=== PATIENT | female | born 1965 | race Caucasian/White ===

== ENCOUNTER → 2016-12-06 | Outpatient (CLI) | payer BC ==
[~2016-12-06] MED LIST: DAPA10TA PO; DOXY100C2 PO; DULO30CA48 PO; EMPA10TA PO; ERGO500028 PO; FLUC150T PO; FLUC150T2 PO; FOLI0.4T2 PO; GBPN100C PO; HYDR-2890 PO; INSU100I10 SQ; LEVE1U SQ; MELO-195 PO; MTF500T PO; NITR100C10 PO; OXYC20TA63 PO; PREG150C PO; TRAM50TA2 PO; VITA150T PO
--- OUTSIDE RECORDS SUMMARY | 2016-12-06 14:06 | XMS REPORT | Continuity of Care Document ---
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 If you do not see the information that you expected, contact Release of Information in the Health Information Management department at [phone] for further assistance in locating additional records.[facility] Active Allergies and Adverse Reactions Allergen Noted Date Severity Reactions Comments Sulfa (Sulfonamide 09/09/2016 Medium HIVES Antibiotics) Current Medications Prescription Sig. Disp. Refills Start End Date Status Date pregabalin (LYRICA) 75 mg Take 75 mg by mouth twice Active capsule daily. MELOXICAM PO Take by mouth. Active duloxetine DR (CYMBALTA) Take 30 mg by mouth Active 30 mg capsule daily. HYDROcodone/acetaminophen Take 1 Tab by mouth every Active (+) (NORCO) 10/325 mg 6 hours as needed for tablet Pain potassium Active ERGOCALCIFEROL (VITAMIN Take by mouth. Active D2) (VITAMIN D PO) MECOBALAMIN/L-MEFOLATE/B6 Take by mouth. Active PHOS (METANX PO) Active Problems Problem Noted Date Multiple thyroid nodules 09/09/2016 Most Recent Encounters Date Type Specialty Providers Description 09/09/2016 Office Visit Otolaryngology Taye Figueroa MD Multiple thyroid nodules (Primary Dx) Social History Tobacco Use Types Packs/Day Years Used Date Never Smoker Smokeless Tobacco: Never Used Alcohol Use Drinks/Week oz/Week Comments Yes 1 Cans of 0.6 beer Last Filed Vital Signs Vital Sign Reading Time Taken Blood Pressure 148/93 09/09/2016 11:15 AM CDT Pulse 101 09/09/2016 11:15 AM CDT Temperature - - Respiratory Rate - - Height 1.753 m (5' 9") 09/09/2016 11:15 AM CDT Weight 92.625 kg (204 lb 3.2 oz) 09/09/2016 11:15 AM CDT Body Mass Index 30.14 09/09/2016 11:15 AM CDT Oxygen Saturation - - Plan of Care Date Type Specialty Providers Description 01/10/2017 Appointment Radiology Taye Figueroa MD [address] [facility] [address] [place] [address] [phone] (Fax) 03/10/2017 Appointment Otolaryngology Taye Figueroa MD [address] [facility] [address] [place] [address] [phone] (Fax) Health Maintenance Due Date Last Done Comments Physical (Comprehensive) 1973 Exam Pertussis Vaccine 1977 Tetanus Vaccine 1983 Cervical Cancer Screening 1987 Breast Cancer Screening 2006 Influenza Vaccine 07/22/2016 Colorectal Cancer 2016 Screening Results from Last 3 Months Not on file
--- NOTE | 2016-12-06 14:54 | Diagnostic Imaging Report ---
INDICATION: Pelvic pain, fibroids noted on recent MRI. COMPARISON: No previous ultrasound. DISCUSSION: Transabdominal and transvaginal sonographic evaluation of the pelvis was performed. The uterus is normal in echotexture and size measuring 8.4 x 6.2 x 4.7 cm. Normal endometrial thickness measuring 0.4 cm. Solid shadowing foci within the uterus are most consistent with uterine fibroids. The largest measures 1.7 cm on the right. The second largest on the left measures 1.3 cm. There is likely an additional subcentimeter fibroid also present. Neither ovary was visualized. No abnormal adnexal mass or fluid. IMPRESSION: 1. Fibroid uterus. 2. Nonvisualization of the ovaries. Dictated by: Dictated on workstation # [id number]
== END ==
LOC: RAD 14:03
PROVIDERS: ATTEND Nurse Practitioner Family
DX: R10.2 Pelvic and perineal pain (principal)
CPT/HCPCS: 76830; 76856

== ENCOUNTER 2017-01-09 12:29 | Emergency (ER) | payer BC, OTHER ==
[~2017-01-09] VITALS: Ht 172.7 cm; Wt 77.1 kg
[~2017-01-09 12:29] MED LIST changes: -FLUC150T2 PO
--- OUTSIDE RECORDS SUMMARY | 2017-01-09 12:34 | XMS REPORT | Continuity of Care Document ---
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 If you do not see the information that you expected, contact Release of Information in the Health Information Management department at [phone] for further assistance in locating additional records.[facility] Active Allergies and Adverse Reactions [...] Problem Noted Date Multiple thyroid nodules 09/09/2016 Social History Tobacco Use Types Packs/Day Years [...] 01/10/2017 Appointment Radiology Taye Figueroa MD [address] [facility] [address] [place] [address] [phone] (Fax) 03/10/2017 Appointment Otolaryngology Taye Figueroa MD [address] [facility] [address] [place] [address] [phone] (Fax) Health Maintenance Due Date Last Done Comments Physical (Comprehensive) 1973 Exam Pertussis Vaccine 1977 Tetanus Vaccine 1983 Cervical Cancer Screening 1987 Breast Cancer Screening 2006 Influenza Vaccine 07/22/2016 Colorectal Cancer 2016 Screening Results from Last 3 Months Not on file
--- NOTE | 2017-01-09 13:00 | ED General ---
General Stated Complaint: HIGH BS Source of Information: Patient, Family Exam Limitations: No Limitations History of Present Illness Time Seen by Provider: 12:48 Initial Comments Patient presents the ER with complaint of unable to keep her blood sugars down high at 450. Will she get him was in the 300s. This is been going on since this morning she started feeling some nausea and vomiting after waking up. She did eat breakfast breath and oatmeal. Despite her nausea she has not vomited yet. She has had no other constitutional symptoms to include fever nausea, chills, diarrhea, constipation, rash, malaise, nasal congestion, ear fullness. She does have a history of chronic headaches and fibromyalgia which is at her baseline at this point. She was given butalbital with caffeine from her PCP but is not taking it yet. She states she was in the hospital a year or 2 ago for similar problem where she could not get her blood sugars under control but denies having diabetic ketoacidosis. She denies dysuria or discharge. She is postmenopausal. Allergies and Home Medications Allergies Coded Allergies: Sulfa (Sulfonamide Antibiotics) (Verified Allergy, Mild, 04/14/13) Home Medications Fluconazole 150 Mg Tablet #1 150 MG PO ONCE Prescribed by: RODOLFO TANG on 01/09/17 1406 Folic Acid 0.4 Mg Tablet 0.4 MG PO DAILY (Reported) Hydrocodone Bit/Acetaminophen 1 Each Tablet #30 1 TAB PO HS (Reported) Insulin Determir 1 Unit/0.01 Ml Soln 30Days 24 UNIT SQ HS Prescribed by: JANE DWYER on 06/01/15 1125 Meloxicam 15 Mg Tablet #30 15 MG PO DAILY (Reported) Metformin Hcl 500 Mg Tablet 500 MG PO BID WITH MEALS (Reported) Metformin Hcl 500 Mg Tab 30Days 500 MG PO DAILY@ Prescribed by: JANE DWYER on 06/01/15 1125 Nitrofurantoin Monohyd/M-Cryst 100 Mg Capsule #14 1 CAP PO BID (Reported) Oxycodone Hcl 20 Mg Tab.sr.12h #60 20 MG PO DAILY PRN PRN PAIN (Reported) Pregabalin 150 Mg Capsule 150 MG PO BID (Reported) Tramadol Hcl 50 Mg Tablet 50 MG PO DAILY PRN PRN PAIN (Reported) Vitamin B Complex & Vit C No.4 150 Mg Tablet 150 MG PO DAILY (Reported) Constitutional: No chills, No diaphoresis, No dizziness, No fever EENTM: see HPINo blurred vision, No double vision, No ear discharge, No ear pain, No hearing loss, No mouth pain, No nose congestion Respiratory: No cough, No dyspnea on exertion, No phlegm, No short of breath, No wheezing Cardiovascular: No chest pain, No edema, No syncope Gastrointestinal: No abdominal pain, No constipation, diarrhea (occasional, last loose stool was 2 days ago) nauseaNo vomiting Genitourinary: No discharge, No dysuria, No frequency Musculoskeletal: see HPI (fibromyalgia general body aches and headache) Skin: No pruritus, No rash Psychiatric/Neurological: Denies Anxiety, Denies Depressed, Headache Past Ybiseku-Stglav-Vecldx Hx Patient Social History Alcohol Use: Denies Use Recreational Drug Use: No Recent Foreign Travel: No Contact w/Someone Who Travel: No Seasonal Allergies Seasonal Allergies: No Surgeries HX Surgeries: Yes Surgeries: Section, Gallbladder Respiratory Hx Respiratory Disorders: No Cardiovascular Hx Cardiac Disorders: No Neurological Hx Neurological Disorders: Yes Neurological Disorders: Headaches /Migraines Reproductive System Hx Reproductive Disorders: No Sexually Transmitted Disease: No HIV/AIDS: No 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 Physical Exam Vital Signs Vital Sign - Last 12Hours 01/09/17 12:50 Temp 98.4 Pulse 96 Resp 16 B/P 148/114 Pulse Ox 98 O2 Delivery Room Air Capillary Refill : General Appearance: WD/WN Mild Distress (complaint of headache with photophobia) Eyes: Bilateral Eye EOMI, Bilateral Eye Normal Inspection, Bilateral Eye PERRL HEENT: PERRL/EOMI TMs Normal Normal ENT Inspection Pharynx Normal Neck: Full Range of Motion Normal Inspection Non Tender Supple Respiratory: Chest Non Tender Lungs Clear Normal Breath Sounds Cardiovascular: Regular Rate, Rhythm No Edema Normal Peripheral Pulses Gastrointestinal: Normal Bowel Sounds No Organomegaly Non Tender Soft Back: Normal Inspection No Vertebral Tenderness CVA Tenderness (L) CVA Tenderness (R) Extremity: Normal Capillary Refill Normal Inspection No Calf Tenderness No Pedal Edema Neurologic/Psychiatric: Alert Oriented x3 No Motor/Sensory Deficits Normal Mood/Affect Skin: Normal Color Warm/Dry Progress/Results/Core Measures Results/Orders Lab Results Laboratory Tests Test 01/09/17 12:55 01/09/17 12:57 01/09/17 13:16 01/09/17 14:06 Range/Units Glucometer 306 H 255 H 70-110 MG/DL Alanine Aminotransferase (ALT/SGPT) 29 0-55 U/L Albumin 3.7 3.2-4.5 G/DL Alkaline Phosphatase 130 40-136 U/L Amylase Level 18 L 25-125 U/L Anion Gap 9 5-14 MMOL/L Aspartate Amino Transf (AST/SGOT) 20 5-34 U/L BUN/Creatinine Ratio 8 Basophils # (Auto) 0.1 0.0-0.1 10^3/uL Basophils (%) (Auto) 1 0-10 % Blood Urea Nitrogen 6 L 7-18 MG/DL Calcium Level 9.3 8.5-10.1 MG/DL Carbon Dioxide Level 30 21-32 MMOL/L Chloride Level 99 98-107 MMOL/L Creatinine 0.72 0.60-1.30 MG/DL Eosinophils # (Auto) 0.1 0.0-0.3 10^3/uL Eosinophils (%) (Auto) 1 0-10 % Estimat Glomerular Filtration Rate > 60 Glucose Level 315 H 70-105 MG/DL Hematocrit 38 35-52 % Hemoglobin 13.8 11.5-16.0 G/DL Lymphocytes # (Auto) 2.2 1.0-4.0 X 10^3 Lymphocytes (%) (Auto) 25 12-44 % Magnesium Level 2.0 1.8-2.4 MG/DL Mean Corpuscular Hemoglobin 30 25-34 PG Mean Corpuscular Hemoglobin Concent 36 32-36 G/DL Mean Corpuscular Volume 84 80-99 FL Mean Platelet Volume 9.5 7.4-10.4 FL Monocytes # (Auto) 0.6 0.0-1.0 X 10^3 Monocytes (%) (Auto) 7 0-12 % Neutrophils # (Auto) 5.8 1.8-7.8 X 10^3 Neutrophils (%) (Auto) 67 42-75 % Platelet Count 332 130-400 10^3/uL Potassium Level 3.6 3.6-5.0 MMOL/L Red Blood Count 4.58 4.35-5.85 10^6/uL Red Cell Distribution Width 13.5 10.0-14.5 % Sodium Level 138 135-145 MMOL/L Thyroid Stimulating Hormone (TSH) 0.98 0.35-4.94 UIU/ML Total Bilirubin 0.9 0.1-1.0 MG/DL Total Protein 6.7 6.4-8.2 G/DL White Blood Count 8.7 4.3-11.0 10^3/uL Urine Bacteria FEW H /HPF Urine Bilirubin NEGATIVE NEGATIVE Urine Casts NONE /LPF Urine Clarity CLEAR Urine Color YELLOW Urine Crystals NONE /LPF Urine Culture Indicated NO Urine Glucose (UA) 4+ H NEGATIVE Urine Ketones NEGATIVE NEGATIVE Urine Leukocyte Esterase 1+ H NEGATIVE Urine Mucus NEGATIVE /LPF Urine Nitrite NEGATIVE NEGATIVE Urine Protein 1+ H NEGATIVE Urine RBC NONE /HPF Urine RBC (Auto) NEGATIVE NEGATIVE Urine Specific [place] 1.020 1.016-1.022 Urine Squamous Epithelial Cells 25-50 H /HPF Urine Urobilinogen NORMAL NORMAL MG/DL Urine WBC NONE /HPF Urine Yeast FEW H /HPF Urine pH 6.5 5-9 My Orders Orders-RODOLFO TANG Amylase (01/09/17 13:00) Cbc With Automated Diff (01/09/17 13:00) Comprehensive Metabolic Panel (01/09/17 13:00) Magnesium (01/09/17 13:00) Thyroid Stimulating Hormone (01/09/17 13:00) Ua Culture If Indicated (01/09/17 13:00) Accucheck Stat ONCE (01/09/17 13:08) Saline Lock/Iv-Start (01/09/17 13:08) Insulin (Regular) Human (Humulin R (Per (01/09/17 13:30) Insulin (Regular) Human (Humulin R (Per (01/09/17 13:30) Ondansetron Injection (Zofran Injectio (01/09/17 13:30) Lactated Ringers (Lr 1000 Ml Iv Solution (01/09/17 14:01) Promethazine Tablet (Phenergan Tablet) (01/09/17 14:15) Accucheck Stat ONCE (01/09/17 14:14) Medications Given in ED Current Medications Medications Dose Ordered Sig/Cher Route Start Time Stop Time Status Last Admin Dose Admin Insulin Human Regular 7 unit ONCE ONCE IV 01/09/17 13:30 01/09/17 13:31 DC 01/09/17 13:33 7 UNIT Lactated Ringer's 1,000 ml @ 0 mls/hr Q0M ONCE IV 01/09/17 14:01 01/09/17 14:03 DC 01/09/17 14:18 0 MLS/HR Ondansetron HCl 4 mg 4 mg ONCE ONCE IVP 01/09/17 13:30 01/09/17 13:31 DC 01/09/17 13:33 4 MG Promethazine HCl 25 mg ONCE ONCE PO 01/09/17 14:15 01/09/17 14:16 DC 01/09/17 14:18 25 MG Vital Signs/I&O Vital Sign - Last 12Hours 01/09/17 12:50 Temp 98.4 Pulse 96 Resp 16 B/P 148/114 Pulse Ox 98 O2 Delivery Room Air Progress Note : Time: 13:13 Progress Note Review the urine and basic set of blood. There is no focal signs of infection to drive her blood glucose is high. 306 in the ED on admission. Patient is not necessarily fastidious about taking her insulin and does not take any extra insulin when her sugars are high. She is on a long-acting 30 units daily at bedtime. She's not in DKA we'll give her a liter fluids and give her instructions on how to use her insulin. 0.1 units per kilogram one time dose regular insulin. 7 units. Departure Impression Impression: Primary Impression: Diabetes mellitus Qualified Code: E11.8 - Type 2 diabetes mellitus with unspecified complications Additional Impressions: Hyperglycemia Yeast cells and fungal elements present on diagnostic testing Disposition: 01 HOME, SELF-CARE Condition: Improved Departure-Patient Inst. Decision time for Depature: 14:40 Referrals: ROBERT BELLE DNP (PCP) Primary Care Physician Patient Instructions: Diabetes Type 2 (DC) Add. Discharge Instructions: You have diabetes type 2 which will require more insulin. You should take 40 units of Levemir tonight when you get home and eat a sensible carbohydrate controlled diet. Keep your follow-up appointment in the morning with your primary care physician. Drink plenty of fluids. If your symptoms return, worsen or new symptoms appear you should return to the clinic or ER as appropriate. If your headache returns it is appropriate to Use the medicine prescribed by your primary care physician as needed. Your urinalysis incidentally showed some yeast which may represent a yeast infection so I have given you a prescription for a single dose of fluconazole. Pick this up from your pharmacy and take it when you get home with some food. Scripts Fluconazole 150 Mg [id number] Mg PO ONCE #1 TAB Ref 0 Prov:RODOLFO TANG 01/09/17 RODOLFO TANG Jan 09, 2017 13:00
[2017-01-09 13:11] LABS: BASOPHILS # (AUTO) 0.1 10^3/uL (0.0-0.1); BASOPHILS % (AUTO) 1 % (0-10); EOSINOPHILS # (AUTO) 0.1 10^3/uL (0.0-0.3); EOSINOPHILS % (AUTO) 1 % (0-10); LYMPHOCYTES # (AUTO) 2.2 X 10^3 (1.0-4.0); LYMPHOCYTES % (AUTO) 25 % (12-44); MEAN CORPUSCULAR HEMOGLOBIN 30 PG (25-34); MEAN CORPUSCULAR HGB CONC 36 G/DL (32-36); MEAN CORPUSCULAR VOLUME 84 FL (80-99); MEAN PLATELET VOLUME 9.5 FL (7.4-10.4); MONOCYTES # (AUTO) 0.6 X 10^3 (0.0-1.0); MONOCYTES % (AUTO) 7 % (0-12); NEUTROPHILS # (AUTO) 5.8 X 10^3 (1.8-7.8); NEUTROPHILS % (AUTO) 67 % (42-75); PLATELET COUNT 332 10^3/uL (130-400); RED BLOOD COUNT 4.58 10^6/uL (4.35-5.85); RED CELL DISTRIBUTION WIDTH 13.5 % (10.0-14.5); WHITE BLOOD COUNT 8.7 10^3/uL (4.3-11.0)
[2017-01-09 13:23] LABS: ALANINE AMINOTRANSFERASE 29 U/L (0-55); ALBUMIN 3.7 G/DL (3.2-4.5); AMYLASE 18 U/L (25-125); ANION GAP 9 MMOL/L (5-14); ASPARTATE AMINO TRANSFERASE 20 U/L (5-34); BILIRUBIN,TOTAL 0.9 MG/DL (0.1-1.0); BLOOD UREA NITROGEN 6 MG/DL (7-18); BUN/CREATININE RATIO 8; CALCIUM 9.3 MG/DL (8.5-10.1); CARBON DIOXIDE 30 MMOL/L (21-32); CHLORIDE 99 MMOL/L (98-107); CREATININE SERUM 0.72 MG/DL (0.60-1.30); GFR ESTIMATED > 60; GLUCOSE 315 MG/DL (70-105); POTASSIUM 3.6 MMOL/L (3.6-5.0); SODIUM 138 MMOL/L (135-145); TOTAL PROTEIN 6.7 G/DL (6.4-8.2)
[2017-01-09 13:27] LABS: BILIRUBIN,URINE NEGATIVE (NEGATIVE); KETONES,URINE NEGATIVE (NEGATIVE); LEUKOCYTE ESTERASE ,URINE 1+ (NEGATIVE); NITRITE,URINE NEGATIVE (NEGATIVE); PH,URINE 6.5 (5-9); PROTEIN,URINE 1+ (NEGATIVE); UROBILINOGEN,URINE NORMAL (NORMAL)
[2017-01-09] MEDS ORDERED: ONDANSETRON 4 MG/2 ML (SDV) Z0FRAN IVP ONE (13:30)
[2017-01-09] MEDS ORDERED: inSUlin (REGULAR) HUMAN 1 UNIT/0.01 ML (CHARGE PER UNIT) IV ONE (13:30)
[2017-01-09] MEDS ORDERED: inSUlin (REGULAR) HUMAN 1 UNIT/0.01 ML (CHARGE PER UNIT) SC ONE (13:30)
[2017-01-09 13:42] LABS: SQUAMOUS EPITHELIAL CELL,UR 25-50 /HPF; YEAST,URINE FEW /HPF
[2017-01-09 13:43] LABS: THYROID STIMULATING HORMONE 0.98 UIU/ML (0.35-4.94)
[2017-01-09] MEDS ORDERED: LACTATED RINGERS 1,000 ML IV ONE (14:01)
[2017-01-09] MEDS ORDERED: FLUC150T2 PO (14:06)
[2017-01-09] MEDS ORDERED: PROMETHAZINE 25 MG (PHENERGAN) TAB PO ONE (14:15)
[2017-01-09 15:09] VITALS: BP 156/89
== END 2017-01-09 15:10 | disposition home or self-care (01) ==
LOC: EDUNIT# 12:29 → ER 12:31
DX: E11.65 Type 2 diabetes mellitus with hyperglycemia (principal); M79.7 Fibromyalgia; Z79.84 Long term (current) use of oral hypoglycemic drugs; Z79.4 Long term (current) use of insulin
CPT/HCPCS: 36415; 80053; 81000; 82150; 82962; 83735; 84443; 85025; 96361; 96374; 96375

== ENCOUNTER → 2017-07-26 | Outpatient (CLI) | payer BC, OTHER ==
[~2017-07-26] MED LIST changes: +FLUC150T2 PO
--- NOTE | 2017-07-26 12:17 | Diagnostic Imaging Report ---
PROCEDURE: US left lower extremity venous. TECHNIQUE: Multiple real-time grayscale images were obtained over the left lower extremity in various projections. Additional duplex Doppler and color Doppler images were also obtained. INDICATION: Left leg pain with redness and swelling FINDINGS: The left common femoral femoral and popliteal veins demonstrate normal response to compression, augmentation and Valsalva. There is a heterogeneous area adjacent to the red area on the lateral thigh. This may reflect cellulitis although there is no drainable fluid collection to suggest abscess. This measures approximately 4 x 3 x 2.6 cm. There are no other discrete fluid collections or masses. IMPRESSION: No evidence of deep venous thrombosis in the left lower extremity. Heterogeneous area along the lateral aspect of thigh, suspect for focal cellulitis without evidence of abscess. Dictated by: Dictated on workstation # [id number]
== END ==
LOC: RAD 11:39
DX: M79.652 Pain in left thigh (principal); R22.42 Localized swelling, mass and lump, left lower limb

== ENCOUNTER → 2017-08-22 | Outpatient (CLI) | payer BC ==
--- NOTE | 2017-08-22 17:50 | Diagnostic Imaging Report ---
INDICATION: Followup lump medial thigh. COMPARISON: 07/26/2017. FINDINGS: As seen on the prior ultrasound, there is an ill-defined heterogeneous lesion in the medial distal left thigh without discrete drainable fluid collection. The overall size of this lesion today measures about 2.5 cm x 2 cm x 3.6 cm, previously measuring 2.9 cm x 2.6 cm x 4 cm. It appears slightly smaller today. Again this is nonspecific but may be related to an underlying cellulitis. IMPRESSION: Ill-defined heterogeneous lesion in the medial left thigh persists but is smaller in size and conspicuity when compared to the prior study. Again, there is no drainable fluid collection and this may be secondary to cellulitis. Dictated by: Dictated on workstation # [id number]
== END ==
LOC: RAD 16:57
PROVIDERS: ATTEND Surgery
DX: L98.9 Disorder of the skin and subcutaneous tissue, unspecified (principal)
CPT/HCPCS: 76881

== ENCOUNTER → 2017-11-20 | Outpatient (CLI) | payer BC ==
[2017-11-20 10:10] LABS: BASOPHILS # (AUTO) 0.1 10^3/uL (0.0-0.1); BASOPHILS % (AUTO) 1 % (0-10); EOSINOPHILS # (AUTO) 0.1 10^3/uL (0.0-0.3); EOSINOPHILS % (AUTO) 2 % (0-10); HEMATOCRIT 44 % (35-52); HEMOGLOBIN 15.3 G/DL (11.5-16.0); LYMPHOCYTES # (AUTO) 2.3 X 10^3 (1.0-4.0); LYMPHOCYTES % (AUTO) 32 % (12-44); MEAN CORPUSCULAR HEMOGLOBIN 29 PG (25-34); MEAN CORPUSCULAR HGB CONC 35 G/DL (32-36); MEAN CORPUSCULAR VOLUME 83 FL (80-99); MEAN PLATELET VOLUME 9.7 FL (7.4-10.4); MONOCYTES # (AUTO) 0.5 X 10^3 (0.0-1.0); MONOCYTES % (AUTO) 7 % (0-12); NEUTROPHILS # (AUTO) 4.1 X 10^3 (1.8-7.8); NEUTROPHILS % (AUTO) 58 % (42-75); PLATELET COUNT 306 10^3/uL (130-400); RED BLOOD COUNT 5.33 10^6/uL (4.35-5.85); RED CELL DISTRIBUTION WIDTH 12.9 % (10.0-14.5)
[2017-11-20 10:30] LABS: ALANINE AMINOTRANSFERASE 28 U/L (0-55); ALKALINE PHOSPHATASE 182 U/L (40-136); BILIRUBIN,TOTAL 1.3 MG/DL (0.1-1.0); BUN/CREATININE RATIO 8; CALCIUM 9.5 MG/DL (8.5-10.1); CARBON DIOXIDE 29 MMOL/L (21-32); CHLORIDE 100 MMOL/L (98-107); CHOLESTEROL 207 MG/DL (< 200); CREATININE SERUM 0.71 MG/DL (0.60-1.30); GFR ESTIMATED > 60; GLUCOSE 144 MG/DL (70-105); HDL CHOLESTEROL 57 MG/DL (40-60); MAGNESIUM 1.8 MG/DL (1.8-2.4); POTASSIUM 3.6 MMOL/L (3.6-5.0); SODIUM 139 MMOL/L (135-145); TOTAL PROTEIN 8.4 GM/DL (6.4-8.2); TRIGLYCERIDES 113 MG/DL (<150); VLDL CHOLESTEROL 23 MG/DL (5-40)
== END ==
LOC: LAB 09:49
PROVIDERS: ATTEND Internal Medicine
DX: E11.9 Type 2 diabetes mellitus without complications (principal); E78.5 Hyperlipidemia, unspecified
CPT/HCPCS: 36415; 80053; 80061; 82306; 82308; 82728; 83036; 83735; 84443; 85025; 86038; 86141

== ENCOUNTER → 2018-03-10 | Outpatient (CLI) | payer BC ==
[2018-03-10 13:08] LABS: BASOPHILS # (AUTO) 0.1 10^3/uL (0.0-0.1); BASOPHILS % (AUTO) 1 % (0-10); EOSINOPHILS # (AUTO) 0.2 10^3/uL (0.0-0.3); EOSINOPHILS % (AUTO) 2 % (0-10); HEMATOCRIT 39 % (35-52); HEMOGLOBIN 13.7 G/DL (11.5-16.0); LYMPHOCYTES # (AUTO) 3.1 X 10^3 (1.0-4.0); LYMPHOCYTES % (AUTO) 31 % (12-44); MEAN CORPUSCULAR HEMOGLOBIN 29 PG (25-34); MEAN CORPUSCULAR HGB CONC 35 G/DL (32-36); MEAN CORPUSCULAR VOLUME 82 FL (80-99); MEAN PLATELET VOLUME 9.3 FL (7.4-10.4); MONOCYTES # (AUTO) 0.8 X 10^3 (0.0-1.0); MONOCYTES % (AUTO) 8 % (0-12); NEUTROPHILS # (AUTO) 6.1 X 10^3 (1.8-7.8); NEUTROPHILS % (AUTO) 60 % (42-75); PLATELET COUNT 313 10^3/uL (130-400); RED BLOOD COUNT 4.73 10^6/uL (4.35-5.85); RED CELL DISTRIBUTION WIDTH 13.1 % (10.0-14.5); WHITE BLOOD COUNT 10.1 10^3/uL (4.3-11.0)
--- NOTE | 2018-03-10 13:10 | Diagnostic Imaging Report ---
INDICATION: Foot ulcer plantar aspect of the right foot at the level of the base of the second toe. TIME OF EXAMINATION: 01:08 p.m. FINDINGS: A BB marker is placed at the area of ulcer. Three views of the right foot were obtained. No definite soft tissue gas is identified. No bony destructive changes are seen to suggest acute osteomyelitis. No fractures are identified. The right foot is generally demineralized. IMPRESSION: Demineralization. No soft tissue gas or bony destructive changes are seen to suggest acute osteomyelitis. Dictated by: Dictated on workstation # [id number]
[2018-03-10 13:22] LABS: ALANINE AMINOTRANSFERASE 25 U/L (0-55); ALBUMIN 3.7 GM/DL (3.2-4.5); ALKALINE PHOSPHATASE 162 U/L (40-136); BILIRUBIN,TOTAL 0.9 MG/DL (0.1-1.0); BUN/CREATININE RATIO 15; CALCIUM 8.9 MG/DL (8.5-10.1); CARBON DIOXIDE 29 MMOL/L (21-32); CHLORIDE 101 MMOL/L (98-107); CREATININE SERUM 0.68 MG/DL (0.60-1.30); GFR ESTIMATED > 60; GLUCOSE 180 MG/DL (70-105); POTASSIUM 3.5 MMOL/L (3.6-5.0); SODIUM 137 MMOL/L (135-145); TOTAL PROTEIN 7.2 GM/DL (6.4-8.2)
== END ==
LOC: RAD 12:24
PROVIDERS: ATTEND Surgery
DX: M81.0 Age-related osteoporosis without current pathological fracture (principal); E11.621 Type 2 diabetes mellitus with foot ulcer; E11.42 Type 2 diabetes mellitus with diabetic polyneuropathy; L97.512 Non-pressure chronic ulcer of other part of right foot with fat layer exposed; M79.7 Fibromyalgia
CPT/HCPCS: 36415; 73630; 80053; 83036; 85025

== ENCOUNTER → 2018-03-20 | Outpatient (CLI) | payer BC | LOC: WOUNDCARE 08:12 | PROVIDERS: ATTEND Nurse Practitioner | DX: E11.621 Type 2 diabetes mellitus with foot ulcer (principal); L97.512 Non-pressure chronic ulcer of other part of right foot with fat layer exposed; E11.42 Type 2 diabetes mellitus with diabetic polyneuropathy; M79.7 Fibromyalgia | CPT/HCPCS: 11042 ==

== ENCOUNTER → 2018-03-27 | Outpatient (CLI) | payer BC | LOC: WOUNDCARE 08:30 | PROVIDERS: ATTEND Surgery | DX: E11.621 Type 2 diabetes mellitus with foot ulcer (principal); L97.512 Non-pressure chronic ulcer of other part of right foot with fat layer exposed; E11.42 Type 2 diabetes mellitus with diabetic polyneuropathy; M79.7 Fibromyalgia | CPT/HCPCS: 11042 ==

== ENCOUNTER → 2018-03-29 | Outpatient (CLI) | payer BC | LOC: WOUNDCARE 08:15 | PROVIDERS: ATTEND Surgery | DX: E11.621 Type 2 diabetes mellitus with foot ulcer (principal); L97.512 Non-pressure chronic ulcer of other part of right foot with fat layer exposed; E11.42 Type 2 diabetes mellitus with diabetic polyneuropathy; M79.7 Fibromyalgia | CPT/HCPCS: 29445 ==

== ENCOUNTER → 2018-04-05 | Outpatient (CLI) | payer BC | LOC: WOUNDCARE 08:19 | PROVIDERS: ATTEND Surgery | DX: E11.621 Type 2 diabetes mellitus with foot ulcer (principal); L97.512 Non-pressure chronic ulcer of other part of right foot with fat layer exposed; E11.42 Type 2 diabetes mellitus with diabetic polyneuropathy; M79.7 Fibromyalgia | CPT/HCPCS: 11042 ==

== ENCOUNTER → 2018-04-12 | Outpatient (CLI) | payer BC | LOC: WOUNDCARE 08:10 | PROVIDERS: ATTEND Surgery | DX: E11.621 Type 2 diabetes mellitus with foot ulcer (principal); E11.42 Type 2 diabetes mellitus with diabetic polyneuropathy; L97.512 Non-pressure chronic ulcer of other part of right foot with fat layer exposed; M79.7 Fibromyalgia | CPT/HCPCS: 11042 ==

== ENCOUNTER → 2018-04-19 | Outpatient (CLI) | payer BC | LOC: WOUNDCARE 09:48 | PROVIDERS: ATTEND Surgery | DX: E11.621 Type 2 diabetes mellitus with foot ulcer (principal); L97.512 Non-pressure chronic ulcer of other part of right foot with fat layer exposed; E11.42 Type 2 diabetes mellitus with diabetic polyneuropathy; M79.7 Fibromyalgia | CPT/HCPCS: 11042 ==

== ENCOUNTER → 2018-04-26 | Outpatient (CLI) | payer BC | LOC: WOUNDCARE 08:29 | PROVIDERS: ATTEND Surgery | DX: E11.621 Type 2 diabetes mellitus with foot ulcer (principal); E11.42 Type 2 diabetes mellitus with diabetic polyneuropathy; L97.512 Non-pressure chronic ulcer of other part of right foot with fat layer exposed; M79.7 Fibromyalgia | CPT/HCPCS: 11042 ==

== ENCOUNTER → 2018-05-03 | Outpatient (CLI) | payer BC | LOC: WOUNDCARE 08:12 | PROVIDERS: ATTEND Surgery | DX: E11.621 Type 2 diabetes mellitus with foot ulcer (principal); E11.42 Type 2 diabetes mellitus with diabetic polyneuropathy; L97.512 Non-pressure chronic ulcer of other part of right foot with fat layer exposed; M79.7 Fibromyalgia | CPT/HCPCS: 29445 ==

== ENCOUNTER → 2018-05-10 | Outpatient (CLI) | payer BC ==
[~2018-05-10] MED LIST changes: +LIDOCAINE PF 2% 5 ML (XYLOCAINE) VIAL ONE
== END ==
LOC: WOUNDCARE 08:09
PROVIDERS: ATTEND Surgery
DX: E11.621 Type 2 diabetes mellitus with foot ulcer (principal); L97.512 Non-pressure chronic ulcer of other part of right foot with fat layer exposed
CPT/HCPCS: 99212

== ENCOUNTER → 2018-05-22 | Outpatient (CLI) | payer BC ==
[~2018-05-22] MED LIST changes: -LIDOCAINE PF 2% 5 ML (XYLOCAINE) VIAL ONE
--- NOTE | 2018-05-22 16:08 | Diagnostic Imaging Report ---
INDICATION: Pain and swelling. COMPARISON: None. FINDINGS: Three views of the right ankle are obtained. There is moderate soft tissue swelling. No acute fracture, malalignment or osseous destructive process is seen. Joint spaces preserved. IMPRESSION: Soft tissue swelling without evidence of an acute osseous abnormality. Dictated by: Dictated on workstation # [id number]
[2018-05-22 16:16] LABS: MEAN PLATELET VOLUME 9.6 FL (7.4-10.4); RED BLOOD COUNT 4.42 10^6/uL (4.35-5.85); RED CELL DISTRIBUTION WIDTH 13.1 % (10.0-14.5); WHITE BLOOD COUNT 7.7 10^3/uL (4.3-11.0)
[2018-05-22 17:28] LABS: URIC ACID 5.2 MG/DL (2.6-7.2)
== END ==
LOC: RAD 15:37
PROVIDERS: ATTEND Internal Medicine
DX: M25.571 Pain in right ankle and joints of right foot (principal); M25.471 Effusion, right ankle
CPT/HCPCS: 36415; 73610; 84550; 85027; 85379; 86141

== ENCOUNTER → 2018-05-25 | Outpatient (CLI) | payer BC ==
--- NOTE | 2018-05-25 09:09 | Diagnostic Imaging Report ---
PROCEDURE: MRI right joint lower extremity without contrast. TECHNIQUE: Multiplanar, multisequence non contrast-enhanced MRI of the right lower extremity was accomplished. INDICATION: The patient was in a cast for six weeks for pressure ulcer treatment. Patient now complains of ankle pain and swelling. FINDINGS: There is robust marrow edema involving the calcaneus. Curvilinear low signal intensity line is vertically oriented along the posterior aspect of the calcaneus consistent with a fracture line. No other fractures of the calcaneus are seen. There is some mild edema of the navicular but no fracture is identified. The talus is unremarkable. The marrow signal intensity of the distal tibia and fibula appears normal. Cuboid and cuneiforms are unremarkable. There is some edema in the subcutaneous tissues about the right ankle. Talar dome is smooth. No osteochondral abnormality is identified. The Achilles tendon is intact and demonstrates normal signal intensity and morphology. The peroneus brevis and longus tendons appear to be intact. The posterior tibialis, flexor digitorum and flexor hallucis longus tendons appear to be intact. The anterior and posterior syndesmotic and talofibular ligaments appear to be intact. The superficial and deep bundles of the deltoid ligament are intact. IMPRESSION: Findings consistent with probable stress fracture of the posterior calcaneus with robust marrow edema present. There is some edema in the subcutaneous tissues about the right ankle. No definite ligamentous or tendinous abnormality is identified. Dictated by: Dictated on workstation # [id number]
== END ==
LOC: RAD 07:50
PROVIDERS: ATTEND Nurse Practitioner Family
DX: M25.571 Pain in right ankle and joints of right foot (principal); M25.471 Effusion, right ankle
CPT/HCPCS: 73721

== ENCOUNTER → 2018-07-06 | Outpatient (CLI) | payer BC ==
[2018-07-06 09:51] LABS: HEMOGLOBIN 13.2 G/DL (11.5-16.0); MEAN PLATELET VOLUME 9.2 FL (7.4-10.4); RED BLOOD COUNT 4.54 10^6/uL (4.35-5.85); RED CELL DISTRIBUTION WIDTH 12.9 % (10.0-14.5); WHITE BLOOD COUNT 7.2 10^3/uL (4.3-11.0)
[2018-07-06 10:09] LABS: ALANINE AMINOTRANSFERASE 16 U/L (0-55); ALBUMIN 3.5 GM/DL (3.2-4.5); ALKALINE PHOSPHATASE 154 U/L (40-136); BILIRUBIN,TOTAL 0.7 MG/DL (0.1-1.0); BUN/CREATININE RATIO 9; CALCIUM 8.8 MG/DL (8.5-10.1); CARBON DIOXIDE 30 MMOL/L (21-32); CHLORIDE 103 MMOL/L (98-107); CREATININE SERUM 0.67 MG/DL (0.60-1.30); GFR ESTIMATED > 60; GLUCOSE 140 MG/DL (70-105); POTASSIUM 3.9 MMOL/L (3.6-5.0); SODIUM 140 MMOL/L (135-145); TOTAL PROTEIN 6.9 GM/DL (6.4-8.2)
--- NOTE | 2018-07-06 11:55 | Diagnostic Imaging Report ---
Indication: Osteoporosis. No prior studies are available for comparison. Bone mineral analysis of the lumbar spine and both hips was performed. Bone mineral density lumbar spine L2-L4 is 1.007 with T score -1.6. Bone mineral density left femoral neck is 0.715 with T score -2.3. Bone mineral density right femoral neck is 0.715 with T score -2.3. Impression: Findings consistent with osteopenia of the lumbar spine and bilateral femoral necks. Dictated by: Dictated on workstation # [id number]
== END ==
LOC: RAD 09:31
PROVIDERS: ATTEND Physician Assistant
DX: M81.0 Age-related osteoporosis without current pathological fracture (principal); M85.89 Other specified disorders of bone density and structure, multiple sites; E55.9 Vitamin D deficiency, unspecified; R53.83 Other fatigue
CPT/HCPCS: 36415; 77080; 80053; 82306; 83970; 84443; 85027

== ENCOUNTER → 2018-08-25 | Outpatient (CLI) | payer BC, OTHER ==
[~2018-08-25] MED LIST changes: +CATHETER FLUSH 10 ML SYR IV PRN; +IOHEXOL 350 MG/ML 100 ML (OMNIPAQUE 350) VIAL IV ONE; +NS 250 ML (IVPB) BAG IV ONE; +RECEIVED CONTRAST (Hold Metformin) IV SCH
[2018-08-25 15:13] LABS: BUN/CREATININE RATIO 7; CREATININE SERUM 0.83 MG/DL (0.60-1.30); GFR ESTIMATED > 60
--- NOTE | 2018-08-25 15:54 | Diagnostic Imaging Report ---
PROCEDURE: CT neck soft tissue with contrast. TECHNIQUE: Multiple contiguous axial images were obtained through the neck after the administration of contrast. INDICATION: Neck mass. COMPARISON: Correlation is made with prior CT neck from 01/23/2013. FINDINGS: The visualized intracranial structures are unremarkable. The posterior nasopharynx and oropharynx are unremarkable. Parapharyngeal fat planes are preserved. The larynx is unremarkable. No discrete thyroid mass is seen apart from a tiny low density in the left lobe. The submandibular and parotid glands appear to be symmetric bilaterally. Several prominent lymph nodes are identified in the jugulodigastric region on the left. Largest node measures 1.4 x 1.1 cm. Small submandibular nodes are also seen bilaterally. No posterior cervical lymphadenopathy is seen. IMPRESSION: Essentially unremarkable CT of the soft tissues of the neck with contrast. No discrete neck mass is identified. Dictated by: Dictated on workstation # [id number]
== END ==
LOC: RAD 14:36
PROVIDERS: ATTEND Nurse Practitioner Family
DX: E21.3 Hyperparathyroidism, unspecified (principal)
CPT/HCPCS: 36415; 70491; 82565; 84520

== ENCOUNTER 2018-09-11 08:06 | Outpatient (RCR) | payer BC, OTHER | END 2018-12-10 | disposition home or self-care (01) | LOC: LAB 08:06 | PROVIDERS: ATTEND Surgery | DX: E04.2 Nontoxic multinodular goiter (principal); Z80.8 Family history of malignant neoplasm of other organs or systems | CPT/HCPCS: 36415; 82308 ==

== ENCOUNTER → 2018-09-11 | Outpatient (CLI) | payer BC, OTHER ==
[~2018-09-11] MED LIST changes: -CATHETER FLUSH 10 ML SYR IV PRN; -IOHEXOL 350 MG/ML 100 ML (OMNIPAQUE 350) VIAL IV ONE; -NS 250 ML (IVPB) BAG IV ONE; -RECEIVED CONTRAST (Hold Metformin) IV SCH
--- NOTE | 2018-09-11 08:48 | Diagnostic Imaging Report ---
PROCEDURE: US Thyroid. TECHNIQUE: Multiple real-time grayscale images were obtained of the thyroid in various projections. INDICATION: Thyroid nodules. Comparison is made with prior exam from 06/16/2016. FINDINGS: Right lobe of the thyroid measures 5.1 x 2.0 x 2.1 cm and the left lobe measures 4.3 x 1.2 x 1.4 cm. Right lobe demonstrates fairly homogeneous echotexture. No nodule in the right lobe is identified on today's study. Isthmus is 5 mm in thickness. Left lobe does contain 2 subcentimeter nodules in the upper pole, each approximately 6-7 mm in size. These are similar to prior exam. No dominant thyroid mass is detected. IMPRESSION: Stable subcentimeter left lobe thyroid nodules when compared with examination from 06/16/2016. Dictated by: Dictated on workstation # [id number]
== END ==
LOC: RAD 08:03
PROVIDERS: ATTEND Surgery
DX: E04.2 Nontoxic multinodular goiter (principal)
CPT/HCPCS: 76536

== ENCOUNTER → 2018-10-18 | Outpatient (CLI) | payer BC | LOC: WOUNDCARE 08:48 | PROVIDERS: ATTEND Orthopaedic Surgery Hand Surgery | DX: E11.621 Type 2 diabetes mellitus with foot ulcer (principal); L97.512 Non-pressure chronic ulcer of other part of right foot with fat layer exposed; L84 Corns and callosities; I87.2 Venous insufficiency (chronic) (peripheral) | CPT/HCPCS: 11042; 87070; 87077; 87205 ==

== ENCOUNTER → 2018-10-18 | Outpatient (CLI) | payer BC ==
--- NOTE | 2018-10-18 17:33 | Diagnostic Imaging Report ---
EXAMINATION: Right foot, three views. INDICATION: Chronic soft tissue ulcer involving the heel. Evaluate for osteomyelitis. COMPARISON: Right foot radiograph performed on 03/10/2018. FINDINGS: There is generalized osteopenia of the visualized bones. No fracture or acute osseous abnormality. No osseous erosion. Bony alignment is maintained. No significant arthritic change. There is mild soft tissue prominence of the heel soft tissues. No evidence of subcutaneous gas or radiopaque foreign body. IMPRESSION: No acute fracture or dislocation. No osseous erosion or evidence of osteomyelitis. Dictated by: Dictated on workstation # [id number]
== END ==
LOC: RAD 10:39
PROVIDERS: ATTEND Anesthesiology
DX: E11.621 Type 2 diabetes mellitus with foot ulcer (principal); L97.512 Non-pressure chronic ulcer of other part of right foot with fat layer exposed; L84 Corns and callosities; I87.2 Venous insufficiency (chronic) (peripheral)
CPT/HCPCS: 73630

== ENCOUNTER → 2018-10-25 | Outpatient (CLI) | payer BC | LOC: WOUNDCARE 08:54 | PROVIDERS: ATTEND Orthopaedic Surgery Hand Surgery | DX: L97.512 Non-pressure chronic ulcer of other part of right foot with fat layer exposed (principal); L84 Corns and callosities; E11.621 Type 2 diabetes mellitus with foot ulcer; I87.2 Venous insufficiency (chronic) (peripheral) | CPT/HCPCS: 11042 ==

== ENCOUNTER → 2018-11-01 | Outpatient (CLI) | payer BC | LOC: WOUNDCARE 08:52 | PROVIDERS: ATTEND Orthopaedic Surgery Hand Surgery | DX: E11.621 Type 2 diabetes mellitus with foot ulcer (principal); L97.512 Non-pressure chronic ulcer of other part of right foot with fat layer exposed; L84 Corns and callosities; I87.2 Venous insufficiency (chronic) (peripheral) | CPT/HCPCS: 11042 ==

== ENCOUNTER → 2018-11-08 | Outpatient (CLI) | payer BC | LOC: WOUNDCARE 08:48 | PROVIDERS: ATTEND Orthopaedic Surgery Hand Surgery | DX: E11.621 Type 2 diabetes mellitus with foot ulcer (principal); L97.512 Non-pressure chronic ulcer of other part of right foot with fat layer exposed; I87.2 Venous insufficiency (chronic) (peripheral); L84 Corns and callosities | CPT/HCPCS: 11042 ==

== ENCOUNTER → 2018-11-22 | Outpatient (CLI) | payer BC | LOC: WOUNDCARE 08:25 | PROVIDERS: ATTEND Surgery | DX: E11.621 Type 2 diabetes mellitus with foot ulcer (principal); L97.512 Non-pressure chronic ulcer of other part of right foot with fat layer exposed; I87.2 Venous insufficiency (chronic) (peripheral); M20.41 Other hammer toe(s) (acquired), right foot | CPT/HCPCS: 11042; 87070; 87075; 87077; 87205 ==

== ENCOUNTER → 2018-11-29 | Outpatient (CLI) | payer BC | LOC: WOUNDCARE 08:11 | PROVIDERS: ATTEND Surgery | DX: E11.621 Type 2 diabetes mellitus with foot ulcer (principal); L97.512 Non-pressure chronic ulcer of other part of right foot with fat layer exposed; I87.2 Venous insufficiency (chronic) (peripheral); M20.41 Other hammer toe(s) (acquired), right foot | CPT/HCPCS: 11042 ==

== ENCOUNTER → 2018-12-06 | Outpatient (CLI) | payer BC | LOC: WOUNDCARE 08:34 | PROVIDERS: ATTEND Surgery | DX: E11.621 Type 2 diabetes mellitus with foot ulcer (principal); L97.512 Non-pressure chronic ulcer of other part of right foot with fat layer exposed; I87.2 Venous insufficiency (chronic) (peripheral); M20.41 Other hammer toe(s) (acquired), right foot | CPT/HCPCS: 11042 ==

== ENCOUNTER → 2018-12-08 | Outpatient (CLI) | payer BC | LOC: LAB 08:27 | PROVIDERS: ATTEND Surgery | DX: E11.621 Type 2 diabetes mellitus with foot ulcer (principal); I87.2 Venous insufficiency (chronic) (peripheral); M20.41 Other hammer toe(s) (acquired), right foot; L97.512 Non-pressure chronic ulcer of other part of right foot with fat layer exposed | CPT/HCPCS: 36415; 83036 ==

== ENCOUNTER → 2018-12-08 | Outpatient (CLI) | payer BC | LOC: WOUNDCARE 08:41 | PROVIDERS: ATTEND Surgery | DX: E11.621 Type 2 diabetes mellitus with foot ulcer (principal); I87.2 Venous insufficiency (chronic) (peripheral); M20.41 Other hammer toe(s) (acquired), right foot; L97.512 Non-pressure chronic ulcer of other part of right foot with fat layer exposed | CPT/HCPCS: 29445 ==

== ENCOUNTER → 2018-12-13 | Outpatient (CLI) | payer BC | LOC: WOUNDCARE 08:19 | PROVIDERS: ATTEND Surgery | DX: E11.621 Type 2 diabetes mellitus with foot ulcer (principal); L97.512 Non-pressure chronic ulcer of other part of right foot with fat layer exposed; I87.2 Venous insufficiency (chronic) (peripheral); M20.41 Other hammer toe(s) (acquired), right foot | CPT/HCPCS: 11042; 87070; 87075; 87077; 87205 ==

== ENCOUNTER → 2018-12-20 | Outpatient (CLI) | payer BC | LOC: WOUNDCARE 08:12 | PROVIDERS: ATTEND Surgery | DX: E11.621 Type 2 diabetes mellitus with foot ulcer (principal); L97.512 Non-pressure chronic ulcer of other part of right foot with fat layer exposed; M20.41 Other hammer toe(s) (acquired), right foot | CPT/HCPCS: 11042 ==

== ENCOUNTER → 2018-12-27 | Outpatient (CLI) | payer BC | LOC: WOUNDCARE 08:18 | PROVIDERS: ATTEND Surgery | DX: E11.621 Type 2 diabetes mellitus with foot ulcer (principal); L97.512 Non-pressure chronic ulcer of other part of right foot with fat layer exposed; M20.41 Other hammer toe(s) (acquired), right foot | CPT/HCPCS: 11042 ==

== ENCOUNTER → 2019-01-03 | Outpatient (CLI) | payer BC | LOC: WOUNDCARE 08:18 | PROVIDERS: ATTEND Surgery | DX: E11.621 Type 2 diabetes mellitus with foot ulcer (principal); L97.512 Non-pressure chronic ulcer of other part of right foot with fat layer exposed; M20.41 Other hammer toe(s) (acquired), right foot | CPT/HCPCS: 11042 ==

== ENCOUNTER → 2019-01-10 | Outpatient (CLI) | payer BC | LOC: WOUNDCARE 08:15 | PROVIDERS: ATTEND Surgery | DX: E11.621 Type 2 diabetes mellitus with foot ulcer (principal); L97.512 Non-pressure chronic ulcer of other part of right foot with fat layer exposed; M20.41 Other hammer toe(s) (acquired), right foot | CPT/HCPCS: 29445 ==

== ENCOUNTER → 2019-01-17 | Outpatient (CLI) | payer BC | LOC: WOUNDCARE 08:17 | PROVIDERS: ATTEND Surgery | DX: E11.621 Type 2 diabetes mellitus with foot ulcer (principal); L97.512 Non-pressure chronic ulcer of other part of right foot with fat layer exposed; M20.41 Other hammer toe(s) (acquired), right foot | CPT/HCPCS: 99212 ==

== ENCOUNTER → 2019-07-10 | Outpatient (CLI) | payer BC ==
[~2019-07-10] MED LIST changes: -DULO30CA48 PO; +DULO30CA49 PO
--- NOTE | 2019-07-10 16:26 | Diagnostic Imaging Report ---
PROCEDURE: MRI left upper extremity without contrast. TECHNIQUE: Multiplanar, multisequence non contrast-enhanced MRI of the left upper extremity was accomplished. INDICATION: Left shoulder pain. COMPARISON: No prior studies are available for comparison. FINDINGS: The biceps tendon is in a normal location within the bicipital groove. The subscapularis tendon of the rotator cuff appears intact. The supraspinatus and infraspinatus tendons of the rotator cuff are intact. No tear or retraction is seen. Minimal intermediate signal within the supraspinatus tendon is noted consistent with tendinosis. No fluid is identified within the subacromial-subdeltoid bursa. There are hypertrophic degenerative changes of the acromioclavicular joint with spurring along the inferior surface. The labrum is difficult to evaluate without intra-articular contrast. IMPRESSION: Findings suggestive of mild rotator cuff tendinosis and AC joint arthropathy. No rotator cuff tear or retraction is identified. Dictated by: Dictated on workstation # [id number]
== END ==
LOC: RAD 15:16
PROVIDERS: ATTEND Nurse Practitioner Family
DX: M12.812 Other specific arthropathies, not elsewhere classified, left shoulder (principal)
CPT/HCPCS: 73221

== ENCOUNTER → 2019-09-03 | Outpatient (CLI) | payer BC ==
[2019-09-03 14:04] LABS: BASOPHILS # (AUTO) 0.1 10^3/uL (0.0-0.1); BASOPHILS % (AUTO) 1 % (0-10); EOSINOPHILS # (AUTO) 0.1 10^3/uL (0.0-0.3); EOSINOPHILS % (AUTO) 1 % (0-10); HEMATOCRIT 42 % (35-52); HEMOGLOBIN 14.2 G/DL (11.5-16.0); LYMPHOCYTES # (AUTO) 2.9 X 10^3 (1.0-4.0); LYMPHOCYTES % (AUTO) 29 % (12-44); MEAN CORPUSCULAR HEMOGLOBIN 29 PG (25-34); MEAN CORPUSCULAR HGB CONC 34 G/DL (32-36); MEAN CORPUSCULAR VOLUME 85 FL (80-99); MEAN PLATELET VOLUME 9.7 FL (7.4-10.4); MONOCYTES # (AUTO) 0.7 X 10^3 (0.0-1.0); MONOCYTES % (AUTO) 7 % (0-12); NEUTROPHILS # (AUTO) 6.4 X 10^3 (1.8-7.8); NEUTROPHILS % (AUTO) 63 % (42-75); PLATELET COUNT 323 10^3/uL (130-400); RED CELL DISTRIBUTION WIDTH 13.1 % (10.0-14.5); WHITE BLOOD COUNT 10.1 10^3/uL (4.3-11.0)
[2019-09-03 14:16] LABS: BILIRUBIN,URINE NEGATIVE (NEGATIVE); CLARITY,URINE CLEAR; COLOR,URINE YELLOW; GLUCOSE, URINE (UA) NEGATIVE (NEGATIVE); KETONES,URINE NEGATIVE (NEGATIVE); LEUKOCYTE ESTERASE ,URINE NEGATIVE (NEGATIVE); NITRITE,URINE NEGATIVE (NEGATIVE); PH,URINE 6 (5-9); PROTEIN,URINE 1+ (NEGATIVE); UROBILINOGEN,URINE NORMAL (NORMAL)
[2019-09-03 14:35] LABS: BACTERIA,URINE MODERATE /HPF; WBC,URINE 0-2 /HPF
[2019-09-03 14:37] LABS: ALANINE AMINOTRANSFERASE 28 U/L (0-55); ALBUMIN 3.6 GM/DL (3.2-4.5); ALKALINE PHOSPHATASE 173 U/L (40-136); BUN/CREATININE RATIO 12; CALCIUM 9.1 MG/DL (8.5-10.1); CARBON DIOXIDE 27 MMOL/L (21-32); CHLORIDE 101 MMOL/L (98-107); CHOLESTEROL 156 MG/DL (< 200); CREATININE SERUM 0.84 MG/DL (0.60-1.30); ERYTHROCYTE SEDIMENTATION RATE 42 MM/HR (0-30); GFR ESTIMATED > 60; GLUCOSE 248 MG/DL (70-105); HDL CHOLESTEROL 56 MG/DL (40-60); MAGNESIUM 1.8 MG/DL (1.6-2.4); POTASSIUM 4.1 MMOL/L (3.6-5.0); SODIUM 136 MMOL/L (135-145); TOTAL PROTEIN 7.8 GM/DL (6.4-8.2); TRIGLYCERIDES 72 MG/DL (<150); URIC ACID 5.2 MG/DL (2.6-7.2); VLDL CHOLESTEROL 14 MG/DL (5-40)
[2019-09-03 14:59] LABS: FREE T4 (FREE THYROXINE) 0.98 NG/DL (0.70-1.48)
== END ==
LOC: LAB 13:39
PROVIDERS: ATTEND Internal Medicine
DX: E55.9 Vitamin D deficiency, unspecified (principal); E53.9 Vitamin B deficiency, unspecified; E61.2 Magnesium deficiency
CPT/HCPCS: 36415; 80053; 80061; 81000; 82043; 82306; 82308; 82607; 83036; 83735; 84439; 84443; 84550; 85025; 85652; 86141

== ENCOUNTER → 2019-12-11 | Outpatient (CLI) | payer BC ==
[2019-12-11 07:47] LABS: BASOPHILS % (AUTO) 0 % (0-10); EOSINOPHILS # (AUTO) 0.2 10^3/uL (0.0-0.3); EOSINOPHILS % (AUTO) 2 % (0-10); HEMATOCRIT 39 % (35-52); HEMOGLOBIN 12.9 G/DL (11.5-16.0); LYMPHOCYTES # (AUTO) 3.5 X 10^3 (1.0-4.0); LYMPHOCYTES % (AUTO) 34 % (12-44); MEAN CORPUSCULAR HEMOGLOBIN 29 PG (25-34); MEAN CORPUSCULAR HGB CONC 33 G/DL (32-36); MEAN CORPUSCULAR VOLUME 86 FL (80-99); MONOCYTES # (AUTO) 0.7 X 10^3 (0.0-1.0); MONOCYTES % (AUTO) 7 % (0-12); NEUTROPHILS % (AUTO) 57 % (42-75); PLATELET COUNT 319 10^3/uL (130-400); RED CELL DISTRIBUTION WIDTH 13.3 % (10.0-14.5); WHITE BLOOD COUNT 10.5 10^3/uL (4.3-11.0)
[2019-12-11 08:13] LABS: ALANINE AMINOTRANSFERASE 14 U/L (0-55); ALBUMIN 3.4 GM/DL (3.2-4.5); ALKALINE PHOSPHATASE 159 U/L (40-136); BILIRUBIN,TOTAL 0.8 MG/DL (0.1-1.0); BUN/CREATININE RATIO 11; CALCIUM 8.9 MG/DL (8.5-10.1); CARBON DIOXIDE 27 MMOL/L (21-32); CHLORIDE 101 MMOL/L (98-107); CHOLESTEROL 169 MG/DL (< 200); CREATININE SERUM 0.81 MG/DL (0.60-1.30); GFR ESTIMATED > 60; GLUCOSE 194 MG/DL (70-105); HDL CHOLESTEROL 49 MG/DL (40-60); POTASSIUM 3.8 MMOL/L (3.6-5.0); SODIUM 137 MMOL/L (135-145); TOTAL PROTEIN 7.2 GM/DL (6.4-8.2); TRIGLYCERIDES 94 MG/DL (<150); VLDL CHOLESTEROL 19 MG/DL (5-40)
== END ==
LOC: LAB 07:28
PROVIDERS: ATTEND Nurse Practitioner Family
DX: E11.65 Type 2 diabetes mellitus with hyperglycemia (principal); E11.621 Type 2 diabetes mellitus with foot ulcer; M79.7 Fibromyalgia; L97.509 Non-pressure chronic ulcer of other part of unspecified foot with unspecified severity
CPT/HCPCS: 36415; 80053; 80061; 82043; 82607; 83036; 84681; 85025

== ENCOUNTER 2020-03-14 10:09 | Inpatient (IN) | payer BC ==
[2020-03-14] VITALS (11 sets, daily range): BP systolic 99–146; BP diastolic 63–106
[~2020-03-14] VITALS: Ht 172.7 cm; Wt 77.1 kg
[2020-03-14 10:36] LABS: BASOPHILS # (AUTO) 0.1 10^3/uL (0.0-0.1); BASOPHILS % (AUTO) 0 % (0-10); EOSINOPHILS # (AUTO) 0.2 10^3/uL (0.0-0.3); EOSINOPHILS % (AUTO) 1 % (0-10); HEMATOCRIT 36 % (35-52); HEMOGLOBIN 12.3 G/DL (11.5-16.0); LYMPHOCYTES # (AUTO) 2.1 X 10^3 (1.0-4.0); LYMPHOCYTES % (AUTO) 11 % (12-44); MEAN CORPUSCULAR HEMOGLOBIN 27 PG (25-34); MEAN CORPUSCULAR HGB CONC 34 G/DL (32-36); MEAN CORPUSCULAR VOLUME 80 FL (80-99); MEAN PLATELET VOLUME 9.5 FL (7.4-10.4); MONOCYTES # (AUTO) 1.6 X 10^3 (0.0-1.0); MONOCYTES % (AUTO) 8 % (0-12); NEUTROPHILS # (AUTO) 15.8 X 10^3 (1.8-7.8); NEUTROPHILS % (AUTO) 80 % (42-75); PLATELET COUNT 404 10^3/uL (130-400); RED CELL DISTRIBUTION WIDTH 13.4 % (10.0-14.5); WHITE BLOOD COUNT 19.8 10^3/uL (4.3-11.0)
[2020-03-14] MEDS ORDERED: PIPERACILLIN SODIUM/TAZOBACTAM 4.5 GM in NS (IVPB) 100 ML IV ONE (10:45)
[2020-03-14] MEDS ORDERED: VANCOMYCIN INJECTION 1,000 MG in NS (IVPB) 250 ML IV SCH (10:45)
--- NOTE | 2020-03-14 10:48 | ED Lower Extremity ---
General Chief Complaint: Lower Extremity Stated Complaint: FOOT ULCER;FEVER Nursing Triage Note: ARRIVED VIA WC TO ROOM 07. WAS SEEN BY THE DR LIN AND DEEMED SEPTIC WITH A DIDABETIC ULCER FOOT AND HIGH BLOOD SUGAR. PT STATES SHE FEELS SOA ET PULSE OX 100%. Nursing Sepsis Screen: No Definite Risk Source: patient History of Present Illness Date Seen by Provider: Mar 14, 2020 Time Seen by Provider: 10:11 Initial Comments PT ARRIVES VIA POV FROM HOME PT HAS CHRONIC DIABETIC FOOT ULCER TO RIGHT FOOT--HAS BEEN THERE FOR A FEW YEARS STATES "IT HEALS UP AND THEN IT COMES BACK" --HAS BEEN TO WOUND CARE, AND PODIATRISTS FOR THIS PROBLEM STATES IT "GOT BAD AGAIN 3 WEEKS AGO" STATES SHE ALSO HAS A NEW AREA BELOW IT, THAT HAS COME UP STATES SHE CALLED DR. TERRY, TENNIS DIRECTOR AND HE CALLED IN RX FOR KEFLEX --DID NOT SEE HER IN OFFICE HIS OFFICE IS CLOSED DUE TO COVID-19 PANDEMIC. TOOK IT FROM 02/21-03/03/20 --NO IMPROVEMENT CALLED DR. ALEJANDRE'S OFFICE AT [address], AND HAS AN APPOINTMENT ON Tuesday03/17/20 WENT TO [facility] LAST NIGHT FOR THIS PROBLEM--HAD LAB AND XRAYS DONE, AND GOT A SHOT OF ROCEPHIN, AND RX FOR AN ANTIBIOTIC WAS CALLED IN, BUT PT DID NOT PICK IT UP PT HAD TEMP OF 100.9 THERE LAST NIGHT--PT HAS BEEN UNAWARE THAT SHE HAD FEVER. WBC WAS 17,000, BLOOD GLUCOSE 462, PULSE 115 GOT XRAY REPORT BACK THIS AM, WHICH WAS READ OSTEOMYELITIS--CALLED DR. CABALLERO, WHO ADVISED PT TO GO TO ER FOR EVALUATION, PRIOR TO ADMIT. DR. CABALLERO CALLED AND DISCUSSED CASE PRIOR TO PT'S ARRIVAL. PT HAS NOT CHECKED HER BLOOD SUGAR TODAY--ACCUCHECK 505 ON ARRIVAL HERE PT STATES SHE HAS HAD REDNESS AND PAIN UP TO HER LOWER LEG STATES SHE HAS FELT SHORT OF BREATH SINCE YESTERDAY NO COUGH NO CHEST PAIN NO NAUSEA/VOMITING/DIARRHEA/ABDOMINAL PAIN NO KNOWN SICK CONTACTS OR EXPOSURE TO COVID-19. HAS NOT ATTEMPTED TO CONTACT HER PCP ABOUT THIS PROBLEM PCP: DR. BELLE Allergies and Home Medications Allergies Coded Allergies: Sulfa (Sulfonamide Antibiotics) (Verified Allergy, Mild, Hives, 03/14/20) Home Medications Cholecalciferol (Vitamin D3) 1,250 Mcg Capsule, 1,250 MCG PO TUESDAY, (Reported) Duloxetine HCl 60 Mg Capsule.dr, 60 MG PO DAILY, (Reported) Fluconazole 150 Mg Tablet, 150 MG PO TUESDAY, (Reported) Furosemide 20 Mg Tablet, 20 MG PO DAILY PRN for FLUID RETENTION, (Reported) Gabapentin 100 Mg Capsule, 300 MG PO TID PRN for PAIN-BREAKTHROUGH, (Reported) CAN TAKE 3 (100MG) CAPS UP TO THREE TIMES A DAY Hydrocodone/Acetaminophen 1 Each Tablet, 1 TAB PO Q6H PRN for PAIN-MODERATE (5- 7), (Reported) Hyoscyamine Sulfate 0.125 Mg Tab.rapdis, 0.125 MG PO Q4H PRN for CRAMPS, (Reported) Insulin Aspart 300 Units/3 Ml Solution, UNITS SC TIDPC, (Reported) USES PER SLIDING SCALE Insulin Degludec 100 Unit/1 Ml Insuln.pen, 30 UNITS SC HS, (Reported) Lisdexamfetamine Dimesylate 30 Mg Capsule, 30 MG PO DAILY, (Reported) Melatonin 5 Mg Tablet, 5 MG PO HS PRN for SLEEP, (Reported) Multivitamin 1 Each Tablet, 1 EACH PO DAILY, (Reported) Oxycodone HCl 20 Mg Tab.er.12h, 20 MG PO Q12H PRN for PAIN-SEVERE (8-10), (Reported) Patient Home Medication List Home Medication List Reviewed: Yes Review of Systems Constitutional: see HPI, fever EENTM: no symptoms reported Respiratory: see HPI; No cough; short of breath; No wheezing Cardiovascular: no symptoms reported; No chest pain, No palpitations, No syncope Gastrointestinal: no symptoms reported Genitourinary: no symptoms reported Musculoskeletal: see HPI Skin: see HPI Psychiatric/Neurological: Pre-Existing Deficit (PERIPHERAL NEUROPATHY) Past Sttflwg-Pqeldy-Brztvr Hx Past Med/Social Hx: Reviewed and Corrections made Patient Social History Alcohol Use: Denies Use Recreational Drug Use: No Smoking Status: Never a Smoker Recent Foreign Travel: No Contact w/Someone Who Travel: No Recent Infectious Disease Expo: No Immunizations Up To Date Date of Pneumonia Vaccine: Jun 12, 2015 Seasonal Allergies Seasonal Allergies: No Past Medical History Surgeries: Yes (DEBRIDEMENTS OF FOOT ULCER; COLONOSCOPY) Section, Gallbladder Respiratory: No Cardiac: No Neurological: Yes (FIBROMYALGIA) Headaches /Migraines, Neuropathy Reproductive Disorders: No 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 Physical Exam Vital Signs Vital Signs - First Documented 03/14/20 10:10 Temp 36.5 Pulse 101 Resp 16 B/P (MAP) 128/80 (96) Pulse Ox 93 O2 Delivery Room Air Capillary Refill : Less Than 3 Seconds Height, Weight, BMI Height: 5'8.00" Weight: 170lbs. oz. 77.011551sz; 35.00 BMI Method:Stated General Appearance: WD/WN, obese, other (MILDLY DYSPNEIC) HEENT: PERRL/EOMI Neck: normal inspection Cardiovascular: tachycardia Respiratory: normal breath sounds, no accessory muscle use, other (MILDLY DYSPNEIC) Gastrointestinal: normal bowel sounds, non tender, soft Back: no CVA tenderness Feet: right foot other (RIGHT FOOT WITH DRESSING SATURATED WITH BLOOD AND PURULENT MATERIAL. LARGE ULCER TO MID BALL OF FOOT, WITH PACKING IN PLACE, HAS LARGE BULGING ABSCESS TO ARCH OF FOOT. ENTIRE LOWER LEG WITH 1+ SWELLING AND ERYTHEMA. 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 II-XII nml as tested, alert, normal mood/affect, oriented x 3 Skin: normal color, warm/dry, other ( ABOVE) Progress/Results/Core Measures Results/Orders Lab Results Laboratory Tests Test 03/14/20 10:26 03/14/20 10:36 03/14/20 10:45 03/14/20 11:00 Range/Units White Blood Count 19.8 H 4.3-11.0 10^3/uL Red Blood Count 4.50 4.35-5.85 10^6/uL Hemoglobin 12.3 11.5-16.0 G/DL Hematocrit 36 35-52 % Mean Corpuscular Volume 80 80-99 FL Mean Corpuscular Hemoglobin 27 25-34 PG Mean Corpuscular Hemoglobin Concent 34 32-36 G/DL Red Cell Distribution Width 13.4 10.0-14.5 % Platelet Count 404 H 130-400 10^3/uL Mean Platelet Volume 9.5 7.4-10.4 FL Neutrophils (%) (Auto) 80 H 42-75 % Lymphocytes (%) (Auto) 11 L 12-44 % Monocytes (%) (Auto) 8 0-12 % Eosinophils (%) (Auto) 1 0-10 % Basophils (%) (Auto) 0 0-10 % Neutrophils # (Auto) 15.8 H 1.8-7.8 X 10^3 Lymphocytes # (Auto) 2.1 1.0-4.0 X 10^3 Monocytes # (Auto) 1.6 H 0.0-1.0 X 10^3 Eosinophils # (Auto) 0.2 0.0-0.3 10^3/uL Basophils # (Auto) 0.1 0.0-0.1 10^3/uL Neutrophils % (Manual) 77 % Lymphocytes % (Manual) 11 % Monocytes % (Manual) 4 % Eosinophils % (Manual) 2 % Basophils % (Manual) 0 % Band Neutrophils 6 % Blood Morphology Comment NORMAL Erythrocyte Sedimentation Rate 83 H 0-30 MM/HR Sodium Level 128 L 135-145 MMOL/L Potassium Level 2.9 L 3.6-5.0 MMOL/L Chloride Level 90 L 98-107 MMOL/L Carbon Dioxide Level 22 21-32 MMOL/L Anion Gap 16 H 5-14 MMOL/L Blood Urea Nitrogen 8 7-18 MG/DL Creatinine 1.38 H 0.60-1.30 MG/DL Estimat Glomerular Filtration Rate 40 BUN/Creatinine Ratio 6 Glucose Level 500 *H 70-105 MG/DL Glucometer 505 *H 70-110 MG/DL Calcium Level 8.9 8.5-10.1 MG/DL Corrected Calcium 9.6 8.5-10.1 MG/DL Magnesium Level 1.8 1.6-2.4 MG/DL Total Bilirubin 0.9 0.1-1.0 MG/DL Aspartate Amino Transf (AST/SGOT) 22 5-34 U/L Alanine Aminotransferase (ALT/SGPT) 17 0-55 U/L Alkaline Phosphatase 167 H 40-136 U/L Total Creatine Kinase 35 29-168 U/L Creatine Kinase MB 1.0 <6.6 NG/ML Myoglobin 121.6 H 10.0-92.0 NG/ML Troponin I < 0.028 <0.028 NG/ML C-Reactive Protein High Sensitivity 18.19 H 0.00-0.50 MG/DL B-Type Natriuretic Peptide 35.3 <100.0 PG/ML Total Protein 8.1 6.4-8.2 GM/DL Albumin 3.1 L 3.2-4.5 GM/DL Lipase < 4 L 8-78 U/L Procalcitonin 0.21 H <0.10 NG/ML TSH [place] Testing 0.57 0.35-4.94 UIU/ML Beta-Hydroxybutyrate (Chem panel) 0.08 0.00-0.27 MMOL/L Prothrombin Time 14.4 12.2-14.7 SEC INR Comment 1.1 0.8-1.4 Activated Partial Thromboplast Time 31 24-35 SEC Lactic Acid Level 3.03 *H 0.50-2.00 MMOL/L Blood Gas Puncture Site RT RAD Blood Gas Patient Temperature 36.5 Arterial Blood pH 7.52 H 7.37-7.43 Arterial Blood Partial Pressure CO2 35 35-45 MMHG Arterial Blood Partial Pressure O2 95 H 79-93 MMHG Arterial Blood HCO3 29 H 23-27 MMOL/L Arterial Blood Total CO2 30.1 21.0-31.0 MMOL/L Arterial Blood Oxygen Saturation 99 94-100 % Arterial Blood Base Excess 5.7 H -2.5-2.5 MMOL/L Manuel Test YES-POS Blood Gas Ventilator Setting NO Blood Gas Inspired Oxygen ROOM AIR Micro Results Microbiology 03/14/20 Blood Culture - Preliminary, Resulted No growth 03/14/20 Blood Culture - Preliminary, Resulted No growth My Orders Orders - MAI HOLBROOK DO Accucheck Stat ONCE (03/14/20 10:11) Ed Iv/Invasive Line Start (03/14/20 10:11) Monitor-Rhythm Ecg Trace Only (03/14/20 10:11) Chest 1 View, Ap/Pa Only (03/14/20 10:11) Arterial Blood Gas (03/14/20 10:11) BNP (03/14/20 10:11) Cbc With Automated Diff (03/14/20 10:11) Comprehensive Metabolic Panel (03/14/20 10:11) Creatine Kinase (03/14/20 10:11) Creatine Kinase Mb (03/14/20 10:11) Hs C Reactive Protein (03/14/20 10:11) Erythrocyte Sedimentation Rate (03/14/20 10:11) Lactic Acid Analyzer (03/14/20 10:11) Lipase (03/14/20 10:11) Magnesium (03/14/20 10:11) Procalcitonin (Pct) (03/14/20 10:11) Protime With Inr (03/14/20 10:11) Partial Thromboplastin Time (03/14/20 10:11) Thyroid Analyzer (03/14/20 10:11) Ua Culture If Indicated (03/14/20 10:11) Blood Culture (03/14/20 10:11) Wound Culture (03/14/20 10:11) Myoglobin Serum (03/14/20 10:11) Troponin I (03/14/20 10:11) Urine Culture (03/14/20 10:11) Ed Iv/Invasive Line Start (03/14/20 10:11) Ed Iv/Invasive Line Start (03/14/20 10:11) Ekg Tracing (03/14/20 10:11) Vital Signs Adult Sepsis Patie Q15M (03/14/20 10:11) O2 (03/14/20 10:11) Remove Rings In Anticipation O (03/14/20 10:11) Piperacillin Sodium/Tazobactam (Zosyn Vi (03/14/20 10:45) Vancomycin Injection (Vancomycin Injecti (03/14/20 10:45) Manual Differential (03/14/20 10:26) Ed Iv/Invasive Line Start (03/14/20 10:56) Ns Iv 1000 Ml (Sodium Chloride 0.9%) (03/14/20 10:56) Insulin (Regular) Human (Humulin R (Per (03/14/20 11:00) Ns W/Kcl 20 Meq/L (Ns Iv W/Kcl 20 Meq/L) (03/14/20 11:15) Vital Signs/I&O 03/14/20 10:10 Temp 36.5 Pulse 101 Resp 16 B/P (MAP) 128/80 (96) Pulse Ox 93 O2 Delivery Room Air Blood Pressure Mean: 96 FSBG Bedside Testing Finger Stick Blood Glucose: 505 Blood Glucose Action Taken: NOTIFIED Diagnostic Imaging Comments CXR--NO ACUTE PROCESS, PER RADIOLOGIST REPORT AT 1114 Reviewed: Reviewed by Me Departure Communication (Admissions) DISCUSSED WITH DR. CABALLERO, SHORTLY AFTER PT'S ARRIVAL. WILL CONTACT HER WHEN TEST RESULTS ARE BACK AND WILL PLAN ON ADMITTING TO ICU WITH INSULIN DRIP 1114--RN CONTACTING DR. CABALLERO, WITH TEST RESULTS. 1133--SPOKE WITH DR. CABALLERO, SHE ACCEPTS PT FOR ADMIT., SHE WILL WRITE ADMIT ORDERS Impression Primary Impression: CHRONIC RIGHT FOOT ULCER WITH CELLULITIS AND OSTEOMYELITIS Additional Impressions: Sepsis Hyponatremia Hypokalemia Diabetes mellitus, insulin dependent (IDDM), uncontrolled Disposition: ADMITTED INPATIENT Condition: Stable Admissions Decision to Admit Reason: Admit from ER (General) Decision to Admit/Date: Mar 14, 2020 Time/Decision to Admit Time: 11:35 Departure-Patient Inst. Referrals: MAXIMILIAN BELLE DO (PCP/Family) Primary Care Physician MAI HOLBROOK DO Mar 14, 2020 10:48
[2020-03-14 10:52] LABS: ALBUMIN 3.1 GM/DL (3.2-4.5); CHLORIDE 90 MMOL/L (98-107); POTASSIUM 2.9 MMOL/L (3.6-5.0); SODIUM 128 MMOL/L (135-145)
--- NOTE | 2020-03-14 10:52 | Diagnostic Imaging Report ---
Indication: Fever, diabetic Portable chest 10:47 AM Heart size and pulmonary vascularity are normal. Lungs are clear. There are no effusions or pneumothoraces. IMPRESSION: Negative chest Dictated by: Dictated on workstation # [id number]
[2020-03-14 10:54] LABS: CALCIUM 8.9 MG/DL (8.5-10.1)
[2020-03-14 10:55] LABS: BAND NEUTROPHILS 6 %; BASOPHILS % (MANUAL) 0 %; EOSINOPHILS % (MANUAL) 2 %; LYMPHOCYTES % (MANUAL) 11 %; MONOCYTES % (MANUAL) 4 %; NEUTROPHILS % (MANUAL) 77 %; RBC MORPH NORMAL; TOTAL PROTEIN 8.1 GM/DL (6.4-8.2)
[2020-03-14 10:56] LABS: CARBON DIOXIDE 22 MMOL/L (21-32); GLUCOSE 500 MG/DL (70-105)
[2020-03-14] MEDS ORDERED: NS IV 1000 ML 1,000 ML IV SCH ×2 (10:56→12:08)
[2020-03-14 10:57] LABS: BILIRUBIN,TOTAL 0.9 MG/DL (0.1-1.0)
[2020-03-14 10:58] LABS: ALKALINE PHOSPHATASE 167 U/L (40-136)
[2020-03-14 10:59] LABS: CREATININE SERUM 1.38 MG/DL (0.60-1.30); GFR ESTIMATED 40
[2020-03-14 11:00] LABS: BUN/CREATININE RATIO 6
[2020-03-14] MEDS ORDERED: inSUlin (REGULAR) HUMAN 1 UNIT/0.01 ML (CHARGE PER UNIT) IV ONE (11:00)
[2020-03-14 11:01] LABS: ALANINE AMINOTRANSFERASE 17 U/L (0-55); MAGNESIUM 1.8 MG/DL (1.6-2.4)
[2020-03-14 11:02] LABS: CREATINE KINASE 35 U/L (29-168); LIPASE < 4 U/L (8-78)
[2020-03-14 11:05] LABS: INR 1.1 (0.8-1.4); PROTHROMBIN TIME PATIENT 14.4 SEC (12.2-14.7)
[2020-03-14 11:13] LABS: ABG BASE EXCESS 5.7 MMOL/L (-2.5-2.5); ABG OXYGEN SATURATION 99 % (94-100); ABG PCO2 35 MMHG (35-45); ABG PH 7.52 (7.37-7.43); ABG PO2 95 MMHG (79-93); ABG TCO2 30.1 MMOL/L (21.0-31.0)
[2020-03-14 11:16] LABS: ALLENS TEST YES-POS; INSPIRED O2 ROOM AIR; PATIENT TEMP 36.5; VENTILATOR NO
[2020-03-14 11:17] LABS: ERYTHROCYTE SEDIMENTATION RATE 83 MM/HR (0-30)
[2020-03-14 11:22] LABS: TSH (THYROID ANALYZER) 0.57 UIU/ML (0.35-4.94)
[2020-03-14] MEDS: NS W/KCL 20 MEQ/L 1,000 ML IV SCH ×2 (12:11→21:09)
[2020-03-14] MEDS ORDERED: POTASSIUM CL 10MEQ/50ML IVPB 50 ML IV SCH (12:15)
[2020-03-14] MEDS ORDERED: VANCOMYCIN INJECTION 0.1 MG in NS (IVPB) 250 ML IV SCH (12:15)
[2020-03-14] MEDS ORDERED: D5 1/2 NS 1000 ML IV SOLUTION 1,000 ML IV SCH (12:15)
--- NOTE | 2020-03-14 12:27 | History & Physical-Hospitalist ---
History of Present Illness HPI/Chief Complaint Pt is a 54yoCF with a PMH of IDDMII, fibromylagia, chronic foot wounds presented to the ER due to fever and oozing foot wound. She was seen in an urgent care last night and was febrile, tachycardiac, and had a leukocytosis. She was given Rocephin last night and sent Doxycycline but was not able to get it from the pharmacy before they closed. This morning her X-ray from the urgent care was read as osteomyelitis and she was sent to the ER for evaluation. She reports she has had chronic foot ulcers for [address] Malloy, Dr Roth, and [facility] for this in the past. She was scheduled to see Dr Tineo on 03/17. She has a chronic ulcer on the planter aspect of her foot that is regularly packed but states that it as tracked and spread to the bottom of her foot with a large area of swelling and redness. She reports severe pain that started two days ago as well as shortness of breath. Her blood sugars have been high. Normally they run around 180 and her A1c is 8 but she has been in the 400s yesterday and today. 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 Patients Allergies have been reviewed. Allergies Allergies Coded Allergies Sulfa (Sulfonamide Antibiotics) (Verified Allergy, Mild, Hives, 03/14/20) Past Pxuprcg-Velkod-Luukkv Hx Past Med/Social Hx: Reviewed Nursing Past Med/Soc Hx, Reviewed and Corrections made Patient Social History Alcohol Use: Denies Use Recreational Drug Use: No Smoking Status: Never a Smoker Recent Foreign Travel: No Contact w/other who traveled: No Recent Infectious Disease Expo: No Immunizations Up To Date Date of Pneumonia Vaccine: Jun 12, 2015 Seasonal Allergies Seasonal Allergies: No Past Medical History Surgeries: Breast (reduction), Section, Gallbladder Neurological: Headaches /Migraines, Neuropathy Reproductive: No Sexually Transmitted Disease: No HIV/AIDS: No Menopausal Gastrointestinal: Diverticulosis, Chronic Diarrhea Musculoskeletal: Fibromyalgia, Fractures Endocrine: Diabetes, Insulin dep History of Blood Disorders: No Family History Reviewed Nursing Family Hx Patient reports no known family medical history. Review of Systems Constitutional: No chills; fever, malaise EENTM: no symptoms reported Respiratory: No cough; dyspnea on exertion, short of breath Cardiovascular: No chest pain, No palpitations Gastrointestinal: No abdominal pain, No nausea, No vomiting Genitourinary: No decreased output, No dysuria Musculoskeletal: no symptoms reported Skin: see HPI Physical Exam Physical Exam Vital Signs Vital Signs - First Documented 03/14/20 10:10 Temp 36.5 Pulse 101 Resp 16 B/P (MAP) 128/80 (96) Pulse Ox 93 O2 Delivery Room Air Capillary Refill : Less Than 3 Seconds Height, Weight, BMI Height: 5'8.00" Weight: 170lbs. oz. 77.889750sc; 35.00 BMI Method:Stated General Appearance: No Apparent Distress, WD/WN HEENT: Moist Mucous Membranes; No Scleral Icterus (L), No Scleral Icterus (R) Neck: Normal Inspection, Supple; No Thyromegaly Respiratory: Lungs Clear, No Accessory Muscle Use, No Respiratory Distress Cardiovascular: No Murmur, Normal Peripheral Pulses, Tachycardia Gastrointestinal: Normal Bowel Sounds, Non Tender, Soft Extremity: Pedal Edema, Other (right pedal edema, open ulcer at the base of the 3rd metatarsal with gauze covering and track to the arch of the foot with fluctuant area, erythema and warmth noted) Neurologic/Psychiatric: Alert, Oriented x3 Results Results/Procedures Labs Laboratory Tests 03/14/20 10:26 03/14/20 12:45 03/14/20 20:27 03/15/20 03:20 03/15/20 12:19 Patient resulted labs reviewed. Assessment/Plan Admission Diagnosis Sepsis DKA Admission Status: Inpatient Order (span 2 midnights) Reason for Inpatient Admission: insulin gtt, osteomyelitis, needs IV abx and possible amputation Assessment and Plan Severe Sepsis Diabetic Foot Wound leukocytosis and tachycardia, febrile yesterday at urgent care Lactic 3.03, trend Continue Vanc and Zosyn Cultures pending I discussed with Dr Preston who will see in consultation MRI ordered ?DKA Hypokalemia pseudohyponatremia Insulin gtt Last A1c 9.1 in November, will recheck Monitor electrolytes and replace per protocols Continue IVF resuscitation TRUNG Baseline Creatine 0.8 in Gloria 1.38 today Continue IVF Fibromyalgia Continue home meds Diagnosis/Problems Diagnosis/Problems (1) Fibromyalgia (2) Diabetic foot ulcer (3) Sepsis Status: Acute (4) DKA (diabetic ketoacidoses) Status: Acute (5) Diabetes mellitus, insulin dependent (IDDM), uncontrolled Status: Acute (6) Chronic pain Status: Acute BERT SEGUNDO MD Mar 14, 2020 12:27
[2020-03-14] MEDS ORDERED: VANCOMYCIN INJECTION 2,000 MG in NS IV 500 ML 500 ML IV ONE (12:45)
--- NOTE | 2020-03-14 12:45 | NUR ---
RENATA DAVILA admitted to room CU7-1, with an admitting diagnosis of DKA, SEPSIS, on 03/14/20 from ER via WC, accompanied by STAFF.RENATA DAVILA Christian introduced to surroundings, call light, bed controls, phone, TV, temperature control, lights, meal times, smoking policy, visitor policy, side rail policy, bathrooms and showers. Patient Rights given to patient in the handbook. RENATA DAVILA verbalizes understanding that [facility] is not responsible for the loss or damage to any personal effects or valuables that are kept in the patients posession during their hospitalization. The following Patient Care Plans were discussed with the PT: Discharge Planning, PAIN,INFECTION, and KNOWLEDGE DEFICIT DM. RENATA DAVILA Christian verbalizes understanding of Interdisciplinary Patient Education. Patient and family were informed about the Rapid Response Team and its purpose.
--- NOTE | 2020-03-14 12:53 | NUR ---
fsbs quickly dropped from 500s in er to 100's upon admit. d50 taken w/ pt to mri in event of hypoglycemia.
[2020-03-14] MEDS ORDERED: DEXTROSE 50% 50 ML (IMS) SYR ONE (12:56)
[2020-03-14 13:09] LABS: CALCIUM 8.7 MG/DL (8.5-10.1)
[2020-03-14 13:13] LABS: CREATININE SERUM 1.11 MG/DL (0.60-1.30); POTASSIUM 2.3 MMOL/L (3.6-5.0)
--- NOTE | 2020-03-14 13:15 | NUR ---
pt off floor w/ this rn to mri.
--- NOTE | 2020-03-14 13:58 | NUR ---
back to floor from mri.
--- NOTE | 2020-03-14 14:00 | NUR ---
dr otoole here to see pt.
--- NOTE | 2020-03-14 14:14 | Diagnostic Imaging Report ---
PROCEDURE: MRI right lower extremity without contrast. TECHNIQUE: Multiplanar, multisequence non contrast-enhanced MRI of the right lower extremity was accomplished. INDICATION: Right foot ulcer in the region of the 3rd toe. Patient is somewhat compromised due to patient motion. There is low signal intensity on T1-weighted sequences in the region of the distal 3rd metatarsal as well as the proximal phalanx of the 3rd toe. These areas demonstrate increased signal on inversion recovery sequences. There is significant surrounding soft tissue swelling and soft tissue edema. The abnormal extraosseous soft tissue is noted both along the dorsum and plantar aspect of the distal 3rd metatarsal and proximal phalanx 3rd toe. No well-formed fluid collection is seen to suggest abscess formation. Remaining metatarsals and phalanges are unremarkable. IMPRESSION: Abnormal marrow signal intensity and apparent osseous destructive changes involving the distal 3rd metatarsal as well as the proximal phalanx of the 3rd toe. There is also significant surrounding soft tissue edema and thickening. Features are concerning for an infectious/inflammatory process such as osteomyelitis. No superficial or deep soft tissue fluid collection or abscess is identified. Dictated by: Dictated on workstation # [id number]
--- NOTE | 2020-03-14 14:19 | Podiatry Progress Note ---
Standard Progress Note Progress Notes/Assess & Plan Date Seen by a Provider: Mar 14, 2020 Time Seen by a Provider: 14:16 Progress/Assessment & Plan Consult dictated. Will likely go to surgery tomorrow morning. NPO after midnight. Awaiting results of MRI. Xrays ordered for bilateral foot. Final Diagnosis Osteomyelitis right foot, Deep Abscess, Diabetic Neuropathy, BELKIS DUMONT DPTati Mar 14, 2020 14:19
[2020-03-14] MEDS: 1/2 NS IV SOLUTION 1,000 ML IV SCH ×3 (14:21→19:26)
[2020-03-14] MEDS: inSUlin REGULAR TPN/DRIP ONLY 250 UNITS in NORMAL SALINE 250 ML IV SCH (14:21)
--- NOTE | 2020-03-14 14:22 | NUR ---
prior to starting insulin gtt/ivf pts fsbs 105. dr teresa informed. new orders received to dc inulin gtt, give 40meq potassium iv, recheck bmp after potassium infused, ada diet, and npo after midnight.
--- NOTE | 2020-03-14 14:25 | NUR ---
VANCOMYCIN TROUGH DUE 03/16 @ 99, IF TROUGH >20, HOLD DOSE AND CONTACT PHARMACY FOR ADJUSTMENT. Addendum: 03/14/20 at 1436 by JOSLYN LUNDBERG [facility] TO DOSE VANCOMYCIN; RECEIVED 2G LOADING DOSE STARTED 03/14 @ ~1400 PATIENT WAS BEING MOVED FROM ED TO ICU, MAINTENANCE DOSE 15MG/KG X 102KG ~ 1500MG Q12H (SCr 1.11, CrCl 57.8), CHOSE MORE AGGRESSIVE Q12H DOSING FREQUENCY SINCE ICU PATIENT, WILL CLOSELY MONITOR RENAL FUNCTION OVER WEEKEND AND ADJUST IF NECESSARY. VANCOMYCIN TROUGH DUE 03/16 @ 99, IF TROUGH >20, HOLD DOSE AND NOTIFY PHARMACY FOR ADJUSTMENTS.
[2020-03-14] MEDS: POTASSIUM CL 10MEQ/50ML IVPB 50 ML IV SCH ×10 (14:28→23:53)
[2020-03-14] MEDS ORDERED: INSU100I14 SC (14:45)
[2020-03-14] MEDS ORDERED: INSU100I32 SC (14:45)
[2020-03-14] MEDS ORDERED: DULO60CA59 PO (14:45)
[2020-03-14] MEDS ORDERED: HYDR-3820 PO (14:45)
[2020-03-14] MEDS ORDERED: FURO20TA4 PO (14:45)
[2020-03-14] MEDS ORDERED: OXYC20TA54 PO (14:45)
[2020-03-14] MEDS ORDERED: GABA-486 PO (14:45)
[2020-03-14] MEDS ORDERED: CHOL50005 PO (14:45)
[2020-03-14] MEDS ORDERED: FLUC150T2 PO (14:45)
[2020-03-14] MEDS ORDERED: LISD30CA3 PO (14:45)
[2020-03-14] MEDS ORDERED: HYOS-6 PO (14:45)
[2020-03-14] MEDS ORDERED: MELA5TAB14 PO (14:52)
[2020-03-14] MEDS ORDERED: MULT-1136 PO (14:52)
--- NOTE | 2020-03-14 14:53 | NUR ---
SPOKE WITH THE PT AND WENT THRU THE EXT MED HISTORY TO COMPLETE THE MED REC THE PT HAS A MED LIST WRITTEN ON A STICKY NOTE-HOWEVER THIS ONLY HAD A FEW OF HER MEDICATIONS ON IT, WE WENT OVER THE EXT MED HISTORY AND SHE WAS ABLE TO TELL ME HOW/WHEN SHE TAKES EACH MEDICATION. GABAPENTIN 100MG- THE PATIENT CAN TAKE BETWEEN 1 TO 3 CAPS UP TO TID PT IS NO LONGER TAKING METFORMIN OTC MEDS: HENRY BRANCH
--- NOTE | 2020-03-14 15:14 | CONSULTATION REPORT ---
DATE OF SERVICE: 03/14/2020 REASON FOR CONSULTATION: Osteomyelitis, right foot. HISTORY OF PRESENT ILLNESS: This 54-year-old was admitted through the ER secondary to the chronic ulceration of the right foot. She has had an ulceration off and on for the last two years. She was seen by wound care and treated with a total contact cast, which would heal the wound and she went on to a calcaneal fracture. Apparently was seen by ortho then the ulcer came back and this has been revolving problem for her. She has had several rounds of antibiotics. She reports she has had a blister on the left foot as well recently, but it is only "a small one." She reports high blood sugars. PAST MEDICAL HISTORY: Insulin-dependent diabetes, fibromyalgia, calcaneal fracture on the right, diverticulosis, chronic diarrhea, headache, migraines, neuropathy. PAST SURGICAL HISTORY: Include a breast reduction, section and gallbladder surgery. ALLERGIES: She is allergic to SULFA. SOCIAL HISTORY: The patient denies alcohol or illicit drug use. Never smoker. PHYSICAL EXAMINATION: LOWER EXTREMITY: The patient has palpable pedal pulses bilaterally. Cap refill time is less than 3 seconds to the hallux bilaterally. NEUROLOGIC: The patient has diminished light touch sensation to the plantar aspect of the foot bilaterally. DERMATOLOGIC: The patient has a full thickness wound down to deep tissue, plantar aspect of the right third metatarsal head area that measures approximately 2 x 1.5 cm. There is a fluctuance into the mid arch proximal to the original ulceration that measures another 2.5 cm in diameter. When palpated some purulence extrudes from the original third metatarsal area ulceration. The patient also has a full thickness wound that is approximately 4 mm in depth to the plantar aspect of the left first metatarsal head area. ASSESSMENT: 1. Osteomyelitis, right foot. 2. Diabetic neuropathy. 3. Full-thickness ulceration bilaterally. Of course, cellulitis of the right foot with deep abscess. PLAN: Various treatment options were discussed with the patient today. We are awaiting the results of the recently performed MRI of the right lower extremity. Ordered an x-ray of bilateral lower extremities for future reference as well as evaluation of the left first metatarsal head. She is to be stabilized medically before surgical intervention can be performed. She will need incision and drainage procedure in the relatively near future. Anticipate performing an incision and drainage in the morning. In the meantime, she is to be nonweightbearing bilaterally. Continue with IV antibiotics. Job ID: [id number] DocumentID: [id number] Dictated Date: 03/14/2020 14:25:16 Diagnostic Imaging Manager Date: 03/14/2020 15:13:31 Dictated By: BELKIS DUMONT DPM
--- NOTE | 2020-03-14 15:35 | Diagnostic Imaging Report ---
INDICATION: Chronic ulceration of bilateral feet. TIME OF EXAM: 3:07 p.m. FINDINGS: Right foot demonstrates lucency and cortical erosive changes of the distal 3rd metatarsal with some associated periosteal reaction. There also appears to be some erosive changes involving the proximal aspect of the proximal phalanx 3rd toe. These finding are suspicious for osteomyelitis. There is some gas along the plantar soft tissues on the lateral view at the level of the midshaft metatarsals. Left foot demonstrates the metatarsals and phalanges to be intact. No definite bony destructive change is seen. No soft tissue gas is identified apart from probable small ulcer along the plantar aspect at the level of the distal metatarsals. There appears to be some chronic changes of the distal 1st metatarsal on the left. No fracture is seen. IMPRESSION: Chronic bony changes of left 1st metatarsal with probable small plantar ulcer. There is also destructive changes of the distal 3rd metatarsal and proximal phalanx 3rd toe suggestive of acute osteomyelitis. Dictated by: Dictated on workstation # [id number]
[2020-03-14 16:19] LABS: BILIRUBIN,URINE NEGATIVE (NEGATIVE); CLARITY,URINE SL CLOUDY; COLOR,URINE YELLOW; GLUCOSE, URINE (UA) 3+ (NEGATIVE); KETONES,URINE NEGATIVE (NEGATIVE); LEUKOCYTE ESTERASE ,URINE NEGATIVE (NEGATIVE); NITRITE,URINE NEGATIVE (NEGATIVE); PH,URINE 6.5 (5-9); PROTEIN,URINE TRACE (NEGATIVE)
[2020-03-14] MEDS ORDERED: CHOLECALCIFEROL 1250 MCG PO SCH (16:30)
[2020-03-14] MEDS ORDERED: MELATONIN 10 MG TABLET PO PRN (16:30)
[2020-03-14] MEDS ORDERED: NON-FORMULARY MEDICATION 1 EA EA (Hyoscyamine Sulfate 0.125 MG) PO PRN (16:30)
[2020-03-14] MEDS ORDERED: HYOSCYAMINE 0.125 MG (LEVSIN) TAB PO PRN (16:30)
[2020-03-14] MEDS ORDERED: NON-FORMULARY MEDICATION 1 EA EA (Melatonin 5 MG) PO PRN (16:30)
[2020-03-14] MEDS ORDERED: ONDANSETRON 4 MG/2 ML (SDV) Z0FRAN IVP PRN (16:45)
[2020-03-14] MEDS: LOPERAMIDE 2 MG (IMODIUM) TABLET PO PRN (16:55)
[2020-03-14] MEDS: SILVER SULFADIAZINE 50 GM CREAM TOP SCH (16:58)
[2020-03-14] MEDS: DAKIN'S FULL STRENGTH (0.5%) 480 ML BTL TOP SCH (16:58)
[2020-03-14 16:59] LABS: AMORPHOUS SEDIMENT,UR FEW AMOR URATES /LPF; BACTERIA,URINE MODERATE /HPF
[2020-03-14] MEDS: PIPERACILLIN/TAZOBACTAM (BULK) 4.5 GM in NS (IVPB) 100 ML IV SCH (17:30)
--- NOTE | 2020-03-14 17:33 | NUR ---
dressing to bilat feet applied per dr orders.
[2020-03-14] MEDS: inSUlin ASPART (NovoLOG) 1 UNIT/0.01 ML (CHARGE PER UNIT) SC SCH (20:03)
[2020-03-14 20:43] LABS: POTASSIUM 2.6 MMOL/L (3.6-5.0)
[2020-03-14 20:44] LABS: CALCIUM 7.7 MG/DL (8.5-10.1)
[2020-03-14 20:49] LABS: CREATININE SERUM 1.24 MG/DL (0.60-1.30)
[2020-03-14] MEDS ORDERED: INSULIN DEGLUDEC 30 UNIT SC SCH (21:00)
[2020-03-14] MEDS: HYDROcodone/APAP 10 MG/325 MG (LORTAB) TAB PO PRN (22:38)
[2020-03-15] VITALS (17 sets, daily range): BP systolic 92–149; BP diastolic 54–83
[2020-03-15] MEDS: 1/2 NS IV SOLUTION 1,000 ML IV SCH ×4 (00:32→12:11)
[2020-03-15] MEDS: POTASSIUM CL 10MEQ/50ML IVPB 50 ML IV SCH ×7 (00:51→09:22)
[2020-03-15] MEDS: PIPERACILLIN/TAZOBACTAM (BULK) 4.5 GM in NS (IVPB) 100 ML IV SCH ×3 (01:07→18:33)
[2020-03-15] MEDS: VANCOMYCIN 1500 MG/NS 500 ML IVPB IV SCH ×4 (01:07→15:02)
[2020-03-15 03:40] LABS: BASOPHILS # (AUTO) 0.1 10^3/uL (0.0-0.1); BASOPHILS % (AUTO) 0 % (0-10); EOSINOPHILS # (AUTO) 0.4 10^3/uL (0.0-0.3); EOSINOPHILS % (AUTO) 3 % (0-10); HEMATOCRIT 31 % (35-52); HEMOGLOBIN 10.3 G/DL (11.5-16.0); LYMPHOCYTES # (AUTO) 2.8 X 10^3 (1.0-4.0); LYMPHOCYTES % (AUTO) 20 % (12-44); MEAN CORPUSCULAR HEMOGLOBIN 27 PG (25-34); MEAN CORPUSCULAR HGB CONC 33 G/DL (32-36); MEAN CORPUSCULAR VOLUME 82 FL (80-99); MEAN PLATELET VOLUME 9.2 FL (7.4-10.4); MONOCYTES # (AUTO) 1.3 X 10^3 (0.0-1.0); MONOCYTES % (AUTO) 9 % (0-12); NEUTROPHILS # (AUTO) 9.6 X 10^3 (1.8-7.8); NEUTROPHILS % (AUTO) 68 % (42-75); PLATELET COUNT 353 10^3/uL (130-400); RED CELL DISTRIBUTION WIDTH 13.2 % (10.0-14.5); WHITE BLOOD COUNT 14.1 10^3/uL (4.3-11.0)
[2020-03-15 04:02] LABS: ALBUMIN 2.5 GM/DL (3.2-4.5); POTASSIUM 2.8 MMOL/L (3.6-5.0)
[2020-03-15 04:03] LABS: CALCIUM 7.8 MG/DL (8.5-10.1)
[2020-03-15 04:05] LABS: TOTAL PROTEIN 6.3 GM/DL (6.4-8.2)
[2020-03-15 04:06] LABS: BILIRUBIN,TOTAL 0.6 MG/DL (0.1-1.0)
[2020-03-15 04:08] LABS: CREATININE SERUM 1.19 MG/DL (0.60-1.30); PHOSPHORUS 2.5 MG/DL (2.3-4.7)
[2020-03-15 04:11] LABS: MAGNESIUM 1.9 MG/DL (1.6-2.4)
[2020-03-15] MEDS: KCL 20 MEQ TAB (K-DUR) PO SCH (04:25)
[2020-03-15] MEDS: MAGNESIUM 1 GM/100 ML IVPB 100 ML IV SCH (04:25)
[2020-03-15] MEDS: inSUlin ASPART (NovoLOG) 1 UNIT/0.01 ML (CHARGE PER UNIT) SC SCH ×4 (05:15→20:51)
[2020-03-15] MEDS: NS W/KCL 20 MEQ/L 1,000 ML IV SCH (06:27)
[2020-03-15] MEDS ORDERED: LIDOCAINE 1% INJ 20 ML 20 ML VIAL ONE (08:15)
[2020-03-15] MEDS ORDERED: BUPIVACAINE 0.5% 30 ML (SENSORCAINE) VIAL ONE (08:15)
[2020-03-15] MEDS ORDERED: NON-FORMULARY MEDICATION 1 EA EA (Duloxetine HCl 60 MG) PO SCH (09:00)
[2020-03-15] MEDS: inSUlin REGULAR TPN/DRIP ONLY 250 UNITS in NORMAL SALINE 250 ML IV SCH (09:21)
[2020-03-15] MEDS: DULoxetine 30 MG (CYMBALTA) CAP PO SCH (09:22)
[2020-03-15] MEDS ORDERED: fentaNYL INJECTION 100 MCG/2 ML AMP ONE (09:44)
[2020-03-15] MEDS ORDERED: MIDAZOLAM 2 MG/2 ML (VERSED) VIAL ONE (09:44)
[2020-03-15] MEDS ORDERED: PROPOFOL INJECTION 50 ML IV ONE ×2 (09:44→10:15)
--- NOTE | 2020-03-15 10:05 | Progress Note - Hospitalist ---
Subjective HPI/CC On Admission Date Seen by Provider: Mar 15, 2020 Time Seen by Provider: 09:00 Pt is a 54yoCF with a PMH of IDDMII, fibromylagia, chronic foot wounds presented to the ER due to fever and oozing foot wound. She was seen in an urgent care last night and was febrile, tachycardiac, and had a leukocytosis. She was given Rocephin last night and sent Doxycycline but was not able to get it from the pharmacy before they closed. This morning her X-ray from the urgent care was read as osteomyelitis and she was sent to the ER for evaluation. She reports she has had chronic foot ulcers for [address] Malloy, Dr Roth, and [facility] for this in the past. She was scheduled to see Dr Tineo on 03/17. She has a chronic ulcer on the planter aspect of her foot that is regularly packed but states that it as tracked and spread to the bottom of her foot with a large area of swelling and redness. She reports severe pain that started two days ago as well as shortness of breath. Her blood sugars have been high. Normally they run around 180 and her A1c is 8 but she has been in the 400s yesterday and today. Subjective/Events-last exam Pt reports doing well. Plan is to go to the OR today. No concerns or complaints. Focused Exam Lactate Level 03/14/20 10:45: Lactic Acid Level 3.03*H 03/14/20 12:45: Lactic Acid Level 2.13*H 03/14/20 14:45: Lactic Acid Level 0.98 Objective Exam Vital Signs Vital Signs Date Time Temp Pulse Resp B/P (MAP) Pulse Ox O2 Delivery O2 Flow Rate FiO2 03/15/20 09:00 75 19 131/78 (95) 94 Room Air 03/15/20 07:24 36.7 Capillary Refill : Less Than 3 Seconds General Appearance: No Apparent Distress, WD/WN Respiratory: Lungs Clear, No Respiratory Distress Cardiovascular: Regular Rate, Rhythm, No Murmur Extremity: Other (foot dressed in wrapping- I did not undress) Neurologic/Psychiatric: Alert, Oriented x3 Results/Procedures Lab Laboratory Tests 03/14/20 10:26 03/14/20 12:45 03/14/20 20:27 03/15/20 03:20 Patient resulted labs reviewed. Assessment/Plan Assessment and Plan Assess & Plan/Chief Complaint Severe Sepsis- improved Diabetic Foot Wound Continue Vanc and Zosyn Cultures pending MRI reveals osteomyelitis Plan for OR today with Dr Preston Poorly controlled IDDMII Hypokalemia pseudohyponatremia Never actually need insulin gtt Doing well with bolus insulin Last A1c 9.1 in November, recheck pending Monitor electrolytes and replace per protocols TRUNG Baseline Creatine 0.8 in November 21.19 Continue IVF Fibromyalgia Continue home meds Diagnosis/Problems Diagnosis/Problems (1) Fibromyalgia (2) Diabetic foot ulcer (3) Sepsis Status: Acute (4) DKA (diabetic ketoacidoses) Status: Acute (5) Diabetes mellitus, insulin dependent (IDDM), uncontrolled Status: Acute (6) Chronic pain Status: Acute Clinical Quality Measures DVT/VTE Risk/Contraindication: Risk Factor Score Per Nursin RFS Level Per Nursing on Admit: 4+=Very High Contraindications-Pharm: Other *list below* Other: SCD'S ONLY NO MED R/T SURGERY BERT CABALLERO MD Mar 15, 2020 10:05
[2020-03-15] MEDS ORDERED: PHENYLEPHRINE 100 MCG/ML 10 ML (ANESTHESIA) SYR ONE (10:14)
[2020-03-15] MEDS ORDERED: LACTATED RINGERS 1,000 ML IV PRN (10:34)
[2020-03-15] MEDS ORDERED: LACTATED RINGERS 1,000 ML IV SCH (11:01)
--- NOTE | 2020-03-15 11:01 | Progress Note-Post Operative ---
Post-Operative Progess Note Surgeon (s)/Audio Director (s) Surgeon BELKIS DUMONT DPM Audio Director: none Pre-Operative Diagnosis Osteomyelitis right 3rd metatarsal and 3rd toe Post-Operative Diagnosis Same with deep abscess Procedure & Operative Findings Date of Procedure 03/15/20 Procedure Performed/Findings Amputation of the right 3rd metatarsal and 3rd toe. Incision and Drainage of right foot Anesthesia Type MAC Estimated Blood Loss Estimated blood loss (mL): Minimal Specimens/Packing Specimens Removed Right 3rd metatarsal and right 3rd digit Packing: Iodoform, 1" BELKIS DUMONT DPM Mar 15, 2020 11:01
[2020-03-15] MEDS ORDERED: ONDANSETRON 4 MG/2 ML (SDV) Z0FRAN IVP PRN (11:15)
[2020-03-15] MEDS ORDERED: HYDROmorphone 2 MG/ML VIAL (DILAUDID) IV ONE (11:15)
[2020-03-15] MEDS: DAKIN'S FULL STRENGTH (0.5%) 480 ML BTL TOP SCH (12:10)
[2020-03-15] MEDS: SILVER SULFADIAZINE 50 GM CREAM TOP SCH (12:10)
--- NOTE | 2020-03-15 12:15 | Diagnostic Imaging Report ---
Indication: Postop. Findings: 3rd ray resection at the level of the mid metatarsal performed. There is overlying dressing limiting detail. No identifiable opaque foreign body. Impression: Postoperative changes to the 3rd ray with no appreciable pathological retained opaque foreign body but overlying dressing limits detail. Dictated by: Dictated on workstation # [id number]
[2020-03-15 12:51] LABS: CALCIUM 7.9 MG/DL (8.5-10.1); CREATININE SERUM 1.24 MG/DL (0.60-1.30); POTASSIUM 3.5 MMOL/L (3.6-5.0)
--- NOTE | 2020-03-15 14:32 | OPERATIVE REPORT ---
DATE OF SERVICE: 03/15/2020 SURGEON: Marjorie Dumont DPM. PREOPERATIVE DIAGNOSIS: Osteomyelitis, right third metatarsal and third digit with deep abscess. POSTOPERATIVE DIAGNOSIS: Osteomyelitis, right third metatarsal and third digit with deep abscess. PROCEDURE: 1. Amputation of right third metatarsal and right third toe. 2. Incision and drainage, all right foot. WOUND CLASS: Contaminated. ANESTHESIA: Monitored anesthesia care. HEMOSTASIS: Pneumatic ankle tourniquet at 250 mmHg. INDICATIONS: This 54-year-old female presents with a chronic ulceration to the right foot. She was admitted for IV antibiotics and sepsis. A plain x-ray was suspicious of osteomyelitis, which was confirmed with the MRI. We discussed treatment options including long-term antibiotics as well as incision and drainage and amputation. The patient is opting for an amputation of the infected bone as well as an incision and drainage of the abscess to the right foot after risks and complications were discussed at length. No guarantees were extended to the patient and she is willing to proceed. DESCRIPTION OF PROCEDURE: The patient was brought back to the operating table, placed in secure supine position. Appropriate timeout was performed. Pneumatic ankle tourniquet was placed on the right lower extremity over several layers of padding. The right foot was then anesthetized utilizing an ankle block of 1:1 mixture of 1% Xylocaine, 0.5% Marcaine plain. A 21 mL was utilized. Great care was taken not to penetrate any neurovascular vessels with the injection. The right foot was then prepped and draped in normal sterile manner. The right foot was elevated and allowed to exsanguinate after which the tourniquet was inflated to 250 mmHg. Attention was then directed to the dorsal aspect of the right foot where a 4 cm longitudinal linear incision was created along the third metatarsal circumscribing the third toe. The incision was deepened down to bone after which the third metatarsophalangeal joint was disarticulated and the third toe sent for gross and microscopic evaluation. There is significant breakdown of bone to the third metatarsal head as well as the base of the proximal phalanx. The head of the third metatarsal was sent for culture and sensitivity. Utilizing a power sagittal saw, the mid diaphysis cut was performed from dorsal distal to plantar proximal. This bone was found to have good integrity with a cut was performed. Distal third metatarsal was sent for gross and microscopic evaluation along with the digit. Attention was then directed to the plantar aspect of the foot where a boggy skin was identified. The incision was continued from the interdigital space to the plantar aspect of the foot where the chronic ulceration was identified and circumscribed. The incision was carried out more proximally and a deep abscess was identified along the flexor tendons as well as underneath the subcutaneous tissue. Sharp dissection was carried out to remove all this purulent and necrotic tissue. Some electrocautery was also performed. Malodor was improved after the incision and drainage was performed. Irrigation was then performed with 3000 mL of normal saline. Once this was performed, the tourniquet was released and no pulsatile bleeding was identified to the incision and drainage area. The active oozing bleeders were cauterized as encountered. An iodoform packing one inch in width was applied to the wound followed by sterile 4 x 4's, ABD pads as well as a Kerlix and Coban. The patient is instructed to be nonweightbearing on the right lower extremity. She is going to have wound care performed daily and she was referred back to the wound care here at [facility]. Job ID: [id number] DocumentID: [id number] Dictated Date: 03/15/2020 11:17:03 Grab Jack Man Date: 03/15/2020 14:31:44 Dictated By: MARJORIE DUMONT DPM
--- NOTE | 2020-03-15 14:40 | NUR ---
PT TRANSFERRED TO ROOM 403 FROM ICU. SHE WAS ACCOMPANIED BY [employer] [employer]. PT HAD ALL PERSONAL BELONGINGS WITH HER AT THIS TIME. SHE WAS ORIENTED TO ROOM. SHE IS ALERT AND ORIENTED X 4 AT THIS TIME. HER RT FOOT IS ELEVATED ON TOWEL AND THERE IS RED BLOOD ON COBAN WRAP. SHE DENIES PAIN AT THIS TIME.
[2020-03-15] MEDS: HYDROcodone/APAP 10 MG/325 MG (LORTAB) TAB PO PRN (15:05)
[2020-03-15] MEDS: LOPERAMIDE 2 MG (IMODIUM) TABLET PO PRN ×2 (16:00→18:31)
--- NOTE | 2020-03-15 16:26 | Physical Therapy Evaluation ---
PT Evaluation-General Medical Diagnosis Admission Date Mar 14, 2020 at 11:29 Medical Diagnosis: Foot ulcer Onset Date: Mar 14, 2020 Therapy Diagnosis Therapy Diagnosis: decreased mobility Height/Weight Height (Feet): 5 Height (Inches): 8.00 Weight (Pounds): 170 Precautions Precautions/Isolations: Standard Precautions Weight Bear Status Right Lower Extremity: Right Non Weight Bearing Left Lower Extremity: Left Partial Weight Bearing Heel contact for balance and transfers Referral Physician: Dr. Marjorie Preston DPM Reason for Referral: Evaluation/Treatment Medical History Pertinent Medical History: DM Additional Medical History fibromyalgia, chronic foot wound Current History Presented to ER with fever, oozing foot wound; amputation of 3rd metatarsal and toe. Reviewed History: Yes Social History Home: Single Level Current Living Status: Alone (daughter staying with her, parents live down the street) Entry Into Home: Stairs With Railing PT Steps Into Home: 2 Prior Prior Level of Function SCALE: Activities may be completed with or without assistive devices. 5-Pfituafocu-bhilspq completes the activity by him/herself with no assistance from a helper. 5-Set-up or Clean-up Assistance-helper sets up or cleans up; patient completes activity. [place] assists only prior to or following the activity. 4-Supervision or Touching Assistance-helper provides verbal cues and/or touching/steadying and/or contact guard assistance as patient completes act ivity. Assistance may be provided throughout the activity or intermittently. 3-Partial/Moderate Assistance-helper does LESS THAN HALF the effort. [place] lifts, holds or supports trunk or limbs, but provides less than half the effort. 2-Substantial/Maximal Assistance-helper does MORE THAN HALF the effort. [place] lifts or holds trunk or limbs and provides more than half the effort. 3-Xsadxjenm-iyogev does ALL the effort. Patient does none of the effort to complete the activity. Or, the assistance of 2 or more helpers is required for the patient to complete the activity. If activity was not attempted, code reason: 7-Patient Refused. 9-Not Applicable-not attempted and the patient did not perform the activity before the current illness, exacerbation or injury. 10-Not Attempted due to Environmental Limitations-(lack of equipment, weather restraints, etc.). 88-Not Attempted due to Medical Conditions or Safety Concerns. Bed Mobility: 6 Transfers (B,C,W/C): 6 Gait: 6 Stairs: 6 Indoor Mobility (Ambulation): Independent Stairs: Independent Prior Devices Use: None PT Evaluation-Current Subjective Pt. in bed and agrees to therapy, states she needs to use commode. Nurse present to assist. Pt/Family Goals home Objective Patient Orientation: Person, Place, Time, Situation Attachments: IV ROM/Strength ROM Upper Extremities WNL ROM Lower Extremities WNL (B) hips and knees; decreased (B) ankles Strength Upper Extremities WNL Strength Lower Extremities WNL (B) hips and knees; n/a (B) ankles Integumentary/Posture Integumentary bandages (B) foot, ankle with drainage on R bandages, nursing aware and reinforcing bandages Bowel Incontinence: No Bladder Incontinence: No Posture WNL Neuromuscular (Tone, Coordination, Reflexes) unremarkable Sensory Vision: Wears Glasses Hearing: Functional Sensation Right Upper Extremit: Intact Sensation Left Upper Extremity: Intact Sensation Right Lower Extremit: Impaired Sensation Left Lower Extremity: Impaired Transfers Sit to Lying (QC): 6 Lying to Sitting/Side of Bed(Q: 6 Sit to Stand (QC): 4 Chair/Jdg-ln-Hfmqt Xfer(QC): 3 Toilet Transfer (QC): 3 pt. maintains NWB on R foot and verbalizes weight through the heel on the L foot with surgical shoe in place Balance Sitting Static: Good Sitting Dynamic: Good Standing Static: Good Standing Dynamic: Fair Assessment/Needs Pt. is a 54 y.o. female s/p amputation of R 3rd metatarsal and toe and who presents with decreased mobility. Pt. was able to maintain NWB on R during transfers and keeps weight in the L heel during transfers and is able to 'hop' with use of FWW. Pt. would benefit from short-term skilled PT to improve safe mobility for return home. Rehab Potential: Good PT Short Term Goals Short Term Goals Time Frame: Mar 19, 2020 Sit to stand: 5 Chair/dxb-ae-zfmre transfer: 5 Toilet transfer: 5 Walk 10 feet: 5 PT Plan Problem List Problem List: Activity Tolerance, Functional Strength, Safety, Balance, Gait, Transfer, Bed Mobility, ROM Treatment/Plan Treatment Plan: Continue Plan of Care Treatment Plan: Bed Mobility, Education, Functional Activity Jessica, Functional Strength, Gait, Safety, Therapeutic Exercise, Transfers Treatment Duration: Mar 19, 2020 Frequency: 5 times per week Estimated Hrs Per Day: .25 hour per day Patient and/or Family Agrees t: Yes Time/GCodes Time In: 1537 Time Out: 1605 Total Billed Treatment Time: 28 Total Billed Treatment 1, EVH 10', FA 18' NABILA LINDQUIST PT Mar 15, 2020 16:26
[2020-03-15] MEDS: GABAPENTIN 100 MG (NEURONTIN) CAP PO PRN (18:32)
[2020-03-15] MEDS: oxyCODONE ER 20 MG (OxyCONTIN CR) TAB PO PRN (22:22)
[2020-03-16 00:05] VITALS: BP 135/85
[2020-03-16] MEDS ORDERED: TROUGH ORDER-PHARMACY XX NR ×2 (01:00→13:00)
[2020-03-16] MEDS: VANCOMYCIN 1500 MG/NS 500 ML IVPB IV SCH ×2 (02:15)
--- NOTE | 2020-03-16 02:15 | NUR ---
LAB CALLED THIS RN WITH RESULTS OF VANCO TROUGH OF 32.7. NEXT SCHEDULED BAG OF VANC HELD AT 0200 D/T HIGH LEVEL.
[2020-03-16] MEDS: PIPERACILLIN/TAZOBACTAM (BULK) 4.5 GM in NS (IVPB) 100 ML IV SCH ×3 (02:29→17:14)
[2020-03-16 05:00] LABS: BASOPHILS # (AUTO) 0.1 10^3/uL (0.0-0.1); BASOPHILS % (AUTO) 1 % (0-10); EOSINOPHILS # (AUTO) 0.4 10^3/uL (0.0-0.3); EOSINOPHILS % (AUTO) 4 % (0-10); HEMATOCRIT 29 % (35-52); HEMOGLOBIN 9.3 G/DL (11.5-16.0); LYMPHOCYTES # (AUTO) 2.2 X 10^3 (1.0-4.0); LYMPHOCYTES % (AUTO) 21 % (12-44); MEAN CORPUSCULAR HEMOGLOBIN 27 PG (25-34); MEAN CORPUSCULAR HGB CONC 33 G/DL (32-36); MEAN CORPUSCULAR VOLUME 84 FL (80-99); MEAN PLATELET VOLUME 9.6 FL (7.4-10.4); MONOCYTES # (AUTO) 0.9 X 10^3 (0.0-1.0); MONOCYTES % (AUTO) 9 % (0-12); NEUTROPHILS # (AUTO) 7.1 X 10^3 (1.8-7.8); NEUTROPHILS % (AUTO) 67 % (42-75); PLATELET COUNT 367 10^3/uL (130-400); RED CELL DISTRIBUTION WIDTH 13.6 % (10.0-14.5); WHITE BLOOD COUNT 10.7 10^3/uL (4.3-11.0)
[2020-03-16 05:30] LABS: ALBUMIN 2.4 GM/DL (3.2-4.5); BILIRUBIN,TOTAL 0.4 MG/DL (0.1-1.0); CALCIUM 7.8 MG/DL (8.5-10.1); CREATININE SERUM 1.28 MG/DL (0.60-1.30); TOTAL PROTEIN 5.9 GM/DL (6.4-8.2)
[2020-03-16] MEDS: inSUlin ASPART (NovoLOG) 1 UNIT/0.01 ML (CHARGE PER UNIT) SC SCH ×4 (05:35→21:18)
[2020-03-16] MEDS: MAGNESIUM 1 GM/100 ML IVPB 100 ML IV SCH (05:36)
[2020-03-16] MEDS: KCL 20 MEQ TAB (K-DUR) PO SCH ×4 (05:37→10:14)
[2020-03-16] MEDS: POTASSIUM CL 10MEQ/50ML IVPB 50 ML IV SCH (05:37)
[2020-03-16] MEDS ORDERED: KCL 20 MEQ TAB (K-DUR) PO SCH (07:00)
[2020-03-16 07:15] VITALS: BP 136/76
--- NOTE | 2020-03-16 07:36 | NUR ---
PHARMACY CONTACTED BY THIS NURSE PARARESCUE MANAGER RE [place] LEVEL. PHARMACIST IS HOLDING VANC CURRENTLY AND TROUGH IS SCHEDULED AT 1300. DR CABALLERO MADE AWARE WELL BY THIS RN. NO NEW ORDERS.
[2020-03-16] MEDS: DULoxetine 30 MG (CYMBALTA) CAP PO SCH (08:06)
[2020-03-16] MEDS: HYDROcodone/APAP 10 MG/325 MG (LORTAB) TAB PO PRN ×3 (08:11→23:27)
[2020-03-16] MEDS ORDERED: LOPERAMIDE 2 MG (IMODIUM) TABLET PO PRN (10:30)
--- NOTE | 2020-03-16 10:33 | Progress Note - Hospitalist ---
Subjective HPI/CC On Admission Date Seen by Provider: Mar 16, 2020 Time Seen by Provider: 10:28 Pt is a 54yoCF with a PMH of IDDMII, fibromylagia, chronic foot wounds presented to the ER due to fever and oozing foot wound. She was seen in an urgent care last night and was febrile, tachycardiac, and had a leukocytosis. She was given Rocephin last night and sent Doxycycline but was not able to get it from the pharmacy before they closed. This morning her X-ray from the urgent care was read as osteomyelitis and she was sent to the ER for evaluation. She reports she has had chronic foot ulcers for [address] Malloy, Dr Roth, and [facility] for this in the past. She was scheduled to see Dr Tineo on 03/17. She has a chronic ulcer on the planter aspect of her foot that is regularly packed but states that it as tracked and spread to the bottom of her foot with a large area of swelling and redness. She reports severe pain that started two days ago as well as shortness of breath. Her blood sugars have been high. Normally they run around 180 and her A1c is 8 but she has been in the 400s yesterday and today. Subjective/Events-last exam Pt reports doing well. Pain controlled. has diarrhea. This is chronic but worse today. Requesting probiotic. Focused Exam Lactate Level 03/14/20 10:45: Lactic Acid Level 3.03*H 03/14/20 12:45: Lactic Acid Level 2.13*H 03/14/20 14:45: Lactic Acid Level 0.98 Objective Exam Vital Signs Vital Signs Date Time Temp Pulse Resp B/P (MAP) Pulse Ox O2 Delivery O2 Flow Rate FiO2 03/16/20 09:00 Room Air 03/16/20 07:15 36.7 75 18 136/76 (96) 97 03/15/20 11:06 10 Capillary Refill : Less Than 3 SecondsLess Than 3 Seconds General Appearance: No Apparent Distress, WD/WN Respiratory: Lungs Clear, No Accessory Muscle Use, No Respiratory Distress Cardiovascular: Regular Rate, Rhythm, No Murmur Gastrointestinal: Normal Bowel Sounds, Non Tender, Soft Neurologic/Psychiatric: Alert, Oriented x3 Results/Procedures Lab Laboratory Tests 03/15/20 12:19 03/16/20 03:50 Patient resulted labs reviewed. Assessment/Plan Assessment and Plan Assess & Plan/Chief Complaint Severe Sepsis- resolved Diabetic Foot Wound- POD #1 s/p right metatarsal amputation and I&D Continue Vanc and Zosyn Vanc trough elevated so currently on hold Cultures consistent with skin lon, await MRI consistent with osteomyelitis Podiatry consulted, appreciate assistance Add probiotic for diarrhea Poorly controlled IDDMII Hypokalemia pseudohyponatremia Last A1c 9.1 in November, will recheck Monitor electrolytes and replace per protocols Continue current regimen and BS well controlled TRUNG Baseline Creatine 0.8 in November 21.28 today Fibromyalgia Continue home meds Diagnosis/Problems Diagnosis/Problems (1) Fibromyalgia (2) Diabetic foot ulcer Qualifiers: Diabetic foot ulcer location: midfoot Diabetes mellitus type: type 2 Laterality: right Non-pressure ulcer stage: with bone involvement without evidence of necrosis Qualified Codes: E11.621 - Type 2 diabetes mellitus with foot ulcer; L97.416 - Non-pressure chronic ulcer of right heel and midfoot with bone involvement without evidence of necrosis (3) Sepsis Status: Acute Qualifiers: Sepsis type: sepsis due to unspecified organism Sepsis acute organ dysfunction status: with acute organ dysfunction Severe sepsis acute organ dysfunction type: unspecified Severe sepsis shock status: without septic shock Qualified Codes: A41.9 - Sepsis, unspecified organism; R65.20 - Severe sepsis without septic shock (4) DKA (diabetic ketoacidoses) Status: Acute (5) Diabetes mellitus, insulin dependent (IDDM), uncontrolled Status: Acute (6) Chronic pain Status: Acute Clinical Quality Measures DVT/VTE Risk/Contraindication: Risk Factor Score Per Nursin RFS Level Per Nursing on Admit: 4+=Very High Contraindications-Pharm: Other *list below* Other: SCD'S ONLY NO MED R/T SURGERY BERT CABALLERO MD Mar 16, 2020 10:33
[2020-03-16 11:35] LABS: ALBUMIN 2.5 GM/DL (3.2-4.5); BILIRUBIN,TOTAL 0.4 MG/DL (0.1-1.0); CALCIUM 7.8 MG/DL (8.5-10.1); CREATININE SERUM 1.31 MG/DL (0.60-1.30); POTASSIUM 3.6 MMOL/L (3.6-5.0); TOTAL PROTEIN 6.3 GM/DL (6.4-8.2)
--- NOTE | 2020-03-16 11:49 | Anesthesia-General Post-Op ---
MAC Patient Condition Mental Status/LOC: Same as Preop Cardiovascular: Satisfactory Nausea/Vomiting: Absent Respiratory: Satisfactory Pain: Controlled Complications: Absent Post Op Complications Complications None Follow Up Care/Instructions Patient Instructions None needed. Anesthesiology Discharge Order Discharge Order Patient is doing well, no complaints, stable vital signs, no apparent adverse anesthesia problems. No complications reported per nursing. MARIELY NICHOLSON CRNA Mar 16, 2020 11:49
--- NOTE | 2020-03-16 12:00 | NUR ---
DR CABALLERO ORDERED TO INCREASE IMODIUM FROM 2 MG TO 4 MG PRN DIARRHEA. SHE ALSO SAID WE COULD COLLECT STOOL SAMPLE D/T DIARRHEA AND ORANGE/YELLOW TINT TO IT.
[2020-03-16] MEDS: oxyCODONE ER 20 MG (OxyCONTIN CR) TAB PO PRN (12:18)
--- NOTE | 2020-03-16 12:23 | Podiatry Progress Note ---
Standard Progress Note Progress Notes/Assess & Plan Date Seen by a Provider: Mar 16, 2020 Time Seen by a Provider: 12:15 Progress/Assessment & Plan Post-op day #1. Doing well, pain level is 6/10 but controlled with PO meds. She reports no F/C/N/V. Dressing intact right foot. No active bleeding today. Wound to the 3rd ray amputation site is viable, no necrosis, no mal-odor, no proximal streaking. A/P: Osteomyelitis of the right 3rd metatarsal and 3rd toe, Full thickness wound left 1st metatarsal, Neuropathy Sterile wound dressing with Dakin wet-to-dry, right foot. Continue with Dakins dressing daily, right foot. Recommend follow up with Wound Care upon discharge. She will follow up in my office in one week. If she continues to improve with wound care and antibiotics, she is a good candidate for delayed primary closure of right foot. Heel contact only for right foot. Recommend wound care daily for the left foot with splint shoe. Final Diagnosis Osteomyelitis of the right 3rd metatarsal and 3rd toe, Full thickness wound left 1st metatarsal, Neuropathy BELKIS DUMONT DPM Mar 16, 2020 12:23
--- NOTE | 2020-03-16 12:30 | NUR ---
DR DUMONT CAME BY AND CHANGED DRESSING WITH THIS RN'S ASSISTANCE. HIS ORDERS FOR DRESSING CHANGE TO RT FOOT IN INTERVENTIONS. NO NEW ORDERS. DID SAY HE WOULD ROUND TOMORROW AFTER HE IS DONE IN CLINIC.
--- NOTE | 2020-03-16 14:00 | NUR ---
VANCOMYCIN TROUGH CAME BACK AT 24.4. ADRIAN IN PHARM NOTIFIED AND WILL HOLD NEXT DOSE AND TO COLLECT TROUGH IN AM. THIS RN DID ORDER TROUGH FOR AM WHEN SHE GETS HER BMP.
[2020-03-16] MEDS: LACTOBACILLUS ACIDOPHILUS (PROBIOTIC) CAPSULE PO SCH ×2 (14:29→17:14)
[2020-03-16] MEDS: DAKIN'S FULL STRENGTH (0.5%) 480 ML BTL TOP SCH (14:30)
[2020-03-16] MEDS: SILVER SULFADIAZINE 50 GM CREAM TOP SCH (14:31)
--- NOTE | 2020-03-16 14:48 | Physical Therapy Progress Note ---
Therapy Progress Note Pt. in bed and states she has been up and down several times to commode due to diarrhea. Pt. states she is comfortable at present time and pleasantly declines therapy. Nurse in room confirms patient completing transfers correctly and likely not going home for 1-2 days. We will return for treatment 03/17/20. 1432 NABILA LINDQUIST PT Mar 16, 2020 14:48
[2020-03-16 15:25] VITALS: BP 119/73
[2020-03-16] MEDS: GABAPENTIN 100 MG (NEURONTIN) CAP PO PRN (21:17)
[2020-03-17 00:35] VITALS: BP 149/94
[2020-03-17] MEDS: PIPERACILLIN/TAZOBACTAM (BULK) 4.5 GM in NS (IVPB) 100 ML IV SCH ×2 (01:35→10:59)
[2020-03-17] MEDS ORDERED: TROUGH ORDER-PHARMACY XX NR ×2 (05:00)
[2020-03-17 05:42] LABS: BASOPHILS # (AUTO) 0.1 10^3/uL (0.0-0.1); BASOPHILS % (AUTO) 1 % (0-10); EOSINOPHILS # (AUTO) 0.4 10^3/uL (0.0-0.3); EOSINOPHILS % (AUTO) 5 % (0-10); HEMATOCRIT 33 % (35-52); HEMOGLOBIN 10.6 G/DL (11.5-16.0); LYMPHOCYTES # (AUTO) 2.7 X 10^3 (1.0-4.0); LYMPHOCYTES % (AUTO) 33 % (12-44); MEAN CORPUSCULAR HEMOGLOBIN 27 PG (25-34); MEAN CORPUSCULAR HGB CONC 32 G/DL (32-36); MEAN CORPUSCULAR VOLUME 84 FL (80-99); MEAN PLATELET VOLUME 9.1 FL (7.4-10.4); MONOCYTES # (AUTO) 0.8 X 10^3 (0.0-1.0); MONOCYTES % (AUTO) 10 % (0-12); NEUTROPHILS # (AUTO) 4.5 X 10^3 (1.8-7.8); NEUTROPHILS % (AUTO) 53 % (42-75); PLATELET COUNT 418 10^3/uL (130-400); RED CELL DISTRIBUTION WIDTH 13.3 % (10.0-14.5); WHITE BLOOD COUNT 8.4 10^3/uL (4.3-11.0)
[2020-03-17 05:57] LABS: ALBUMIN 2.7 GM/DL (3.2-4.5); POTASSIUM 3.5 MMOL/L (3.6-5.0)
[2020-03-17 05:58] LABS: CALCIUM 8.7 MG/DL (8.5-10.1)
[2020-03-17] MEDS: inSUlin ASPART (NovoLOG) 1 UNIT/0.01 ML (CHARGE PER UNIT) SC SCH ×3 (06:00→16:29)
[2020-03-17 06:01] LABS: BILIRUBIN,TOTAL 0.3 MG/DL (0.1-1.0)
[2020-03-17] MEDS: MAGNESIUM 1 GM/100 ML IVPB 100 ML IV SCH (06:02)
[2020-03-17 06:03] LABS: CREATININE SERUM 1.43 MG/DL (0.60-1.30)
[2020-03-17] MEDS: KCL 20 MEQ TAB (K-DUR) PO SCH (06:03)
[2020-03-17] MEDS: POTASSIUM CL 10MEQ/50ML IVPB 50 ML IV SCH (06:03)
[2020-03-17 06:12] LABS: VANCOMYCIN,TROUGH 15.8 UG/ML (10.0-20.0)
[2020-03-17 07:46] VITALS: BP 152/89
[2020-03-17] MEDS ORDERED: KCL 20 MEQ TAB (K-DUR) PO ONE (08:00)
[2020-03-17] MEDS: DULoxetine 30 MG (CYMBALTA) CAP PO SCH (08:23)
[2020-03-17] MEDS: LACTOBACILLUS ACIDOPHILUS (PROBIOTIC) CAPSULE PO SCH ×2 (08:23→12:11)
[2020-03-17] MEDS ORDERED: VANCOMYCIN 1500 MG/NS 500 ML IVPB IV SCH ×2 (08:30)
--- NOTE | 2020-03-17 09:48 | Physical Therapy Daily Note ---
PT Daily Note-Current Subjective Patient reports, "I just want to go home." Pain Numeric Pain Scale: 0-No Pain Location: No Pain Reported Mental Status Patient Orientation: Normal For Age Attachments: IV Transfers SCALE: Activities may be completed with or without assistive devices. 6-Ldrqlizodw-rjhbwrg completes the activity by him/herself with no assistance from a helper. 5-Set-up or Clean-up Assistance-helper sets up or cleans up; patient completes activity. [place] assists only prior to or following the activity. 4-Supervision or Touching Assistance-helper provides verbal cues and/or touching/steadying and/or contact guard assistance as patient completes activity. Assistance may be provided throughout the activity or intermittently. 3-Partial/Moderate Assistance-helper does LESS THAN HALF the effort. [place] lifts, holds or supports trunk or limbs, but provides less than half the effort. 2-Substantial/Maximal Assistance-helper does MORE THAN HALF the effort. [place] lifts or holds trunk or limbs and provides more than half the effort. 5-Iajcuvazl-rqrflc does ALL the effort. Patient does none of the effort to complete the activity. Or, the assistance of 2 or more helpers is required for the patient to complete the activity. If activity was not attempted, code reason: 7-Patient Refused. 9-Not Applicable-not attempted and the patient did not perform the activity before the current illness, exacerbation or injury. 10-Not Attempted due to Environmental Limitations-(lack of equipment, weather restraints, etc.). 88-Not Attempted due to Medical Conditions or Safety Concerns. Roll Left & Right (QC): 6 Lying to Sitting/Side of Bed(Q: 6 Sit to Stand (QC): 5 Chair/Ljh-ls-Datjx Xfer(QC): 5 unable to maintain NWB right foot with FWW with sit to stand and with transfer to recliner. Weight Bearing Right Lower Extremity: Right Non Weight Bearing Left Lower Extremity: Left Partial Weight Bearing Heel contact for balance and transfers Gait Training Distance: 5' Gait Assistive Device: FWW unable to maintain weight bearing status (surgical shoes in place) Exercises Supine Ex: Ankle pumps, Quad Set, Heel Slides, Straight leg raise Supine Reps: 15 Assessment Patient is up in recliner with needs met. Education with patient on NWB status right foot,however, patient unable to maintain. PT Short Term Goals Short Term Goals Time Frame: Mar 19, 2020 Sit to stand: 5 Chair/soa-ab-dqebn transfer: 5 Toilet transfer: 5 Walk 10 feet: 5 PT Plan Treatment/Plan Treatment Plan: Continue Plan of Care Treatment Plan: Bed Mobility, Education, Functional Activity Jessica, Functional Strength, Gait, Safety, Therapeutic Exercise, Transfers Treatment Duration: Mar 19, 2020 Frequency: 5 times per week Estimated Hrs Per Day: .25 hour per day Patient and/or Family Agrees t: Yes Time/GCodes Time In: 928 Time Out: 940 Total Billed Treatment Time: 12 Total Billed Treatment 1 visit FA 12 min JAMAICA SCHMIDT PT Mar 17, 2020 09:48
[2020-03-17] MEDS: DAKIN'S FULL STRENGTH (0.5%) 480 ML BTL TOP SCH (10:00)
[2020-03-17] MEDS: SILVER SULFADIAZINE 50 GM CREAM TOP SCH (10:00)
--- NOTE | 2020-03-17 13:00 | NUR ---
"RD ASSESSMENT PMHx: DM; fibromyalgia; chronic foot wounds; diverticulosis; chronic diarrhea PT INTERACTION: Pt was awake and pleasant during nutrition assessment. Pt states current appetite is good, and was the same prior to admit. Note avg PO intake 85% x2d, per chart review. Pt states following a regular diet at home and has no issues with chewing/swallowing food. Pt states no recent issues with nausea or vomiting, but has had some issues with diarrhea. Note last BM was 03/16, and not currently on bowel regimen per chart review. Pt states recent 5-10# wt gain, but unsure of timeframe. Note unable to determine recent wt hx, per chart review. Pt states current DM management is pretty good, but unsure of avg blood glucose levels. Note recent HbA1c of 10.1 on 03/14, per chart review. Note presence of wound on right foot, per chart review. ABNORMAL NUTRITION-RELATED LAB VALUES LOW: K 3.5; BUN 6; alb 2.7 HIGH: cr 1.43; AST 43; alkphos 220; HbA1c 10.1 (03/14/20) Est. kcal needs: 0713-8951 kcal | 15-18 kcal/kg Est. Pro needs: 122-143 g Pro | 1.2-1.4 g Pro/kg PES STATEMENT: Inadequate protein intake (NI-5.6.1) related to increased protein needs as evidenced by presence of wound (right foot) INTERVENTION: Continue with current diet order of CHO 60g/m 1snack diet. Add Ensure HP (vary) to meals TID. Provides 160 kcal and 16 g Pro per serving for perceived benefit to wound healing. Offered dietary education on DM and its relationship to wounds, but pt declined at this time. Will attempt to offer again prior to discharge. Will continue to follow and reassess as pt needs, intake, and status change. MONITOR/EVALUATE: PO Intake; Plan of Care; Hydration Status; Weight Status; Lab Values Linda Delacruz, MS, RD, LD"
--- NOTE | 2020-03-17 13:01 | Physician Query Clarification ---
PQ-Further Specificity Admission/Discharge Admission Date: Mar 14, 2020 at 11:29 Discharge Date: The medical record reflects the following clinical scenario: History/Risk Factors: Severe sepsis Diabetes type 2 with osteomyelitis of right 3rd metatarsal head and base of the 3rd proximal phalanx right foot. Clinical Findings: Lower extremity MRI: Abnormal marrow signal intensity and apparent osseous destructive changes involving the distal 3rd metatarsal as well as the proximal phalanx of the 3rd toe. There is also significant surrounding soft tissue edema and thickening. Features are concerning for an infectious/inflammatory process such as osteomyelitis. No superficial or deep soft tissue fluid collection or abscess is identified. 03/14 xray right foot impression: Chronic bony changes of left 1st metatarsal with probable small plantar ulcer. There is also destructive changes of the distal 3rd metatarsal and proximal phalanx 3rd toe suggestive of acute osteomyelitis. Treatment: Amputation of right 3rd metatarsal and 3rd digit with deep abscess. Question: Can you further specify Osteomyelitis per the clinical indicators above? Please document a response in the Progress Notes or Discharge Summary. 1. Acute osteomyelitis of 3rd metatarsal and proximal phalanx 3rd toe right foot. 2. Chronic osteomyelitis of 3rd metatarsal and proximal phalanx 3rd toe right foot. 3. Other, with explanation of the clinical findings. 4. Clinically undetermined, no explanation for the clinical findings. PHYSICIAN RESPONSE Can you specify per above: 1 Please remember a lack of response to the above will prompt a phone page by CDI/Coding staff. In responding to this query, please exercise your independent professional judgment. The purpose of this communication is to more accurately reflect the complexity of your patients condition. The fact that a question is asked does not imply that any particular answer is desired or expected. Thank you for your timely response to this clarification. Requestors name: Leslye Bowers [facility] Phone # ext [phone] or [phone] THIS PHYSICIAN QUERY FORM IS A PERMANENT PART OF THE MEDICAL RECORD LESLYE BOWERS Mar 17, 2020 13:01 BERT CABALLERO MD Mar 19, 2020 22:03
--- NOTE | 2020-03-17 14:04 | Physical Therapy Daily Note ---
PT Daily Note-Current Subjective Patient reports she transferred herself to commode independently. Pain Numeric Pain Scale: 0-No Pain Location: No Pain Reported Mental Status Patient Orientation: Normal For Age Attachments: IV Transfers SCALE: Activities may be completed with or without assistive devices. 1-Yoluuvzhgg-hwuzynp completes the activity by him/herself with no assistance from a helper. 5-Set-up or Clean-up Assistance-helper sets up or cleans up; patient completes activity. [place] assists only prior to or following the activity. 4-Supervision or Touching Assistance-helper provides verbal cues and/or touching/steadying and/or contact guard assistance as patient completes activ ity. Assistance may be provided throughout the activity or intermittently. 3-Partial/Moderate Assistance-helper does LESS THAN HALF the effort. [place] lifts, holds or supports trunk or limbs, but provides less than half the effort. 2-Substantial/Maximal Assistance-helper does MORE THAN HALF the effort. [place] lifts or holds trunk or limbs and provides more than half the effort. 4-Wvbokishw-uxzqwq does ALL the effort. Patient does none of the effort to complete the activity. Or, the assistance of 2 or more helpers is required for the patient to complete the activity. If activity was not attempted, code reason: 7-Patient Refused. 9-Not Applicable-not attempted and the patient did not perform the activity before the current illness, exacerbation or injury. 10-Not Attempted due to Environmental Limitations-(lack of equipment, weather restraints, etc.). 88-Not Attempted due to Medical Conditions or Safety Concerns. Sit to Stand (QC): 5 unable to maintain NWB right foot (surgical shoe in place bilaterally) Weight Bearing Right Lower Extremity: Right Non Weight Bearing Left Lower Extremity: Left Partial Weight Bearing Heel contact for balance and transfers Gait Training Distance: 5' x 2 Gait Assistive Device: FWW Exercises Supine Ex: Ankle pumps, Heel Slides, Straight leg raise Supine Reps: 10 Assessment Patient tolerated treatment and remains up in recliner with bilateral LE elevated. PT educated patient on importance of NWB right foot to allow proper healing. Patient voices understanding. PT Short Term Goals Short Term Goals Time Frame: Mar 19, 2020 Sit to stand: 5 Chair/hmr-ry-uextk transfer: 5 Toilet transfer: 5 Walk 10 feet: 5 PT Plan Treatment/Plan Treatment Plan: Continue Plan of Care Treatment Plan: Bed Mobility, Education, Functional Activity Jessica, Functional Strength, Gait, Safety, Therapeutic Exercise, Transfers Treatment Duration: Mar 19, 2020 Frequency: 5 times per week Estimated Hrs Per Day: .25 hour per day Patient and/or Family Agrees t: Yes Time/GCodes Time In: 1311 Time Out: 1325 Total Billed Treatment Time: 14 Total Billed Treatment 1 visit EX 14 min JAMAICA SCHMIDT PT Mar 17, 2020 14:04
[2020-03-17] MEDS ORDERED: AMOX-358 PO (14:13)
[2020-03-17] MEDS ORDERED: LINE600T12 PO (14:13)
--- NOTE | 2020-03-17 14:35 | Discharge Summary ---
Discharge Summary Reconcile Patient Problems Problems Reviewed?: Yes Instructions for Patient [facility], Assessment/Instructions Take medications as prescribed. Follow up with Dr. Preston. Follow up with your PCP. [facility] will be providing wound care and physical therapy. Physician to follow Patient: Justo Discharge Diet for Home: ADA Diet Hospital Course Date of Admission: Mar 14, 2020 at 11:29 Admission Diagnosis : severe sepsis due to diabetic foot infection Family Physician/Provider: Arturo Kemp DO Date of Discharge: 03/17/20 Discharge Diagnosis: severe sepsis due to osteomyelitis Hospital Course: Risa Cleveland is a 54-year-old female with past medical history of d who presented with severe sepsis due to a diabetic foot infection. Further evaluation revealed underlying osteomyelitis. She was started on IV antibiotics. Dr. Preston was consulted and performed amputation. She was given a course of oral antibiotics to complete as an outpatient. She was set up with [facility] discharge for wound care and physical therapy. She will follow-up with Dr. Preston. She should follow-up with her primary care physician as well. Labs and Pending Lab Test: Laboratory Tests 03/16/20 16:23: Glucometer 194H 03/16/20 17:30: Stool Occult Blood Immunoassay NEGATIVE 03/16/20 20:18: Glucometer 186H 03/17/20 04:50: White Blood Count 8.4, Red Blood Count 3.93L, Hemoglobin 10.6L, Hematocrit 33L, Mean Corpuscular Volume 84, Mean Corpuscular Hemoglobin 27, Mean Corpuscular Hemoglobin Concent 32, Red Cell Distribution Width 13.3, Platelet Count 418H, Mean Platelet Volume 9.1, Neutrophils (%) (Auto) 53, Lymphocytes (%) (Auto) 33, Monocytes (%) (Auto) 10, Eosinophils (%) (Auto) 5, Basophils (%) (Auto) 1, Neutrophils # (Auto) 4.5, Lymphocytes # (Auto) 2.7, Monocytes # (Auto) 0.8, Eosinophils # (Auto) 0.4H, Basophils # (Auto) 0.1, Sodium Level 141, Potassium Level 3.5L, Chloride Level 106, Carbon Dioxide Level 25, Anion Gap 10, Blood Urea Nitrogen 6L, Creatinine 1.43H, Estimat Glomerular Filtration Rate 38, BUN/Creatinine Ratio 4, Glucose Level 80, Calcium Level 8.7, Corrected Calcium 9.7, Total Bilirubin 0.3, Aspartate Amino Transf (AST/SGOT) 45H, Alanine Aminotransferase (ALT/SGPT) 35, Alkaline Phosphatase 220H, Total Protein 7.0, Albumin 2.7L, Vancomycin Level Trough 15.8 03/17/20 11:12: Glucometer 189H Microbiology 03/16/20 C. difficile GDH Antigen & Toxins - Preliminary, Resulted 03/16/20 Stool Culture - Preliminary, Resulted 03/15/20 Gram Stain - Final, Resulted 03/15/20 Anaerobic Culture - Preliminary, Resulted No anaerobes isolated 03/15/20 Surgical Culture - Preliminary, Resulted Mixed Bacterial Shayy 03/14/20 Urine Culture - Final, Complete NO GROWTH 03/14/20 MRSA Screen - Final, Complete MRSA not isolated 03/14/20 Blood Culture - Preliminary, Resulted No growth Home Meds Active Augmentin 875-125 Tablet (Amoxicillin/Potassium Clav) 1 Each Tablet 1 Each PO BID 14 Days Zyvox (Linezolid) 600 Mg Tablet 600 Mg PO BID 14 Days Reported Multivitamin 1 Each Tablet 1 Each PO DAILY Melatonin 5 Mg Tablet 5 Mg PO HS PRN D3-50 (Cholecalciferol (Vitamin D3)) 1,250 Mcg Capsule 1,250 Mcg PO TUESDAY Tresiba Flextouch U-100 (Insulin Degludec) 100 Unit/1 Ml Insuln.pen 30 Units SC HS Novolog Flexpen (Insulin Aspart) 300 Units/3 Ml Solution Units SC TIDPC USES PER SLIDING SCALE Oxycontin (Oxycodone HCl) 20 Mg Tab.er.12h 20 Mg PO Q12H PRN Vyvanse (Lisdexamfetamine Dimesylate) 30 Mg Capsule 30 Mg PO DAILY Hyoscyamine Sulfate 0.125 Mg Tab.rapdis 0.125 Mg PO Q4H PRN Fluconazole 150 Mg Tablet 150 Mg PO TUESDAY Furosemide 20 Mg Tablet 20 Mg PO DAILY PRN Hydrocodone-Acetamin 10-325 mg (Hydrocodone/Acetaminophen) 1 Each Tablet 1 Tab PO Q6H PRN Gabapentin 100 Mg Capsule 300 Mg PO TID PRN CAN TAKE 3 (100MG) CAPS UP TO THREE TIMES A DAY Duloxetine HCl 60 Mg Capsule.dr 60 Mg PO DAILY Patient Allergies: Coded Allergies: Sulfa (Sulfonamide Antibiotics) (Verified Allergy, Mild, Hives, 03/14/20) Height (Feet): 5 Height (Inches): 8.00 Weight (Pounds): 170 Home Health Need/Face to Face Date of Face to Face: Mar 17, 2020 Clinical Findings: Instability, Non or partial weight bearing, Pain with ambulation, Wound infection I have seen Pt yfny-wz-aveb: Yes Discharged To: Home Diagnosis/Conditions: Osteomyelitis Problems/Diagnosis/Condition: (1) Osteomyelitis of foot Patient is Homebound due to: Jac fall risk due to instabilty, Non-weight be aring Homebound Status Due to the above stated illness, injury or surgical procedure (medical condition or diagnosis) and associated clinical findings, the patient is homebound because of his/her inability to leave home except with aid of a supportive device and/or person AND leaving the home requires a considerable and taxing effort or is medically contraindicated. Pt req the following assistanc: Aid of another person, Walker Home Health Nursing Orders Home Health Services Order: Nursing Services, Physical Therapy-Evaluate & Treat, Wound Care-Eval/Treat Home Health Infusion Therapy Line Start Date: Mar 17, 2020 Therapy Orders Therapy Orders: Physical Therapy Therapy Specific Orders: Eval assistive deivces, Gait training, Increase strength/endurance Certify Stmt I certify that this patient is under my care and that I, a nurse practitioner or a physician; a casting assistant working with me, had a face to face encounter that - meets the physician face to face encounter requirements with this patient as dated. Discharge Physical Exam General: Alert, Oriented X3, Cooperative, No Acute Distress HEENT: Atraumatic, PERRLA, EOMI, Mucous Memb Moist/[place] Lungs: Clear to Auscultation, Normal Air Movement Heart: Regular Rate, Normal S1, Normal S2, No Murmurs Abdomen: Normal Bowel Sounds, Soft, No Tenderness Extremities: No Edema, No Tenderness/Swelling, Other (right foot with bandage in place) Skin: No Rashes, No Significant Lesion Neuro: Normal Speech, Normal Tone Psych/Mental Status: Mental Status NL, Mood NL SCOTT COLLINS MD Mar 17, 2020 14:32
--- NOTE | 2020-03-17 15:11 | NUR ---
CM/SS visited the patient for the need of a walker. CM/SS provided the patient with a Patient Preference Form. She chose [facility] to get her front Wheeled Walker. MERCEDEZ/SS contacted Petra from DME and faxed over script, H&P, and face sheet. DANIELLE Walker is setting up home health. No further needs from this SS.
[2020-03-17] MEDS ORDERED: DOXY100C2 PO (15:33)
--- NOTE | 2020-03-17 15:58 | NUR ---
FINALIZED DISCHARGE PLAN: Patient will likely discharge to home this evening with a new need for Home Health Care et Durable Medical Equipment. She has elected [facility] for [facility] et [facility] for her medical equipment needs. [facility]: Referral faxed to [facility] attn Rhona et also spoke with Rhona on the phone about the new referral. She will need nursing for new wound care that she will need teaching for et also has a new need for Physical Therapy to help with transfer training et ambulation with FWW et maintaining her restricted weight bear status to her right foot. DME: Lamberto CONNER already faxed orders for new need of FWW et they are delivering this to her room this evening. No further interventions noted at this time.
[2020-03-17 16:00] VITALS: BP 162/102
--- NOTE | 2020-03-17 17:51 | NUR ---
Picked up the patients walker from the ED it is now in her room at bedside. She has everything set up for dismissal if Dr. Preston discharges her. No further interventions noted.
--- NOTE | 2020-03-17 18:06 | Podiatry Progress Note ---
Standard Progress Note Progress Notes/Assess & Plan Date Seen by a Provider: Mar 17, 2020 Time Seen by a Provider: 18:02 Progress/Assessment & Plan Post-op day #2. Doing well, pain level is improved and controlled with PO medication. She reports no F/C/N/V. Dressing intact right foot. No active bleeding today. Wound to the 3rd ray amputation site is viable, no necrosis, no mal-odor, no proximal streaking. There is improved granular tissue. Dressing intact to the left foot. Full thickness wound of approximately 1cm diameter, fibrotic base, no active exudate, 4 mm in depth. No erythema. A/P: S/P amputation of the right 3rd metatarsal and 3rd toe due to osteomye litis, Full thickness wound left 1st metatarsal, Neuropathy Sterile wound dressing with Dakin wet-to-dry, right foot. Continue with Dakins dressing daily, right foot. Recommend follow up with Wound Care upon discharge or home health wound care daily. She will follow up in my office in one week. If she continues to improve with wound care and antibiotics, she is a good candidate for delayed primary closure of right foot. Heel contact only for right foot. Recommend wound care daily with silvadene cream and gauze dressing, left foot with splint shoe. Final Diagnosis Osteomyelitis right foot BELKIS DUMONT DPM Mar 17, 2020 18:06
[2020-03-18] MEDS ORDERED: VITAMIN D2 1.25 MG (50,000 UNITS) CAP PO SCH (09:00)
--- NOTE | 2020-03-18 12:10 | Physician Query Clarification ---
PQ-Debridement Admission/Discharge Admission Date: Mar 14, 2020 at 11:29 Discharge Date: Mar 17, 2020 at 19:15 PHYSICIAN RESPONSE Operative report/procedure note reflects the following description: Incision and drainage all right foot. Report states sharp dissection to remove all this purulent and necrotic tissue QUESTION: Please clarify the depth of the debridement. Please clarify if the debridement was excisional or non-excisional. Please document a response in the Progress Notes or Discharge Summary. 1. Level: Down to BONE Skin Subcutaneous tissue Fascia Muscle Bone 2. Type of debridement: EXCISIONAL - there was an amputation of bone Excisional Non-excisional 3. Other, with explanation of the clinical findings 4. Clinically unable to determine Please remember a lack of response to the above will prompt a phone page by CDI/Coding staff. In responding to this query, please exercise your independent professional judgment. The purpose of this communication is to more accurately reflect the complexity of your patients condition. The fact that a question is asked does not imply that any particular answer is desired or expected. Thank you for your timely response to this clarification. Requestors name: Funmilayo THIS PHYSICIAN QUERY FORM IS A PERMANENT PART OF THE MEDICAL RECORD FUNMILAYO SPANGLER Mar 18, 2020 12:10 BELKIS DUMONT DPM Mar 18, 2020 12:34
--- NOTE | 2020-03-18 12:47 | Physician Query Clarification ---
PQ-Further Specificity Admission/Discharge Admission Date: Mar 14, 2020 at 11:29 Discharge Date: Mar 17, 2020 at 19:15 The medical record reflects the following clinical scenario: History/Risk Factors: osteomyelitis rt foot Clinical Findings: abscess rt foot Treatment: incision and drainage rt foot Question: Can you further specify the deepest level of the I&D per the clinical indicators above? It was down to deep fascia, muscle and bone. I open up the foot from top to bottom and removed the infected bone in between. Please document a response in the Progress Notes or Discharge Summary. 1. flexor tendons 2. subcutaneous tissue 3. Other, with explanation of the clinical findings. 4. Clinically undetermined, no explanation for the clinical findings. PHYSICIAN RESPONSE Can you specify per above: 1 Please remember a lack of response to the above will prompt a phone page by CDI/Coding staff. In responding to this query, please exercise your independent professional judgment. The purpose of this communication is to more accurately reflect the complexity of your patients condition. The fact that a question is asked does not imply that any particular answer is desired or expected. Thank you for your timely response to this clarification. Requestors name: Funmilayo THIS PHYSICIAN QUERY FORM IS A PERMANENT PART OF THE MEDICAL RECORD FUNMILAYO SPANGLER Mar 18, 2020 12:47 BELKIS DUMONT DPM Mar 19, 2020 08:59
== END 2020-03-17 19:15 | disposition home health service (06) | DRG 853 ==
LOC: EDUNIT# 10:09 → ER 10:11 → ICU 11:29 → 4TH 03-15 14:37
PROVIDERS: ADMIT Family Medicine; ATTEND Family Medicine
PROC: 0L9V0ZZ Drainage of Right Foot Tendon, Open Approach (ICD-10-PCS; 2020-03-15)
PROC: 0QBN0ZZ Excision of Right Metatarsal, Open Approach (ICD-10-PCS; 2020-03-15)
PROC: 0Y6M0ZC Detachment at Right Foot, Partial 3rd Ray, Open Approach (ICD-10-PCS; principal; 2020-03-15 10:00)
DX: A41.9 Sepsis, unspecified organism (principal); R65.20 Severe sepsis without septic shock; E11.10 Type 2 diabetes mellitus with ketoacidosis without coma; N17.9 Acute kidney failure, unspecified; E11.69 Type 2 diabetes mellitus with other specified complication; M86.9 Osteomyelitis, unspecified; E11.621 Type 2 diabetes mellitus with foot ulcer; L97.416 Non-pressure chronic ulcer of right heel and midfoot with bone involvement without evidence of necrosis; L97.516 Non-pressure chronic ulcer of other part of right foot with bone involvement without evidence of necrosis; L02.611 Cutaneous abscess of right foot; L03.115 Cellulitis of right lower limb; E11.52 Type 2 diabetes mellitus with diabetic peripheral angiopathy with gangrene; E11.42 Type 2 diabetes mellitus with diabetic polyneuropathy; L97.429 Non-pressure chronic ulcer of left heel and midfoot with unspecified severity; E87.1 Hypo-osmolality and hyponatremia; M79.7 Fibromyalgia; E87.6 Hypokalemia; K57.90 Diverticulosis of intestine, part unspecified, without perforation or abscess without bleeding; G43.909 Migraine, unspecified, not intractable, without status migrainosus; Z79.4 Long term (current) use of insulin
CPT/HCPCS: 36415; 71045; 73620; 80048; 80053; 80202; 81000; 82010; 82274; 82550; 82553; 82805; 82962; 83036; 83605; 83690; 83735; 83874; 83880; 84100; 84145; 84443; 84484; 85007; 85025; 85027; 85610; 85652; 85730; 86141; 87015; 87040; 87045; 87046; 87070; 87075; 87076; 87077; 87081; 87088; 87185; 87186; 87205; 87324; 87449; 87493; 87899; 93005; 93041; 96361; 96365; 96375

== ENCOUNTER 2020-03-25 09:18 | Outpatient (CLI) | payer BC ==
[~2020-03-25] VITALS: Ht 172.7 cm; Wt 102.2 kg
[~2020-03-25 09:18] MED LIST changes: +AMOX-358 PO; +CHOL50005 PO; +DULO60CA59 PO; +FURO20TA4 PO; +GABA-486 PO; +HYDR-3820 PO; +HYOS-6 PO; +INSU100I14 SC; +INSU100I32 SC; +LINE600T12 PO; +LISD30CA3 PO; +MELA5TAB14 PO; +MULT-1136 PO; +OXYC20TA54 PO
== END 2020-03-25 14:26 ==
LOC: PREOP 09:18 → EDSTATUS 10:30 → PREOP 14:26
PROVIDERS: ATTEND Podiatrist Foot & Ankle Surgery
DX: Z01.818 Encounter for other preprocedural examination (principal); Z11.59 Encounter for screening for other viral diseases
CPT/HCPCS: 87635

== ENCOUNTER 2020-08-07 19:53 | Emergency (ER) | payer BC ==
[~2020-08-07] VITALS: Ht 172 cm; Wt 100.0 kg
[2020-08-07 20:11] LABS: BASOPHILS # (AUTO) 0.1 10^3/uL (0.0-0.1); BASOPHILS % (AUTO) 1 % (0-10); EOSINOPHILS # (AUTO) 0.2 10^3/uL (0.0-0.3); EOSINOPHILS % (AUTO) 2 % (0-10); HEMATOCRIT 38 % (35-52); HEMOGLOBIN 12.6 G/DL (11.5-16.0); LYMPHOCYTES # (AUTO) 3.2 X 10^3 (1.0-4.0); LYMPHOCYTES % (AUTO) 34 % (12-44); MEAN CORPUSCULAR HEMOGLOBIN 28 PG (25-34); MEAN CORPUSCULAR HGB CONC 34 G/DL (32-36); MEAN CORPUSCULAR VOLUME 84 FL (80-99); MONOCYTES # (AUTO) 0.6 X 10^3 (0.0-1.0); MONOCYTES % (AUTO) 7 % (0-12); NEUTROPHILS # (AUTO) 5.6 X 10^3 (1.8-7.8); NEUTROPHILS % (AUTO) 58 % (42-75); PLATELET COUNT 273 10^3/uL (130-400); WHITE BLOOD COUNT 9.7 10^3/uL (4.3-11.0)
--- NOTE | 2020-08-07 20:13 | ED Lower Extremity ---
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 Nursing Sepsis Screen: No Definite Risk Source: patient Exam Limitations: no limitations History of Present Illness Date Seen by Provider: Aug 07, 2020 Time Seen by Provider: 20:10 Initial Comments To ER with c/o left proximal tibia/fibula pain after falling in her yard. Currently following with Dr Preston for an ulcer on plantar surface of left foot. insulin dependent diabetic. Onset: just prior to arrival Severity: moderate Pain/Injury Location: left foot Method of Injury: fell Modifying Factors: Worse With Movement Allergies and Home Medications Allergies Coded Allergies: Sulfa (Sulfonamide Antibiotics) (Verified Allergy, Mild, Hives, 03/14/20) Home Medications Amoxicillin/Potassium Clav 1 Each Tablet, 1 EACH PO BID Prescribed by: SCOTT COLLINS on 03/17/20 1413 Cholecalciferol (Vitamin D3) 1,250 Mcg Capsule, 1,250 MCG PO TUESDAY, (Reported) Doxycycline Hyclate 100 Mg Capsule, 100 MG PO BID Prescribed by: SCOTT COLLINS on 03/17/20 1533 Duloxetine HCl 60 Mg Capsule.dr, 60 MG PO DAILY, (Reported) Fluconazole 150 Mg Tablet, 150 MG PO TUESDAY, (Reported) Furosemide 20 Mg Tablet, 20 MG PO DAILY PRN for FLUID RETENTION, (Reported) Gabapentin 100 Mg Capsule, 300 MG PO TID PRN for PAIN-BREAKTHROUGH, (Reported) CAN TAKE 3 (100MG) CAPS UP TO THREE TIMES A DAY Hydrocodone/Acetaminophen 1 Each Tablet, 1 TAB PO Q6H PRN for PAIN-MODERATE (5- 7), (Reported) Hyoscyamine Sulfate 0.125 Mg Tab.rapdis, 0.125 MG PO Q4H PRN for CRAMPS, (Reported) Insulin Aspart 300 Units/3 Ml Solution, UNITS SC TIDPC, (Reported) USES PER SLIDING SCALE Insulin Degludec 100 Unit/1 Ml Insuln.pen, 30 UNITS SC HS, (Reported) Lisdexamfetamine Dimesylate 30 Mg Capsule, 30 MG PO DAILY, (Reported) Melatonin 5 Mg Tablet, 5 MG PO HS PRN for SLEEP, (Reported) Multivitamin 1 Each Tablet, 1 EACH PO DAILY, (Reported) Oxycodone HCl 20 Mg Tab.er.12h, 20 MG PO Q12H PRN for PAIN-SEVERE (8-10), (Reported) Oxycodone Myristate 18 Mg Cap.spr.12, 18 MG PO BID Prescribed by: ADRIAN MOTLEY on 08/07/202111 Patient Home Medication List Home Medication List Reviewed: Yes Review of Systems Constitutional: see HPI EENTM: see HPI Respiratory: no symptoms reported Cardiovascular: no symptoms reported Genitourinary: no symptoms reported Musculoskeletal: see HPI Skin: no symptoms reported Psychiatric/Neurological: No Symptoms Reported Past Vhadajh-Burxqs-Kwpkzx Hx Patient Social History Alcohol Use: Denies Use Recreational Drug Use: No Smoking Status: Never a Smoker Recent Foreign Travel: No Contact w/Someone Who Travel: No Recent Infectious Disease Expo: No Physical Abuse: No Sexual Abuse: No Mistreated: No Fear: No Immunizations Up To Date Date of Pneumonia Vaccine: Jun 12, 2015 Date of Influenza Vaccine: Sep 03, 2019 Seasonal Allergies Seasonal Allergies: No Past Medical History Surgeries: Yes (DEBRIDEMENTS OF FOOT ULCER; COLONOSCOPY) Breast, Section, Gallbladder Respiratory: No Currently Using CPAP: No Currently Using BIPAP: No Cardiac: No Neurological: Yes (FIBROMYALGIA) Headaches /Migraines, Neuropathy Reproductive Disorders: No DICTAPHONE TYPIST History: Menopausal Sexually Transmitted Disease: No HIV/AIDS: No Genitourinary: No Gastrointestinal: Yes Diverticulosis, Chronic Diarrhea Musculoskeletal: Yes (RIGHT CALCANEOUS FRACTURE) Fibromyalgia, Fractures Endocrine: Yes Diabetes, Insulin dep HEENT: No Cancer: No Psychosocial: No Integumentary: Yes (CHRONIC RIGHT DIABETIC FOOT ULCER) Blood Disorders: No Family Medical History Patient reports no known family medical history. Physical Exam Vital Signs Vital Signs - First Documented 08/07/20 19:54 Temp 36.4 Pulse 100 Resp 24 B/P (MAP) 184/92 (122) Pulse Ox 98 O2 Delivery Venturi Mask Capillary Refill : Less Than 3 Seconds Height, Weight, BMI Height: 5'8.00" Weight: 170lbs. oz. 77.961161mt; 33.00 BMI Method:Stated General Appearance: WD/WN, no apparent distress Respiratory: no respiratory distress, no accessory muscle use, other (tachypneic, could be from pain or from DKA. Will check labs) Hips: bilateral hip non-tender, bilateral hip normal inspection, bilateral hip normal range of motion Legs: right leg non-tender; bilateral leg normal inspection; right leg normal range of motion; left leg other (left proximal tibia tender to palpation) Knees: bilateral knee non-tender, bilateral knee normal inspection, bilateral knee normal range of motion Ankles: bilateral ankle non-tender, bilateral ankle normal inspection, bilateral ankle normal range of motion Feet: bilateral foot non-tender, bilateral foot normal range of motion; left foot other (ulcer to plantar surface of left foot at the 1st mtp joint. ) Neurologic/Psychiatric: alert, normal mood/affect, oriented x 3 Skin: normal color, warm/dry Progress/Results/Core Measures Results/Orders Lab Results Laboratory Tests Test 08/07/20 20:02 Range/Units White Blood Count 9.7 4.3-11.0 10^3/uL Red Blood Count 4.49 4.35-5.85 10^6/uL Hemoglobin 12.6 11.5-16.0 G/DL Hematocrit 38 35-52 % Mean Corpuscular Volume 84 80-99 FL Mean Corpuscular Hemoglobin 28 25-34 PG Mean Corpuscular Hemoglobin Concent 34 32-36 G/DL Red Cell Distribution Width 13.5 10.0-14.5 % Platelet Count 273 130-400 10^3/uL Mean Platelet Volume 10.0 7.4-10.4 FL Neutrophils (%) (Auto) 58 42-75 % Lymphocytes (%) (Auto) 34 12-44 % Monocytes (%) (Auto) 7 0-12 % Eosinophils (%) (Auto) 2 0-10 % Basophils (%) (Auto) 1 0-10 % Neutrophils # (Auto) 5.6 1.8-7.8 X 10^3 Lymphocytes # (Auto) 3.2 1.0-4.0 X 10^3 Monocytes # (Auto) 0.6 0.0-1.0 X 10^3 Eosinophils # (Auto) 0.2 0.0-0.3 10^3/uL Basophils # (Auto) 0.1 0.0-0.1 10^3/uL Sodium Level 136 135-145 MMOL/L Potassium Level 3.8 3.6-5.0 MMOL/L Chloride Level 101 98-107 MMOL/L Carbon Dioxide Level 25 21-32 MMOL/L Anion Gap 10 5-14 MMOL/L Blood Urea Nitrogen 11 7-18 MG/DL Creatinine 1.02 0.60-1.30 MG/DL Estimat Glomerular Filtration Rate 57 BUN/Creatinine Ratio 11 Glucose Level 308 H 70-105 MG/DL Calcium Level 8.8 8.5-10.1 MG/DL Corrected Calcium 9.2 8.5-10.1 MG/DL Total Bilirubin 0.6 0.1-1.0 MG/DL Aspartate Amino Transf (AST/SGOT) 22 5-34 U/L Alanine Aminotransferase (ALT/SGPT) 24 0-55 U/L Alkaline Phosphatase 146 H 40-136 U/L Total Protein 7.4 6.4-8.2 GM/DL Albumin 3.5 3.2-4.5 GM/DL My Orders Orders - ADRIAN MOTLEY ROUND BONER Cbc With Automated Diff (08/07/20 20:04) Comprehensive Metabolic Panel (08/07/20 20:04) Tibia/Fibula, Left, 2 Views (08/07/20 20:04) Ed Iv/Invasive Line Start (08/07/20 20:04) Fentanyl Injection (Sublimaze Injection (08/07/20 20:15) Rx-Hydrocodone/Apap 5-325 Mg (Rx-Vicodin (08/07/20 21:00) Medications Given in ED Vital Signs/I&O 08/07/20 08/07/20 19:54 21:46 Temp 36.4 36.4 Pulse 100 89 Resp 24 18 B/P (MAP) 184/92 (122) 130/89 (122) Pulse Ox 98 99 O2 Delivery Venturi Mask Room Air Blood Pressure Mean: 122 Departure Communication (Admissions) Family Conversation 2101-Pain well controlled after 1x dose of fentanyl 75mcg IV. Compartments are all soft. able to actively plantar and dorsiflex the left foot. Old chart has a history of fibromyalgia listed. She statse she's got aprescription for oxycodone but "everyone is out of it" and insurance wont cover it. States she was told that if she had xtampza ER written she could get that filled and covered, however. Reports her oxycodone ER dose was 20mg. 2037-assisted with Dr. Santoro. Recommends a knee immobilizer, toe-touch weightbearing, crutches he'll follow up with her in the clinic. Impression Primary Impression: Closed fracture of lateral portion of left tibial plateau Qualified Codes: S82.122A - Displaced fracture of lateral condyle of left tibia, initial encounter for closed fracture Disposition: 01 HOME, SELF-CARE Condition: Stable Departure-Patient Inst. Decision time for Depature: 20:38 Referrals: MAXIMILIAN BELLE DO (PCP/Family) Primary Care Physician MARCELA SANTORO MD Patient Instructions: NO INSTRUCTIONS GIVEN Add. Discharge Instructions: 1. If you develop steadily increasing pain becomes intolerable, anything else that concerns U you should come back to the emergency room, this could represent a condition called compartment syndrome which is related to the swelling involved with the fracture. Otherwise, call Dr. Santoro's office tomorrow to make an appointment to be seen for follow-up in the clinic. You can do toe touch weightbearing as discussed in the emergency room on the left foot, use crutches, pain medication as directed. All discharge instructions reviewed with patient and/or family. Voiced understanding. Scripts Oxycodone Myristate (Xtampza ER) 18 Mg Cap.spr.12 18 MG PO BID for 7 Days, #14 EA Prov: ADRIAN MOTLEY ROUND BONER 08/07/20 Copy Copies To 1: MAXIMILIAN BELLE DO; MARCELA SANTORO MD, PETER J ROUND BONER Aug 07, 2020 20:13
[2020-08-07] MEDS ORDERED: fentaNYL INJECTION 100 MCG/2 ML AMP IVP ONE (20:15)
[2020-08-07 20:28] LABS: ALBUMIN 3.5 GM/DL (3.2-4.5); BILIRUBIN,TOTAL 0.6 MG/DL (0.1-1.0); CALCIUM 8.8 MG/DL (8.5-10.1); CREATININE SERUM 1.02 MG/DL (0.60-1.30); POTASSIUM 3.8 MMOL/L (3.6-5.0); TOTAL PROTEIN 7.4 GM/DL (6.4-8.2)
[2020-08-07] MEDS ORDERED: RX-HYDROCODONE/APAP 5/325 MG #4 TAB PK PO PRN (21:00)
[2020-08-07] MEDS ORDERED: OXYC9CAP PO (21:02)
[2020-08-07] MEDS ORDERED: OXYC18CA PO (21:12)
--- NOTE | 2020-08-07 21:25 | Diagnostic Imaging Report ---
INDICATION: Left leg pain after injury. EXAMINATION: Left tibia and fibula, 08/07/2020. FINDINGS: Four views of the left tibia and fibula. There is a vertical fracture line extending through the lateral tibial plateau with minimal depression noted. The remaining osseous structures appear to be intact. No dislocation. IMPRESSION: Lateral tibial plateau fracture. Dictated by: Dictated on workstation # [id number]
[2020-08-07 21:46] VITALS: BP 130/89
== END 2020-08-07 21:47 | disposition home or self-care (01) ==
LOC: EDUNIT# 19:53 → ER 19:55
DX: S82.122A Displaced fracture of lateral condyle of left tibia, initial encounter for closed fracture (principal); E11.40 Type 2 diabetes mellitus with diabetic neuropathy, unspecified; E11.621 Type 2 diabetes mellitus with foot ulcer; L97.519 Non-pressure chronic ulcer of other part of right foot with unspecified severity; G43.909 Migraine, unspecified, not intractable, without status migrainosus; M79.7 Fibromyalgia; Z88.2 Allergy status to sulfonamides; Z79.4 Long term (current) use of insulin
CPT/HCPCS: 36415; 73590; 80053; 85025

== ENCOUNTER 2020-08-18 11:45 | Outpatient (CLI) | payer BC ==
[~2020-08-18] VITALS: Ht 172.7 cm; Wt 95.5 kg
[~2020-08-18 11:45] MED LIST changes: +OXYC18CA PO; +OXYC9CAP PO
== END 2020-08-18 14:15 ==
LOC: PREOP 11:45
PROVIDERS: ATTEND Orthopaedic Surgery
DX: Z01.818 Encounter for other preprocedural examination (principal)

== ENCOUNTER 2020-08-20 06:00 | Day surgery (SDC) | payer BC ==
--- NOTE | 2020-08-18 11:46 | HISTORY AND PHYSICAL ---
DATE OF SERVICE: ADMISSION HISTORY AND PHYSICAL This will be for outpatient of surgery. DATE OF SERVICE/DATE OF SURGERY: 08/20/2020 for open reduction and internal fixation of the left lateral tibial plateau. HISTORY OF PRESENT ILLNESS: The patient is a 54-year-old female, who injured her left knee when she was struck by her dogs. She was found to have initially a nondisplaced lateral tibial plateau fracture. However, on followup there was some displacement, the patient was counseled regarding treatment options and elected to proceed with surgical intervention due to the displacement. REVIEW OF SYSTEMS: No chest pain, no shortness of breath, no dysuria. PAST MEDICAL HISTORY: Diabetes, headaches, fibromyalgia, irritable bowel syndrome, neuropathy, thyromegaly. PAST SURGICAL HISTORY: , bunionectomy, cholecystectomy, breast reduction, toe amputation. FAMILY HISTORY: Significant for diabetes. PRIMARY CARE PROVIDER: . MEDICATIONS: Insulin, hydrocodone, OxyContin, Lyrica, Meloxicam, gabapentin, Vyvanse, Lasix, potassium, duloxetine, diazepam, tramadol, Glucophage, furosemide, Zofran, doxycycline. ALLERGIES: SULFA. SOCIAL HISTORY: The patient denies alcohol, tobacco use. RADIOGRAPHS: Reveal a lateral tibial plateau fracture with diastasis of the fracture site with mild depression. PHYSICAL EXAMINATION: GENERAL: The patient is well-developed, well-nourished, in no acute distress. HEENT: Normocephalic, atraumatic. Pupils are equal, round, reactive to light. Oropharynx is clear. NECK: Supple, no lymphadenopathy. LUNGS: Clear to auscultation bilaterally. HEART: Regular rate and rhythm. ABDOMEN: Soft, nontender, nondistended. EXTREMITIES: The left knee demonstrates tenderness along her medial collateral ligament with 1+ valgus laxity. She is tender along the lateral tibial plateau, but has negative anterior and posterior drawer. No skin lesions are noted. Sensation is intact distally with symmetric pulses. IMPRESSION: Displaced left lateral tibial plateau fracture. PLAN: Internal fixation of left lateral tibial plateau. We discussed risks, benefits, options, ramifications and recovery at length with the patient. She understands and wishes to proceed. Job ID: [id number] DocumentID: [id number] Dictated Date: 08/18/2020 11:23:33 Haul Cane Brakeman Date: 08/18/2020 11:45:39 Dictated By: MARCELA ARTEAGA MD
[~2020-08-20] VITALS: Ht 172.7 cm; Wt 102.0 kg
[2020-08-20] VITALS (10 sets, daily range): BP systolic 87–126; BP diastolic 56–79
[~2020-08-20 06:00] MED LIST changes: -OXYC-471 PO
[2020-08-20] MEDS ORDERED: LACTATED RINGERS 1,000 ML IV PRN (06:11)
[2020-08-20] MEDS ORDERED: ceFAZolin INJECTION 1,000 MG in WATER (STERILE) FOR INJECTION 10 ML IV ONE (06:15)
[2020-08-20] MEDS ORDERED: proPOfol 200 MG/20 ML (DIPRIVAN) VIAL IV ONE (07:01)
[2020-08-20] MEDS ORDERED: ONDANSETRON 4 MG/2 ML (SDV) Z0FRAN ONE (07:01)
[2020-08-20] MEDS ORDERED: fentaNYL INJECTION 100 MCG/2 ML AMP ONE (07:01)
[2020-08-20] MEDS ORDERED: LIDOCAINE PF 2% 5 ML (XYLOCAINE) VIAL ONE (07:01)
[2020-08-20] MEDS ORDERED: MIDAZOLAM 2 MG/2 ML (VERSED) VIAL ONE (07:01)
[2020-08-20] MEDS ORDERED: SEVOFLURANE (ULTANE) 15 ML INHAL SOLN ONE (07:01)
--- NOTE | 2020-08-20 07:28 | Progress Note-Pre Operative ---
Pre-Operative Progress Note H&P Reviewed The H&P was reviewed, patient examined and no changes noted. Date Seen by Provider: Aug 20, 2020 Time Seen by Provider: 07:20 Date H&P Reviewed: Aug 20, 2020 Time H&P Reviewed: 07:11 Pre-Operative Diagnosis: displaced left lateral tibia plateau fracture MARCELA ARTEAGA MD Aug 20, 2020 07:28
--- NOTE | 2020-08-20 07:29 | Progress Note-Post Operative ---
Post-Operative Progess Note Surgeon (s)/Driver Education Road Instructor (s) Surgeon MARCELA ARTEAGA MD Driver Education Road Instructor: Samuel King Pre-Operative Diagnosis displaced left lateral tibia plateau fracture Post-Operative Diagnosis displaced left lateral tibia plateau fracture Procedure & Operative Findings Date of Procedure 08/20/20 Procedure Performed/Findings left lateral tibia plateau ORIF Anesthesia Type GETA Estimated Blood Loss Estimated blood loss (mL): minimal Specimens/Packing Specimens Removed none Packing: none MARCELA ARTEAGA MD Aug 20, 2020 07:29
[2020-08-20] MEDS ORDERED: BUPIVACAINE 0.25% 30 ML (SENSORCAINE) VIAL ONE (07:38)
[2020-08-20] MEDS ORDERED: ROCURONIUM 10 MG/ML 5 ML SYRINGE IV ONE (08:05)
[2020-08-20] MEDS ORDERED: GLYCOPYRROLATE 0.2 MG/ML (ROBINUL) 2 ML VIAL ONE (08:22)
[2020-08-20] MEDS ORDERED: NEOSTIGMINE 3 MG/3 ML VIAL ONE (08:22)
[2020-08-20] MEDS ORDERED: HYDROmorphone 2 MG/ML VIAL (DILAUDID) ONE (08:59)
[2020-08-20] MEDS ORDERED: ONDANSETRON 4 MG/2 ML (SDV) Z0FRAN IVP PRN (09:00)
[2020-08-20] MEDS ORDERED: HYDROmorphone 2 MG/ML VIAL (DILAUDID) IV ONE (09:00)
[2020-08-20] MEDS ORDERED: morphine INJ 10 MG/ML 1ML (SYR OR VIAL) IVP ONE (09:00)
--- NOTE | 2020-08-20 09:07 | Diagnostic Imaging Report ---
INDICATION: Tibial plateau fracture. FINDINGS: Intraoperative fluoroscopic views were obtained during ORIF of the tibial plateau fracture. Screws are in place across the tibial plateau fracture with anatomic alignment. IMPRESSION: Anatomic alignment post ORIF of the tibial plateau fracture. Dictated by: Dictated on workstation # [id number]
[2020-08-20] MEDS: oxyCODONE/APAP 5/325MG (PERCOCET 5) TABLET PO PRN ×2 (09:42→11:19)
--- NOTE | 2020-08-20 09:49 | OPERATIVE REPORT ---
DATE OF SERVICE: 08/20/2020 PREOPERATIVE DIAGNOSIS: Displaced left lateral tibial plateau fracture. POSTOPERATIVE DIAGNOSIS: Displaced left lateral tibial plateau fracture. PROCEDURE PERFORMED: Open reduction and internal fixation, left tibial plateau. SURGEON: Raul Arteaga MD. DIETETIC ASSISTANT: Samuel King, who assisted throughout the procedure and closed the incisions. ANESTHESIA: General endotracheal by Dr. Bishop. TOURNIQUET TIME: Not applicable. ESTIMATED BLOOD LOSS: Minimal. DRAINS: None. COMPLICATIONS: None. POSTOPERATIVE PLAN: Toe touch weightbearing with 0 to 90 degrees range of motion for four weeks. The patient was transferred to the recovery room awake and in stable condition. STATEMENT OF MEDICAL NECESSITY: The patient is a 54-year-old female, who almost two weeks ago, sustained a lateral tibial plateau fracture. Initially, this was nondisplaced; however, there was some displacement on followup radiographs. The patient was counseled regarding treatment options and elected to proceed with surgical intervention. DESCRIPTION OF PROCEDURE: After risks and benefits of the procedure were discussed and questions were answered, an informed consent was signed and placed on the chart. The operative site was confirmed in the preoperative holding area initialed by the surgeon. The patient was then transported to the operating room and after adequate levels of general endotracheal anesthetic were obtained, a timeout was called, confirming the operative site. The left lower extremity was prepped and draped in the usual sterile fashion. Under fluoroscopic visualization, two stab incisions were made on the lateral aspect of the leg anterior to the fibula. A blunt dissection was carried out using a hemostat to the bony surface. Two parallel guidewires were then passed across the fracture site, this revealed good reduction. A 6.5 partially threaded cancellous screw was placed anteriorly and a 7.3 partially threaded Synthes cancellous screw was placed posteriorly. Her bone quality was extremely poor and the bite on the screws was poor; however, the fracture was well reduced and stable under live time fluoroscopy. Fluoroscopy in the AP, lateral and oblique planes revealed a well-reduced fracture with well-placed hardware. The wounds were copiously irrigated and closed with 3-0 nylon in vertical mattress interrupted fashion. A soft dressing and brace were applied and the patient was transferred to the recovery room awake and in stable condition. Job ID: [id number] DocumentID: [id number] Dictated Date: 08/20/2020 08:40:16 Assistant Statistician Date: 08/20/2020 09:49:13 Dictated By: RAUL ARTEAGA MD
[2020-08-20] MEDS ORDERED: OXYC-471 PO (10:45)
--- NOTE | 2020-08-20 11:16 | Physical Therapy Ortho Eval ---
PT Orthopedic Evaluation Type of Surgery left lateral tibial plateau fx Prior Level of Function Locomotion (Upon Admit): Standard Walker (4 wheeled walker) Subjective Subjective Patient in bed pre tx, agrees to PT, has 5/10 pain in left leg, very drowsy. Entry Into Home: Stairs Without Railing Steps Into Home: 4 Objective Objective has knee brace on left leg Transfer Transfers (B, C, W/C) (FIM): 4 Gait Summary/Comments Patient supine to sit with SBA, dizzy upon standing but improved after a minute. Patient ambulated 10' with a 4 wheeled walker with CGA. Patient is complaints with TTWB on the left side. Patient instructed to use her brakes on the 4 wheeled walker when she steps with her right leg, patient also states she has a normal rolling walker at home she can use. Steps not performed at this time because she cannot hop up onto it. Patient instructed to have enough help when she gets home in order to get into the house. Treatment Rendered Treatment: Therapeutic Exercises, Gait Train, Reviewed Precautions Exercise Instruction: Quad Sets, Ankle Pumps glute sets Assessment/Goals Goal Time Frame: 1 Visit Understands HEP: Yes Safe Ambulation: Yes Plan Treatment Plan: Discharge PT/Family Agrees to Plan: Yes Time Time In: 1035 Time Out: 1056 Total Billed Treatment Time: 21 Billed Treatment Time 1 visit SARAH 21 HENNY PHILLIPS PT Aug 20, 2020 11:16
--- NOTE | 2020-08-20 11:29 | Anesthesia-General Post-Op ---
General Patient Condition Mental Status/LOC: Same as Preop Cardiovascular: Satisfactory Nausea/Vomiting: Absent Respiratory: Satisfactory Pain: Controlled Complications: Absent Post Op Complications Complications None Follow Up Care/Instructions Patient Instructions None needed. Anesthesia/Patient Condition Patient Condition Patient was seen this morning after the procedure and she was doing well, C/O some LE pain which is to be expected, stable vital signs, no apparent adverse anesthesia problems. CAYLA BURRIS DO Aug 20, 2020 11:29
== END 2020-08-20 11:40 | disposition home or self-care (01) ==
LOC: SDC 06:00
PROVIDERS: ATTEND Orthopaedic Surgery
DX: S82.142A Displaced bicondylar fracture of left tibia, initial encounter for closed fracture (principal); E11.40 Type 2 diabetes mellitus with diabetic neuropathy, unspecified; Z79.4 Long term (current) use of insulin; Z88.2 Allergy status to sulfonamides; Z90.49 Acquired absence of other specified parts of digestive tract; W54.1XXA Struck by dog, initial encounter
CPT/HCPCS: 27536; 76000; 82962; 84703; 87081; 97161; C1713 ×3; C1769

== ENCOUNTER → 2020-08-20 | Outpatient (CLI) | payer BC ==
[~2020-08-20] MED LIST changes: +OXYC-471 PO
[2020-08-20 07:38] LABS: ALBUMIN 3.5 GM/DL (3.2-4.5); BILIRUBIN,TOTAL 1.1 MG/DL (0.1-1.0); CALCIUM 9.3 MG/DL (8.5-10.1); MAGNESIUM 1.6 MG/DL (1.6-2.4); POTASSIUM 3.5 MMOL/L (3.6-5.0); TOTAL PROTEIN 7.3 GM/DL (6.4-8.2)
== END ==
LOC: LAB 06:08
PROVIDERS: ATTEND Internal Medicine
DX: E11.65 Type 2 diabetes mellitus with hyperglycemia (principal); E53.8 Deficiency of other specified B group vitamins; R53.83 Other fatigue; E83.52 Hypercalcemia
CPT/HCPCS: 36415; 80053; 82308; 83036; 83735

== ENCOUNTER 2021-02-05 16:37 | Outpatient (RCR) | payer BC ==
[~2021-02-05 16:37] MED LIST changes: +OXYC1TAB11 PO
== END 2021-02-24 15:17 | disposition home or self-care (01) ==
PROVIDERS: ATTEND Orthopaedic Surgery
DX: S82.125D Nondisplaced fracture of lateral condyle of left tibia, subsequent encounter for closed fracture with routine healing (principal)

== ENCOUNTER → 2022-04-21 | Outpatient (CLI) | payer BC, OTHER ==
[~2022-04-21] MED LIST changes: +DOXY100C5 PO; -FLUC150T2 PO; +FLUC150T41 PO
--- NOTE | 2022-04-21 09:58 | Diagnostic Imaging Report ---
PROCEDURE: MR imaging left lower extremity without contrast. TECHNIQUE: Multiplanar, multisequence non contrast enhanced MR imaging of the left lower extremity was accomplished. INDICATION: Forefoot redness and scaling across the forefoot area. Anterior to posterior. No actual ulcer. Attention great toe area. Diabetes. EXAMINATION: Left lower extremity MRI without contrast 04/21/2022. FINDINGS: There is diffuse abnormal signal intensity throughout the distal and proximal 1st phalanges with diffuse T2 hyperintensity present. There is fluid within the adjacent 1st metatarsophalangeal joint. Mild edema is seen within the 1st metatarsal head. There is diffuse surrounding T2 hyperintensity within the soft tissues with no drainable abscess appreciated. There is T2 hyperintensity and T1 hypointensity throughout the 2nd and 3rd metatarsal heads. Surrounding soft tissue edema is noted. The visualized tendons appear intact. IMPRESSION: 1. Abnormal signal intensity involving the distal and proximal 1st phalanges and adjacent 1st metatarsal head with similar findings throughout the 2nd and 3rd metatarsal heads. Underlying fractures not excluded. Otherwise findings suggestive of osteomyelitis with surrounding changes of edema and/or cellulitis. 2. No evidence for a drainable abscess. Dictated by: Dictated on workstation # [id number]
== END ==
LOC: RAD 08:21
PROVIDERS: ATTEND Podiatrist Foot & Ankle Surgery
DX: M86.172 Other acute osteomyelitis, left ankle and foot (principal)

== ENCOUNTER 2022-04-29 07:54 | Outpatient (CLI) | payer BC, OTHER ==
[~2022-04-29] VITALS: Ht 172.7 cm; Wt 100.0 kg
[2022-04-29] MEDS ORDERED: HYDR-3820 PO (09:17)
[2022-04-29] MEDS ORDERED: OXYC9CAP PO (09:17)
[2022-04-29] MEDS ORDERED: LISD40CA3 PO (09:17)
[2022-04-30] MEDS ORDERED: CEPH500C PO (14:08)
[2022-04-30] MEDS ORDERED: HYDR-3817 PO (14:08)
== END 2022-04-29 09:36 | disposition home or self-care (01) ==
LOC: PREOP 07:54
PROVIDERS: ATTEND Podiatrist Foot & Ankle Surgery
DX: Z01.818 Encounter for other preprocedural examination (principal)

== ENCOUNTER 2022-04-30 11:19 | Day surgery (SDC) | payer BC, OTHER ==
[~2022-04-30] VITALS: Ht 172.7 cm; Wt 100.0 kg
[2022-04-30] VITALS (10 sets, daily range): BP systolic 104–155; BP diastolic 64–87
[~2022-04-30 11:19] MED LIST changes: +LISD40CA3 PO
[2022-04-30] MEDS ORDERED: LACTATED RINGERS 1,000 ML IV PRN (12:00)
[2022-04-30] MEDS ORDERED: MIDAZOLAM 2 MG/2 ML (VERSED) VIAL ONE (12:30)
[2022-04-30] MEDS ORDERED: fentaNYL INJ 100 MCG/2 ML AMP ONE (12:30)
[2022-04-30] MEDS ORDERED: SEVOFLURANE (ULTANE) 15 ML INHAL SOLN ONE ×2 (12:30→13:47)
[2022-04-30] MEDS ORDERED: ONDANSETRON 4 MG/2 ML (SDV) Z0FRAN ONE (12:30)
[2022-04-30] MEDS ORDERED: proPOfol 200 MG/20 ML (DIPRIVAN) VIAL IV ONE (12:30)
[2022-04-30] MEDS ORDERED: LIDOCAINE PF 2% 5 ML (XYLOCAINE) VIAL ONE (12:30)
[2022-04-30] MEDS ORDERED: LIDOCAINE 1% INJ 20 ML VIAL ONE (12:40)
[2022-04-30] MEDS ORDERED: BUPIVACAINE 0.5% 30 ML (SENSORCAINE) VIAL ONE (12:40)
--- NOTE | 2022-04-30 12:43 | Progress Note-Pre Operative ---
Pre-Operative Progress Note H&P Reviewed The H&P was reviewed, patient examined and no changes noted. Date Seen by Provider: Apr 30, 2022 Time Seen by Provider: 12:43 Date H&P Reviewed: Apr 30, 2022 Time H&P Reviewed: 12:43 Pre-Operative Diagnosis: Osteomyelitis left foot BELKIS DUMONT DPM Apr 30, 2022 12:43
[2022-04-30] MEDS ORDERED: PHENYLEPHRINE 100 MCG/ML 10 ML (ANESTHESIA) SYR ONE (13:08)
[2022-04-30] MEDS ORDERED: HYDROmorphone 2 MG/ML VIAL (DILAUDID) IV ONE (14:00)
[2022-04-30] MEDS ORDERED: LACTATED RINGERS 1,000 ML IV SCH (14:00)
[2022-04-30] MEDS ORDERED: HYDROcodone/APAP 5 MG/325 MG (LORTAB) TAB PO PRN (14:00)
[2022-04-30] MEDS ORDERED: ONDANSETRON 4 MG/2 ML (SDV) Z0FRAN IVP PRN (14:00)
--- NOTE | 2022-04-30 14:00 | Progress Note-Post Operative ---
Post-Operative Progess Note Surgeon (s)/Solid Die Cutter (s) Surgeon BELKIS DUMONT DPM Solid Die Cutter: none Pre-Operative Diagnosis Osteomyelitis left foot Post-Operative Diagnosis same Procedure & Operative Findings Date of Procedure 04/30/22 Procedure Performed/Findings Bone biopsy of the left 3rd, 2nd and 1st metatarsal heads Anesthesia Type general Estimated Blood Loss Estimated blood loss (mL): Minimal Specimens/Packing Specimens Removed left 3rd, 2nd and 1st metatarsal head bone BELKIS DUMONT DPM Apr 30, 2022 14:00
--- NOTE | 2022-04-30 14:01 | Anesthesia-General Post-Op ---
General Patient Condition Mental Status/LOC: Same as Preop Cardiovascular: Satisfactory Nausea/Vomiting: Absent Respiratory: Satisfactory Pain: Controlled Complications: Absent Post Op Complications Complications None Follow Up Care/Instructions Patient Instructions None needed. Anesthesia/Patient Condition Patient Condition Patient is doing well, no complaints, stable vital signs, no apparent adverse anesthesia problems. No complications reported per nursing. D/C home per [facility] [place] Criteria: Yes MARIELY NICHOLSON CRNA Apr 30, 2022 14:01
[2022-04-30] MEDS ORDERED: HYDR-3817 PO (14:08)
[2022-04-30] MEDS ORDERED: CEPH500C PO (14:08)
[2022-04-30] MEDS ORDERED: DEXTROSE 50% 50 ML (IMS) SYR IV ONE (14:45)
--- NOTE | 2022-04-30 15:46 | Physical Therapy Ortho Eval ---
PT Orthopedic Evaluation Type of Surgery osteomyelitis left foot Prior Level of Function Current Living Status: Spouse Locomotion (Upon Admit): Independent Established Durable Medical Eq: Front Wheeled Walker Subjective Subjective Patient in bed pre tx, agrees to PT, has no pain at rest, has a CAM boot to use. Entry Into Home: Stairs With Railing Steps Into Home: 4 Motor Control Motor Control: Motor Control WNL ROM ROM: WFL Strength Strength: WFL Transfer SCALE: Activities may be completed with or without assistive devices. 8-Vykoqolojd-fakfwqk completes the activity by him/herself with no assistance from a helper. 5-Set-up or Clean-up Assistance-helper sets up or cleans up; patient completes activity. [place] assists only prior to or following the activity. 4-Supervision or Touching Assistance-helper provides verbal cues and/or touching/steadying and/or contact guard assistance as patient completes activity. Assistance may be provided throughout the activity or intermittently. 3-Partial/Moderate Assistance-helper does LESS THAN HALF the effort. [place] lifts, holds or supports trunk or limbs, but provides less than half the effort. 2-Substantial/Maximal Assistance-helper does MORE THAN HALF the effort. [place] lifts or holds trunk or limbs and provides more than half the effort. 1-Czgaprcfp-pqyyhh does ALL the effort. Patient does none of the effort to complete the activity. Or, the assistance of 2 or more helpers is required for the patient to complete the activity. If activity was not attempted, code reason: 7-Patient Refused. 9-Not Applicable-not attempted and the patient did not perform the activity before the current illness, exacerbation or injury. 10-Not Attempted due to Environmental Limitations-(lack of equipment, weather restraints, etc.). 88-Not Attempted due to Medical Conditions or Safety Concerns. Transfers (B, C, W/C) (QC): 4 Gait Right Lower Extremity: Right Weight Bearing Status RLE: Full Weight Bearing Left Lower Extremity: Left Weight Bearing Status LLE: Partial Weight Bearing Summary/Comments Patient ambulated 50' with a rolling walker with CGA, she has some unsteadiness but no complete LOB, she also went up one step using the walker with CGA and cues for foot placement and safety. Treatment Rendered Treatment: Therapeutic Exercises, Gait Train, Step Train Exercise Instruction: Heel Slides, Ankle Pumps Assessment/Goals Goal Time Frame: 1 Visit Understands HEP: Yes Plan Treatment Plan: Discharge PT/Family Agrees to Plan: Yes Time Time In: 1515 Time Out: 1524 Total Billed Treatment Time: 9 Billed Treatment Time 1 visit SARAH 9' HENNY PHILLIPS PT Apr 30, 2022 15:46
--- NOTE | 2022-04-30 16:02 | Diagnostic Imaging Report ---
INDICATION: Postop foot surgery. COMPARISON: 03/14/2020. FINDINGS: Two radiographic views of the left foot were obtained. There is a destructive appearance epicentered at the first metatarsophalangeal joint space. There is erosion of the adjacent osseous structures. Deformity of the distal end of the second metatarsal is also noted. Well-circumscribed lucencies are also seen within the heads of the first and third metatarsals. These are suspected to be postsurgical in nature. Deformities of the proximal margins of the third and fourth proximal phalanges are also present. These may be on the basis of nonhealed fractures, although other underlying destructive process cannot be excluded. No unexpected radiopaque foreign bodies are seen. There is moderate soft tissue swelling. IMPRESSION: 1. Destructive osteolytic appearance to the metatarsals and proximal phalanges of the left foot as described above. Findings correspond to abnormal appearance on previous MRI, may be on the basis of underlying osteomyelitis. Superimposed fracture deformities cannot be excluded. 2. No unexpected radiopaque foreign bodies. Dictated by: Dictated on workstation # [id number]
--- NOTE | 2022-05-01 00:42 | OPERATIVE REPORT ---
DATE OF SERVICE: 04/30/2022 SURGEON: Marjorie Dumont DPM. PREOPERATIVE DIAGNOSIS: Osteomyelitis, left foot. POSTOPERATIVE DIAGNOSIS: Osteomyelitis, left foot. PROCEDURE: Deep bone biopsy and culture and sensitivity to the left third, second and first metatarsal heads. WOUND CLASS: Contaminated. ANESTHESIA: General. HEMOSTASIS: Pneumatic ankle tourniquet at 250 mmHg. INDICATIONS: This is a 56-year-old female presents with swelling and chronic wound to the left great toe area. She came into the office wanting evaluation for a draining wound as well as swelling after an injury to the left great toe. X-rays indicated a significant bone destruction underneath the first metatarsophalangeal joint. To evaluate the extent of the potential chronic osteomyelitis, an MRI was taken. It indicated significant destruction associated with the first ray, but also indicated that there was some possible involvement of the second and third metatarsals. The patient wanted to confirm that these were indeed involved prior to a definitive surgical intervention. The patient is willing to proceed after risks and complications were discussed at length. No guarantees were extended to the patient and she is willing to proceed. DESCRIPTION OF PROCEDURE: The patient was brought back to the operating table, placed in secure supine position. Appropriate timeout was performed. General anesthetic was then induced. The left foot was then prepped and draped in normal sterile manner. The left foot was then elevated, allowed to exsanguinate after which the tourniquet was inflated to 250 mmHg. Attention was then directed to the dorsal aspect of the left third metatarsal head area where a 1 cm vertical longitudinal incision was created. The incision was deepened with blunt dissection down to the metatarsal where the flexor tendons were retracted. Utilizing a [employer] bone biopsy kit, 3 mm section of bone was retrieved from the third metatarsal head area. The bone appeared to be with fairly good integrity. It was not spongy. The bone that was retrieved and sent for gross and microscopic evaluation and the second portion for culture and sensitivity, did not appear to have a necrotic or yellow dysplastic appearance. The wound was flushed with copious amounts of normal saline and closure was performed with Prolene in a horizontal mattress type stitch. Attention was then directed to the left second metatarsal dorsal aspect where again a 1 cm vertical incision was created or longitudinal incision was created. The incision was deepened down to bone with blunt dissection. Once again a [employer] biopsy trephine was utilized to get a bone biopsy. At this time, this bone was a little bit more spongy and soft. A portion of it was sent for gross and microscopic evaluation. The other for culture and sensitivity. The wound was flushed with copious amounts of normal saline and closure was performed with Prolene in a horizontal mattress type stitch. Attention was then directed to the dorsal aspect of the first ray first metatarsal head area where a longitudinal incision of approximately 1.5 cm was created overlying the metatarsal head. A 4 mm piece of bone was then retrieved, which was soft to touch. Once again, this deep bone biopsy portion was sent for culture and sensitivity and the rest for pathology. The wound was flushed with copious amounts of normal saline. No purulence was identified. The wound was then reapproximated utilizing a simple and horizontal mattress type stitch. Postoperative injection consisted of 9 mL of 0.5% Marcaine injected in local infusion to the surgical sites. Postoperative dressing consisted of Betadine soaked Adaptic, sterile 4 x 4, sterile Kerlix all secured with Coban wrap. The patient tolerated the anesthesia and procedure well, was transported from the operating room to the recovery area with vital signs stable and vascular status intact to all digits of the left foot. She is to follow up in my office in 10 days' period of time or sooner if necessary. She was given a prescription for Keflex and hydrocodone. Job ID: [id number] DocumentID: [id number] Dictated Date: 04/30/2022 14:16:36 [employer] Technologist Date: 05/01/2022 00:41:14 Dictated By: MARJORIE DUMONT DPM
== END 2022-04-30 15:37 ==
LOC: SDC 11:19
PROVIDERS: ATTEND Podiatrist Foot & Ankle Surgery
DX: M86.172 Other acute osteomyelitis, left ankle and foot (principal)
CPT/HCPCS: 73620; 82947; 87070; 87075; 87077; 87081; 87186; 87205

== ENCOUNTER → 2022-05-13 | Outpatient (CLI) | payer BC ==
[~2022-05-13] MED LIST changes: +CEPH500C PO; +HYDR-3817 PO
== END ==
LOC: WOUNDCARE 13:12
PROVIDERS: ATTEND Family Medicine
DX: M86.072 Acute hematogenous osteomyelitis, left ankle and foot (principal); E11.65 Type 2 diabetes mellitus with hyperglycemia; E11.40 Type 2 diabetes mellitus with diabetic neuropathy, unspecified; L03.116 Cellulitis of left lower limb
CPT/HCPCS: 99212

== ENCOUNTER → 2022-07-19 | Outpatient (CLI) | payer BC ==
[2022-07-19 18:18] LABS: BASOPHILS # (AUTO) 0.1 10^3/uL (0.0-0.1); BASOPHILS % (AUTO) 1 % (0-10); EOSINOPHILS # (AUTO) 0.2 10^3/uL (0.0-0.3); EOSINOPHILS % (AUTO) 2 % (0-10); HEMATOCRIT 37 % (35-52); HEMOGLOBIN 12.5 g/dL (11.5-16.0); LYMPHOCYTES % (AUTO) 32 % (12-44); MEAN CORPUSCULAR HEMOGLOBIN 29 pg (25-34); MEAN CORPUSCULAR HGB CONC 34 g/dL (32-36); MEAN CORPUSCULAR VOLUME 86 fL (80-99); MEAN PLATELET VOLUME 9.7 fL (9.0-12.2); MONOCYTES # (AUTO) 0.8 10^3/uL (0.0-1.0); MONOCYTES % (AUTO) 9 % (0-12); NEUTROPHILS # (AUTO) 5.4 10^3/uL (1.8-7.8); NEUTROPHILS % (AUTO) 57 % (42-75); PLATELET COUNT 269 10^3/uL (130-400); WHITE BLOOD COUNT 9.5 10^3/uL (4.3-11.0)
[2022-07-19 18:27] LABS: POTASSIUM 4.2 MMOL/L (3.6-5.0)
[2022-07-19 18:28] LABS: ALBUMIN 3.6 GM/DL (3.2-4.5)
[2022-07-19 18:29] LABS: CALCIUM 9.1 MG/DL (8.5-10.1)
[2022-07-19 18:30] LABS: TOTAL PROTEIN 7.5 GM/DL (6.4-8.2)
[2022-07-19 18:34] LABS: CREATININE SERUM 1.07 MG/DL (0.60-1.30)
[2022-07-19 18:57] LABS: FREE T4 (FREE THYROXINE) 1.04 NG/DL (0.70-1.48)
== END ==
LOC: LAB 17:49
PROVIDERS: ATTEND Nurse Practitioner Family
DX: Z12.31 Encounter for screening mammogram for malignant neoplasm of breast (principal); Z13.220 Encounter for screening for lipoid disorders; E10.8 Type 1 diabetes mellitus with unspecified complications; F50.81 Binge eating disorder; M79.2 Neuralgia and neuritis, unspecified; M79.7 Fibromyalgia
CPT/HCPCS: 36415; 80053; 80061; 82043; 82607; 83036; 84439; 84443; 85025

== ENCOUNTER → 2022-08-15 | Outpatient (CLI) | payer BC ==
--- NOTE | 2022-08-15 10:57 | Diagnostic Imaging Report ---
INDICATION: Back pain COMPARISON: None available TECHNIQUE: 3 radiographs of the thoracic spine dated 08/15/2022. FINDINGS: Surgical clips overlying the right upper abdomen. Alignment of the thoracic spine is well maintained. Vertebral body heights are well maintained. No severe disc space height loss. No acute fracture or dislocation. No suspicious radiopaque foreign body. Minimal anterior osteophyte formation. IMPRESSION: No acute osseous abnormality with minimal scattered degenerative changes present. Dictated by: Dictated on workstation # [id number]
== END ==
LOC: RAD 10:21
PROVIDERS: ATTEND Nurse Practitioner Family
DX: M54.6 Pain in thoracic spine (principal); Z91.89 Other specified personal risk factors, not elsewhere classified
CPT/HCPCS: 72072